=== PATIENT | male | born 1955 | race African-American/Black ===

== ENCOUNTER 2018-09-17 10:08 | Emergency (ER) | payer OTHER ==
[~2018-09-17] VITALS: Ht 175.3 cm; Wt 63.5 kg
[2018-09-17] MEDS ORDERED: NORCO 5-325 TA1 EAC1 PO (12:12)
[2018-09-17 12:32] VITALS: BP 112/68
== END 2018-09-17 12:30 | disposition home or self-care (01) ==
LOC: ER 10:08
DX: M79.662 Pain in left lower leg (principal); F17.210 Nicotine dependence, cigarettes, uncomplicated

== ENCOUNTER 2018-10-05 09:35 | Emergency (ER) | payer OTHER ==
[~2018-10-05] VITALS: Ht 175.3 cm; Wt 63.5 kg
[~2018-10-05 09:35] MED LIST: NORCO 5-325 TA1 EAC1 PO
[2018-10-05] MEDS ORDERED: MOBIC7.5 MG PO (11:46)
== END 2018-10-05 12:44 | disposition home or self-care (01) ==
LOC: ER 09:35
DX: M79.604 Pain in right leg (principal); M79.605 Pain in left leg; F17.210 Nicotine dependence, cigarettes, uncomplicated

== ENCOUNTER 2019-03-16 10:03 | Inpatient (IN) | payer OTHER ==
[~2019-03-16] VITALS: Ht 175.3 cm; Wt 43.5 kg
[2019-03-16 10:03] VITALS: BP 102/81
[~2019-03-16 10:03] MED LIST changes: +MOBIC7.5 MG PO
[2019-03-16] MEDS ORDERED: ALEVE220 M1 PO (10:15)
[2019-03-16 10:40] LABS: MCH 13.6 pg (26.0-34.0); PLATELET COUNT 846 thou/uL (150-400)
[2019-03-16 10:42] LABS: HEMATOCRIT 25.1 % (42.0-52.0); MCHC 25.6 g/dL (28.0-37.0); MCV 53.1 fL (80.0-100.0); RBC 4.73 mil/uL (4.50-6.00); RDW 24.8 % (10.5-14.5)
[2019-03-16 10:45] LABS: HEMOGLOBIN 6.4 gm/dL (14.0-18.0)
[2019-03-16 10:56] LABS: CALCIUM 9.2 mg/dL (8.5-10.1); CREATININE 1.7 mg/dL (0.7-1.3); POTASSIUM 3.6 mmol/L (3.5-5.1)
[2019-03-16 11:10] LABS: ALBUMIN 2.9 g/dL (3.4-5.0); TOTAL BILIRUBIN 0.3 mg/dL (<0.1-1.0); TOTAL PROTEIN 8.8 g/dL (6.4-8.2)
[2019-03-16 12:06] LABS: NUCLEATED RBCS 1 /100WBC
[2019-03-16 12:07] LABS: ANISOCYTOSIS 3+; TEARDROPS OCCASIONAL
[2019-03-16 12:08] LABS: HYPOCHROMASIA 3+; MICROCYTES 3+
[2019-03-16 12:11] LABS: ABSOLUTE NEUTROPHILS 10.9 thou/uL (1.4-8.2); MYELOCYTES 1 %
[2019-03-16 12:12] LABS: SCHISTOCYTES RARE
[2019-03-16 12:39] VITALS: BP 136/80; BP 142/85; BP 144/86
[2019-03-16 13:15] VITALS: BP 140/67
[2019-03-16 14:14] VITALS: BP 142/85
--- NOTE | 2019-03-16 18:44 | NUR ---
PATIENT ADMIT TO UNIT AT 1440. A/0 X4. PLEASANT. C/O ABD PAIN. DENIES N/V. WILL KEEP MONITOR.
[2019-03-16 18:54] VITALS: BP 142/90
[2019-03-16 23:49] VITALS: BP 119/68
[2019-03-17 03:10] VITALS: BP 130/86
--- NOTE | 2019-03-17 04:28 | NUR ---
ASSUMED PATIENT CARE AT 1845. VITAL SIGNS STABLE WITH PATIENT HAVING NO COMPLAINTS OF NAUSEA. PATIENT DID COMPLAIN OF ABDOMINAL PAIN FREQUENTLY WHICH WAS TREATED THROUGH MEDICATION AND NON PHARMACOLOGICAL INTERVENTION TO LIMITED SUCCESS. FULLY ALERT AND ORIENTED, PATIENT IS ABLE TO CALL APPROPRIATELY FOR NEEDS AND PARTICIPATE FULLY IN CARE. BREATHING STABLE ON ROOM AIR EVIDENCED BY ASSESSMENT AND SPOT OXYGENATION CHECKS. UP MULTIPLE TIMES WITH STANDBY ASSISTANCE INCIDENT FREE. PATIENT APPEARS STRONG AND BALANCED WHEN AMBULATING. CONTINUE PLAN OF CARE.
[2019-03-17 06:37] LABS: RBC 3.83 mil/uL (4.50-6.00)
[2019-03-17 06:39] LABS: HEMATOCRIT 22.4 % (42.0-52.0); MCH 16.1 pg (26.0-34.0); MCHC 27.6 g/dL (28.0-37.0); RDW 31.7 % (10.5-14.5); WBC 9.7 thou/uL (4.0-11.0)
[2019-03-17 06:41] LABS: MCV 58.5 fL (80.0-100.0)
[2019-03-17 06:44] LABS: HEMOGLOBIN 6.2 gm/dL (14.0-18.0)
[2019-03-17 07:18] VITALS: BP 111/59
[2019-03-17 08:09] LABS: CALCIUM 7.6 mg/dL (8.5-10.1); CREATININE 1.2 mg/dL (0.7-1.3); POTASSIUM 3.7 mmol/L (3.5-5.1)
[2019-03-17 08:28] VITALS: BP 123/77; BP 141/76; BP 146/49; BP 149/84
[2019-03-17 11:44] VITALS: BP 132/91; BP 136/70; BP 148/82
[2019-03-17 11:47] LABS: MAGNESIUM 2.3 mg/dL (1.8-2.4); PHOSPHORUS 2.2 mg/dL (2.5-4.9)
--- NOTE | 2019-03-17 12:02 | NUR ---
OSTOMY CARE CONSULT PT ALERT COOPERATIVE, SOFT SPOKEN, EDUCATION ON OSTOMY CARE/MANAGEMENT, RECEPTIVE TO EDUCATION, STOMA SITES MARKED W/ PERMANENT MARKER 'X' BILAT ABD, COVERED W/ TRANSPARENT DRSG. THIN ABD NO ABD FOLDS PRESENT, BELT LINE ~3 INCHES ABOVE SYMPYSIS PUBID, STOMA SITES MARKED ABOVE BELT LINE, INFO W/ POUCH SAMPLES LEFT AT BS, WILL FOLLOW
--- NOTE | 2019-03-17 13:23 | NUR ---
INITIAL ASSESSMENT: RAMILA reviewed chart and spoke with nursing and attending physician. Pt was admitted from home due to partial SBO/anemia. Surgery consulted. Pt to go to surgery later today. RAMILA met with pt at bedside. Introduced role of RAMILA. Pt is alert/orientated x 4. Pt reports he lives at home with his fiancee. Prior to admission, pt was independent with ADLs. Pt has a cane to assist as needed. Pt states he goes to [facility] for primary care. Pt states he does have [place] Medicaid. RAMILA explained that insurance will need to be verified. RAMILA notified UR RN. RAMILA is following to assist as needed with discharge planning.
[2019-03-17 15:39] VITALS: BP 142/75
[2019-03-17 15:42] LABS: HEMATOCRIT 33.2 % (42.0-52.0)
[2019-03-17 15:44] LABS: HEMOGLOBIN 9.5 gm/dL (14.0-18.0)
--- NOTE | 2019-03-17 20:45 | NUR ---
RECEIVED PT'S CARE AROUND 0720; PT. ON BED RESTING WITH EYES CLOSED; EQUAL CHEST RISING NOTICED; HMG 6.2; ORDERS ON PLACE; REPLACEMENT STARTED AROUND 0800; CHECH CHARTING; PT. EDUCATED ABOUT POSSIBLE BLOOD REACTION; [facility]; VS WNL AFTER 15 MIN X2 ; NO C/O THROUGH THE FIRST 15 MIN X2 ; VS WNL THROUGH THE TRANSFUSION; DR. DODGE ROUNDING EARLY ON THE MORNING; ORDER ON PLACE; NPO; AROUND NOON NG TUBE PLACEMENT; CLEAR WITH CLEAR RED SPOTS DRAINAGE; PT. C/O PAIN THROUGH THE DAY; 8-10; PRN PAIN MEDICATION GIVEN; COLOSTOMY NURSE ROUND ON PT. AROUND NOON; PT. GONE TO SURGERY CLOSE TO 1800; ASSESSMENT CHARGED; FOLLOWING POC; PASSED ON REPORT;
[2019-03-18 00:10] LABS: HEMATOCRIT 37.8 % (42.0-52.0); HEMOGLOBIN 11.2 gm/dL (14.0-18.0)
[2019-03-18 00:30] VITALS: BP 161/91
--- NOTE | 2019-03-18 03:32 | NUR ---
PT ARRIVED BACK ONTO THE UNIT AT 2430 AFTER SURGERY. RECEIVED REPORT FROM FEATURE WRITER ALMITA. PT WAS GIVEN PAIN MEDICATION WHICH MADE PT CONFUSED. ADVISED TO HOLD OFF ON IV PAIN MEDICATION. PT STATES HE WAS "SEEING PEOPLE ON THE CEILING." PT BED LOCKED SO HE CANNOT ELEVATE HOB HIGHER THAN 50 DEGREES WHICH SETS OFF THE BED ALARM. PT DAUGHTER ROOMING IN. POC WITH IVF GTT AND MONITORING NEW COLOSTOMY. PT HAS NG TUBE IN RIGHT NARE AND SUCTION HOOKED TO IT.
[2019-03-18 03:57] VITALS: BP 133/83
[2019-03-18 06:18] LABS: HEMATOCRIT 35.1 % (42.0-52.0); HEMOGLOBIN 10.2 gm/dL (14.0-18.0); MCH 19.1 pg (26.0-34.0); MCHC 29.1 g/dL (28.0-37.0); RBC 5.34 mil/uL (4.50-6.00); RDW 35.1 % (10.5-14.5); WBC 17.7 thou/uL (4.0-11.0)
[2019-03-18 06:21] LABS: MCV 65.7 fL (80.0-100.0)
[2019-03-18 06:30] LABS: ALBUMIN 1.9 g/dL (3.4-5.0); CALCIUM 7.6 mg/dL (8.5-10.1); CREATININE 1.1 mg/dL (0.7-1.3); MAGNESIUM 1.8 mg/dL (1.8-2.4); PHOSPHORUS 2.9 mg/dL (2.5-4.9); POTASSIUM 4.1 mmol/L (3.5-5.1)
[2019-03-18 07:19] VITALS: BP 139/96
--- NOTE | 2019-03-18 10:03 | NUR ---
cm noted in bar, [place] was [place] and it shows inactive. cm passed on to cm team.
--- NOTE | 2019-03-18 10:33 | NUR ---
OSTOMY CARE NOTE; POUCH INTACT, NO LEAKAGE, STOMA RED VIABLE, STOMA SUPPORT BRIDGE IN PLACE, LIQ REDDISH SEROUS DRAINAGE NOTED, NO STOOL YET, PREVENA VAC IN PLACE MID LINE INCISION W/ GOOD SEAL NOTED, FAMILY AT BS, PT ALERT, RECEPTIVE TO EDUCATION, SUPPLIES LEFT AT BS, WILL CONT TO FOLLOW CHARGE OPERATOR AWARE
[2019-03-18 11:13] LABS: URINE BILIRUBIN NEGATIVE (Negative); URINE BLOOD 2+ (Negative); URINE CLARITY CLEAR; URINE COLOR GREEN; URINE GLUCOSE-RANDOM* NEGATIVE (Negative); URINE KETONES NEGATIVE (Negative); URINE LEUKOCYTES-REFLEX TRACE (Negative); URINE NITRITE-REFLEX NEGATIVE (Negative); URINE PROTEIN (DIPSTICK) 2+ (Negative); URINE SPECIFIC GRAVITY >= 1.030 (1.005-1.035); URINE UROBILINOGEN 0.2 E.U./dl (0.2-1.0)
[2019-03-18 11:23] LABS: SQUAMOUS 0-3 Few /LPF (0-3)
[2019-03-18 11:24] LABS: AMORPHOUS URATES Few /LPF (None Seen); BACTERIA-REFLEX 1-9 Few /HPF (None Seen); HYALINE CASTS 0-3 Few /LPF (None Seen); URINE RBC 0-2 Rare /HPF (0-2); URINE WBC-REFLEX 6-15 Few /HPF (0-5); WBC CLUMPS Few (None Seen)
--- NOTE | 2019-03-18 15:21 | NUR ---
RAMILA reviewed chart and spoke with nursing. Pt is POD #1--Exploratory laparotomy, Right hemicolectomy, Creation of diverting loop ileostomy, and placement of provena wound VAC. Pt's NG tube to be removed today and start on clear liquid diet. Ostomy nurse consulted and has met with pt/family to provide education. RAMILA discussed case with Rob, who will meet with pt to assist with Medicaid application. RAMILA is following to assist as needed with discharge planning.
--- NOTE | 2019-03-18 15:33 | NUR ---
Assumed care approx. 0700 this AM. Pt ALOx4, on room air and SR on the monitor. Pt had patent NG tube and fischer cath this morning. Orders to remove both obtained. NG tube removed at 1415 and fischer cath removed at 1420. Will closely monitor urine output, urinal at bedside. Urine in fischer noted to be a clear blue green color from surgery. 3 mg of morphine Q2H PRN ordered this AM with little to no relief; Dr. aSnchez changed pain med regimen after rounding on patient. Wound vac to abdomen intact. Clear liquid diet SLOWLY started. Pt instructed to take in little bits of water and jello at a time per request from Dr. Sanchez due to distention. Pt understanding and cooperative. Will continue to monitor. Pt currently resting in bed. No complaints of n/v at this time. Pt slowly progressing toward plan of care goals.
[2019-03-18 16:27] VITALS: BP 150/87
[2019-03-18 20:26] VITALS: BP 148/95
--- NOTE | 2019-03-19 03:33 | NUR ---
pain level is becoming controlled with the addition of the toradol iv. his pain level has gone as low as a 2. he is comfortable at this time and is resting. easily awakens when he is approached. dtr at bedside. taking po clear liquids without difficulyt or nausea. careplan reviwewed.
[2019-03-19 04:11] VITALS: BP 126/81
[2019-03-19 05:50] LABS: HEMATOCRIT 28.9 % (42.0-52.0); HEMOGLOBIN 8.8 gm/dL (14.0-18.0); MCH 19.5 pg (26.0-34.0); MCHC 30.3 g/dL (28.0-37.0); MCV 64.3 fL (80.0-100.0); RBC 4.5 mil/uL (4.50-6.00); WBC 17.2 thou/uL (4.0-11.0)
[2019-03-19 06:57] LABS: ALBUMIN 1.8 g/dL (3.4-5.0); CALCIUM 7.8 mg/dL (8.5-10.1); CREATININE 1.1 mg/dL (0.7-1.3); MAGNESIUM 1.7 mg/dL (1.8-2.4); PHOSPHORUS 2.6 mg/dL (2.5-4.9); POTASSIUM 4.2 mmol/L (3.5-5.1)
[2019-03-19 07:21] VITALS: BP 148/95
--- NOTE | 2019-03-19 11:20 | NUR ---
OSTOMY CARE NOTE OSTOMY POUCH EXPLODED, 1100CC + GREENISH BILISH EFFLUENT, STOOL LEAKED INTO PREVENA VAC, NO SEAL PRESENT, REMOVED, ABD MIDLINE INCISION CLEANSED W/ SOAP AND WATER, ROSIBEL INTACT, INCISION WELL APPROXIMATED, NO REDDNESS, PRODUCT SUPPORT SPECIALIST DAVID PRESENT, PAGING DR DODGE TO SEE IF WANTS ANOTHER PREVENA REAPPLIED, TELFA DRSG W/ TRANSPARENT DRSG APPLIED OVER INCISION, NEW POUCH ELI HIGH OUTPUT APPLIED TO ILEOSTOMY, STOMA RED VIABLE BUDDED W/ STOMA SUPPORT BRIDGE IN PLACE, PERISTOMAL SKIN INTACT, PT ALERT AND COOPERATIVE, RECEPTIVE TO EDUCATION, ADAPT RING APPLIED UNDER WAFER, INSTRUCTED TO WATCH POUCH CLOSELY, EMPTY WHEN 1/2-2/3 FULL. SUPPLIES AND INFO AT BS RECOMMENDATIONS; MONITOR POUCH CLOSELY, EMPTY FREQUENTLY, CHANGE POUCH Q/3-5DAYS AND PRN, PRODUCT SUPPORT SPECIALIST AWARE
[2019-03-19 15:19] VITALS: BP 136/91
--- NOTE | 2019-03-19 15:24 | NUR ---
SW reviewed chart and spoke with nursing and attending physician. Pt is slowly progressing towards goals for discharge. Pt's diet is being advanced. Ostomy nurse is providing education on new ostomy. [employer] to meet with pt to determine if pt is eligible for Medicaid, or to get Medicaid re-instated. Plan is for pt to discharge home when medically stable. RAMILA is following to assist as needed with discharge planning.
[2019-03-19 18:09] LABS: HEMATOCRIT 31.1 % (42.0-52.0); HEMOGLOBIN 9.1 gm/dL (14.0-18.0)
--- NOTE | 2019-03-19 19:06 | NUR ---
Assumed care approx. 0700 this AM. Pt ileostomy found to be leaking this morning by applied psychology chair. At this time, the prevena wound vac dressing became soiled. power transmission engineer removed prevena dressing, cleaned incision, placed telfa and transparent dressing. Dr. Sanchez notified and okay with the current dressing situation. No new orders given for dressing. A regular diet was started at lunch time. The patient has tolerated well with no complaints of bloating/distention. Pain controlled well with PO tylenol and IV push toradol. Large output from ileostomy: 2100 ml noted. Pt showered with assistance by this RN. Bed was also changed. Family at bedside to visit. Pt progressing toward plan of care goals.
[2019-03-19 19:17] VITALS: BP 123/90
[2019-03-19 23:43] LABS: HEMATOCRIT 28.3 % (42.0-52.0); HEMOGLOBIN 8.1 gm/dL (14.0-18.0)
[2019-03-20 03:37] VITALS: BP 136/84
--- NOTE | 2019-03-20 05:59 | NUR ---
tylenol and toradol controlling pain. he has been able to rest tonight. he is getting most of his output fron the ileostomy, instead through the urinary tract. his urine continues to be olive green. the drainage from the ileostomy is also an olive green.
[2019-03-20 06:19] LABS: HEMOGLOBIN 8.4 gm/dL (14.0-18.0); MCH 18.9 pg (26.0-34.0); MCV 65.2 fL (80.0-100.0); RBC 4.45 mil/uL (4.50-6.00); RDW 35.9 % (10.5-14.5); WBC 18.1 thou/uL (4.0-11.0)
[2019-03-20 06:42] LABS: ALBUMIN 1.7 g/dL (3.4-5.0); CREATININE 1.2 mg/dL (0.7-1.3); PHOSPHORUS 2.9 mg/dL (2.5-4.9); POTASSIUM 4.3 mmol/L (3.5-5.1)
[2019-03-20 07:30] VITALS: BP 126/80
--- NOTE | 2019-03-20 10:12 | NUR ---
OSTOMY CARE POUCH INTACT, NO LEAKAGE, HIGH OUTPUT ELI APPLIANCE, CONNECTED TO DEP DRAIAGE, LARGE AMT EFFLUENT GREENISH BILISH NOTED, REVIEWED BASIC OSTOMY CARE AND USE OF HIGH OUTPUT POUCH, PT RECEPTIVE TO EDUCATION, ABD DRSG INTACT, DRY, CLEAN, WILL CONT TO FOLLOW, SUPPLIES AT BS, SECURE START DC KIT ORDERED FOR PT AND TO BE SENT TO HOME
--- NOTE | 2019-03-20 14:54 | NUR ---
SW reviewed chart and spoke with nursing. Pt is progressing towards goals for discharge. Pt's advanced to regular. Pt's HR was elevated. [employer] to meet with pt for possible Medicaid application or financial assistance program. RAMILA contacted [facility] liaison to see if they are able to provided [facility] RN visits to assist pt at home with new ostomy. RAMILA is following to assist as needed with discharge planning.
--- NOTE | 2019-03-20 15:26 | NUR ---
Assumed care approx. 0700 this AM. Heart rate noted to increase to the 120's with activity/exertion. Dr. Sanhcez notified. No new orders given. As of right now, patient is to remain on telemetry per conversation with Dr. Sanchez. Output of ileostomy still large. Maintenance fluids infusing. Pain controlled with medication regimen currently ordered. No acute changes this shift. Will continue to monitor. Pt progressing toward plan of care goals.
[2019-03-20 16:21] VITALS: BP 129/86
--- NOTE | 2019-03-20 16:45 | NUR ---
Two staff members reported that they thought a smell of cigarrette smoke was in the patient's room. The patient was asked by this RN if he had been smoking in the room. The patient did admit to smoking once & said it will not happen again. The patient was educated on the risks of smoking in a hospital with oxygen & told [facility] is a smoke [facility] [place]. Patient states his understanding and promised it will not happen again.
[2019-03-20 19:30] VITALS: BP 134/86
--- NOTE | 2019-03-21 02:20 | NUR ---
PAIN MANAGEMENT IS MAIN FOCUS OVER SHIFT. DURING HOURLY ROUNDS, PT STATES HIS STOMACH IS HURTING. BELLY IS DISTENTED. PT STATES HE DID NOT EAT ANYTHING TODAY DUE TO HIS BELLY BEING "FULL." PT STATES THE IV FLUID IS MAKING HIM FULL. CALLED ANSWERING SERVICE FOR DR. DODGE AT 0200 AND AWAITING A CALL BACK.
[2019-03-21 03:36] VITALS: BP 141/96
[2019-03-21 07:09] VITALS: BP 139/97
--- NOTE | 2019-03-21 09:12 | NUR ---
DISCHARGE PLANNING. HOME WITH 1-2 [facility] HOME HEALTH VISITS. PATIENT REFERRAL FA[facility]ED TO [facility] FOR [facility]. [facility] GONZALES INTAKE NOTIFIED. [facility] PARKER LIAISON NOTIFIED. AWAITING RESPONSE. FOLLOWING.
--- NOTE | 2019-03-21 11:08 | PATH ---
[facility] [place] [address] PATHOLOGY RPT PROCEDURE Name: DEBBI SOL Room #: 349-I ADM IN M.R.#: [id number] Admission: 03/16/19 Date of : 59 Discharge: Report #: [id number] Path Case #: [id number] Note [facility] Accession Number: [id number] TESTS RESULT FLAG UNITS REF RANGE LAB Clinician Provided Cytology Information No. of containers..01 Other (Miscellaneous) Source: 01 PERITONEAL FLUID DIAGNOSIS: 02 PERITONEAL FLUID NEGATIVE FOR MALIGNANT EPITHELIAL CELLS. REACTIVE MESOTHELIAL CELLS ARE PRESENT. THIS INTERPRETATION INCLUDES EVALUATION OF A CELL BLOCK. MODERATE ACUTE AND CHRONIC INFLAMMATION ALONG WITH MACROPHAGES. Comment: Scattered rare cells forming gland-like collections are noted. Due to the presence of a moderately differentiated adenocarcinoma within the hemicolectomy specimen, multiple properly controlled immunohistochemical are performed on the cell block. The groups of cells are strongly reactive to calretinin and desmin. Additional single cells are reactive to CD68 consistent with macrophages within the fluid. BerEP4, CDX2 and CK20 are nonreactive consistent with no evidence of metastatic carcinoma within the peritoneal fluid. Dr. Raciel Agee has seen this case and concurs with the diagnosis rendered. Pathologist ICD10: 02 C18.0 Signed out by: 02 Nataly Joyner MD, Pathologist NPI- [id number] Performed by: Avtar Rivera, Roll Over Press Operator (ASC) Gross description: 01 10 ML, VENESSA CONN /YNADY 03/18/2019 1259 Local FLAG LEGEND: L-Low Normal,H-High Normal,LL-Alert Low,HH-Alert High <-Panic Low,>-Panic High,A-Abnormal,AA-Critical Abnormal Performed at: [facility] [place] [id number] Zaheer Segovia MD, 02 LCAMO [facility] [address] [place] [address] PATHOLOGY RPT PROCEDURE Name: DEBBI SOL Room #: 349-I ADM IN M.R.#: [id number] Admission: 03/16/19 Date of : 59 Discharge: Report #: [id number] Path Case #: [id number] [address] [facility], [place] [address] Nataly Joyner MD, Specimen Comment: [id number] Performed at: [address], [place], [place] [id number] MD Zaheer Segovia MD Phone: [phone]
[2019-03-21 11:34] LABS: HEMATOCRIT 30.2 % (42.0-52.0); HEMOGLOBIN 8.8 gm/dL (14.0-18.0); MCH 18.9 pg (26.0-34.0); MCV 65.1 fL (80.0-100.0); RBC 4.63 mil/uL (4.50-6.00); RDW 36.9 % (10.5-14.5); WBC 16.4 thou/uL (4.0-11.0)
[2019-03-21 11:42] LABS: ALBUMIN 1.6 g/dL (3.4-5.0); CALCIUM 8.1 mg/dL (8.5-10.1); CREATININE 0.9 mg/dL (0.7-1.3); MAGNESIUM 1.4 mg/dL (1.8-2.4); PHOSPHORUS 3.2 mg/dL (2.5-4.9)
--- NOTE | 2019-03-21 11:44 | NUR ---
OSTOMY CARE POUCH EDGES LOOSE, NEW POUCH ELI 2 PIECE HIGH OUTPUT APPLIED, STOMA RED VIABLE BUDDED, GREENISH BILISH LIQ EFFLUENT NOTED, ABD SUTURE LINE INTACT W/ ROSIBEL WELL APPROXIMATED, NO DRAINAGE NO REDDNESS, AREA COVERED W/ TELFA AND TRANSPARENT DRSG, PT VERY RECEPTIVE TO EDUCAION, INFO AND SUPPLIES AT BS, INSTRUCTED TO PRACTICE W/ EMPTYING POUCH, PT REQUESTED POUCH NOT BE CONNECTED NOW TO DEP DRAINAGE SO HE CAN PRACTICE EMPTYING, ALSO SHOWN VELCRO CLOSING POUCH TO USE WHEN STOOL THICKENS, C/O SOME ABD DISTENSION, NO N/V, REVIEWED DIET WHEN ALLOWED TO EAT, NO FIBER, NO ROUGHAGE, ADEQ PO FLUIDS, VERBAL UNDERSTANDING 100%, SUPPLIES AT BS, WILL CONT TO FOLLOW RECOMMENDATIONS CONT HIGH OUTPUT POUCH LONG STOOL LIQ AND HIGH VOLUME, CHANGE Q3-5DAYS AND PRN, WAGE HAND INFORMED
--- NOTE | 2019-03-21 14:53 | NUR ---
SW reviewed chart and spoke with nursing and attending physician. Pt is slowly progressing towards goals for discharge. No weekend discharge planned. [facility] is able to provide [facility] RN visits. RAMILA is following to assist as needed with discharge planning.
[2019-03-21 15:41] VITALS: BP 158/96
--- NOTE | 2019-03-21 16:07 | PATH ---
[facility] [address] [address] PATHOLOGY RPT PROCEDURE Name: DEBBI SOL Room #: 349-I ADM IN M.R.#: [id number] Admission: 03/16/19 Date of : 59 Discharge: Report #: [id number] Path Case #: [id number] [facility] Accession Number: [id number] . 01 Material submitted: . colon - RIGHT COLON. Modifiers: right . 01 Clinical history: . ileocecal mass, bowel obstruction . 02 Diagnosis: Terminal ileum appendix and right colon, right hemicolectomy: - INVASIVE MODERATELY DIFFERENTIATED COLONIC ADENOCARCINOMA MEASURING 7.2 CM IN GREATEST DIMENSION AND INVADING INTO PERICOLONIC SUBSEROSAL TISSUE, SEE SYNOPTIC ASSEMBLED. - Tumor associated with marked acute inflammatory reaction and abscess formation as well as marked serositis. - Separate tubular adenoma measuring 0.5 cm; negative for high-grade dysplasia. - Appendix showing marked serositis without any evidence of malignancy. - Margins of resection free of malignancy. - Twenty-five reactive lymph nodes; negative for malignancy (0/25). (IUV:pewter caster; 03/20/2019) . Surgical Pathology Cancer Case Summary . Protocol posting date: July 2016 . COLON AND RECTUM: Resection, Including Transanal Disk Excision of Rectal Neoplasms . Procedure ___ Right hemicolectomy . Tumor Site ___ Ileocecal valve and cecum . Tumor Size Greatest dimension (centimeters): 7.2 cm . Macroscopic Tumor Perforation ___ Not identified . Histologic Type ___ Adenocarcinoma . Histologic Grade ___ G2: Moderately differentiated [facility] [address] [place] [address] PATHOLOGY RPT PROCEDURE Name: SWETADEBBI Room #: 349-I ADM IN ..#: [id number] Admission: 03/16/19 Date of : 59 Discharge: Report #: [id number] Path Case #: [id number] . Tumor Extension ___ Tumor invades through the muscularis propria into pericolorectal tissue . Margins ___ All margins are uninvolved by invasive carcinoma, high-grade dysplasia, intramucosal adenocarcinoma, and adenoma Margins examined: Distance of invasive carcinoma from closest margin: 7.5 cm Specify closest mucosal margin: proximal margin Distance of invasive carcinoma from closest margin: 2.8 cm Specify closest margin: mesenteric margin . Treatment Effect ___ No known presurgical therapy . Lymphovascular Invasion ___ Not identified . Perineural Invasion ___ Not identified . Tumor Deposits ___ Not identified . Regional Lymph Nodes . Number of Lymph Nodes Involved: 0 . Number of Lymph Nodes Examined: 25 . Pathologic Stage Classification (pTNM, AJCC 8th Edition) Note: Reporting of pT, pN, and (when applicable) pM categories is based on information available to the pathologist at the time the report is issued. . . Primary Tumor (pT) ___ pT3: Tumor invades through the muscularis propria into pericolorectal tissues . Regional Lymph Nodes (pN) ___ pN0: No regional lymph node metastasis . Distant Metastasis (pM) (required only if confirmed pathologically in this case) ___ pMx: Not known MBR 03/20/2019 1513 Local [facility] [address] [place] [address] PATHOLOGY RPT PROCEDURE Name: DEBBI SOL Room #: 349-I ADM IN .R.#: [id number] Admission: 03/16/19 Date of : 59 Discharge: Report #: [id number] Path Case #: [id number] . 02 Comment: Per [facility] cancer committee protocol, the MSI markers (4 immunohistochemical stains) are ordered on block A8. The results of this will be reported in an addendum to follow. (IUV:pewter caster; 03/20/2019) . 02 Addendum: . MICROSATELLITE INSTABILITY REPORT (MSI): . Per [facility] Cancer Committee protocol, mismatch repair (MMR) protein immunohistochemical staining was performed. . Reason for testing: To evaluate for evidence of defective mismatch repair proteins. Method: Immunohistochemical staining for the presence or absence of protein expression of one or more of the following MMR protein markers: MLH1, MSH2, MSH6 and PMS2. Tumor type:Invasive adenocarcinoma . Results: MLH1 - Preserved MSH2 - Preserved MSH6 - Preserved PMS2 - Preserved . Mismatch Repair Status:MMR Proficient (MMR-P) . Interpretation: . (MMR-P) All four MMR proteins are preserved within tumor cells. This suggests the presence of normal DNA mismatch repair function within the tumor and an observable defect in mismatch repair is not identified. The likelihood that this patient has an inherited germline mutation syndrome due to defective mismatch repair is reduced but not totally eliminated. If the patient has a strong personal or family history of HPNCC/Jones syndrome related cancers (colorectal, endometrial, gastric, ovarian, pancreatic, ureter/renal pelvis, biliary tract, brain, small bowel and Lenin-Joel syndrome), consider MSI testing by PCR methodology. Suggest clinical correlation and follow up. . These test results are designed for screening purposes only and are useful tools in identifying cancer patients that are more likely to have Jones Syndrome related diagnoses. Tests should be interpreted in the context of clinical findings, family history and laboratory data. Abnormal IHC results for MMR protein expression are not considered diagnostic for Jones Syndrome. . [address] [address] PATHOLOGY RPT PROCEDURE Name: DEBBI SOL Room #: 349-I ADM IN M.R.#: [id number] Admission: 03/16/19 Date of : 59 Discharge: Report #: [id number] Path Case #: [id number] (IUV:ramón; 03/21/2019) . Professional services performed at [facility] [address], [place] [address]. Technical services performed by [facility] at [address] [place] [address], [address], [place] [address]. MBR/03/21/2019 Addendum Electronically Signed by Nataly Joyner MD, Pathologist . 02 Electronically signed: . Nataly Joyner MD, Pathologist NPI- [id number] . 01 Gross description: . The specimen is received in formalin, labeled "Hardroberto, Debbi, right colon" and consists of a right hemicolectomy with terminal ileum measuring 10.5 cm in length and up to 4.0 cm in diameter, ascending colon (3.0 cm in length and up to 6.0 cm in diameter), pericolic fat up to 5.0 cm. There is a large palpable nodule/lymph node at the mesenteric margin measuring 3.4 cm. The cecal pouch is markedly indurated. The probable appendix is present measuring 4.0 cm in length and up to 1.7 cm in diameter. The serosa is pink-hanson with hemorrhagic adhesions. There is minimal fat attached to the specimen. Both margins have a staple line. It is opened revealing a circumferential fungating friable pink-hanson mass at the ileocecal valve/cecal pouch measuring 7.2 x 7.1 cm that is 7.5 cm from proximal, greater than 15 cm from distal, and 2.8 cm from the mesenteric margin. The specimen is placed in formalin for additional fixation. (SDY; 03/18/2019) . After overnight fixation sectioning through the mass reveals obliteration of muscular wall extending into the mesocolic tissue and also abutting the serosa. The mass does not grossly appear to involve the appendiceal orifice. The terminal ileum mucosa is pink-hanson and edematous with no mass lesions. The ascending colon mucosa is pink-hanson with reduced/flattened folds and 1 additional pink-hanson polyp measuring 0.5 x 0.5 cm. The appendix shows a markedly dilated lumen. The mesocolic tissue reveals multiple lymph node candidates measuring up to 3.5 x 3.0 cm. The lymph node show pink-hanson cut surfaces. Beater Machine Operator sections are submitted as follows: . A1: Proximal margin A2: Distal margin A3: Mass to ileocecal valve A4: Mass to proximal A5: Mass to distal A6: Mass deepest invasion A7-A8: Additional mass A9: Additional polyp A10: Appendix, margin [facility] [address] [place] [address] PATHOLOGY RPT PROCEDURE Name: DEBBI SOL Room #: 349-I ADM IN M.R.#: [id number] Admission: 03/16/19 Date of : 59 Discharge: Report #: [id number] Path Case #: [id number] A11: Appendix, bisected tip A12: One trisected lymph node A13: One trisected lymph node A14-A17: Largest lymph node, serially sectioned A18: 1 serially sectioned lymph node A19: 2 bisected lymph nodes A20: One serially sectioned lymph node A21: 7 intact lymph node candidates A22: 5 intact lymph node candidates (SDY; 03/19/2019) SYU/SYU 03/19/2019 1318 Local . 02 Pathologist provided ICD-10: C18.0, K65.8 . 02 CPT . 759761, [id number], [id number] Specimen Comment: A courtesy copy of this report has been sent to [phone] Specimen Comment: Report sent to Performed at: 01 [facility] [address], [place] [id number] MD Zaheer Segovia MD Phone: [phone] Performed at: 02 [facility] [address] [place], [place] [id number] MD Natlay Joyner MD Phone: [phone]
--- NOTE | 2019-03-21 17:07 | PATH ---
[address] [place] [address] PATHOLOGY RPT PROCEDURE Name: DEBBI SOL Room #: 349-I ADM IN M.R.#: [id number] Admission: 03/16/19 Date of : 59 Discharge: Report #: [id number] Path Case #: [id number] Note [facility] Accession Number: [id number] TESTS RESULT FLAG UNITS REF RANGE LAB Clinician Provided Cytology Information No. of containers..01 Other (Miscellaneous) Source: PERITONEAL FLUID DIAGNOSIS: 02 PERITONEAL FLUID NEGATIVE FOR MALIGNANT CELLS. REACTIVE MESOTHELIAL CELLS ARE PRESENT. CELLULAR DEGENERATION IS PRESENT. THIS INTERPRETATION INCLUDES EVALUATION OF A CELL BLOCK. Comment: Dr. Raciel Agee has seen this case and concurs with the diagnosis. Pathologist ICD10: 02 C18.0 Signed out by: 02 Nataly Joyner MD, Pathologist NPI- [id number] Performed by: 01 Beth Wyman, Set Making Machine Operator ([facility]) Gross description: 01 5 ML, PINK, CLOUDY /LCS 03/20/2019 1048 Local FLAG LEGEND: L-Low Normal,H-High Normal,LL-Alert Low,HH-Alert High <-Panic Low,>-Panic High,A-Abnormal,AA-Critical Abnormal Performed at: 01 [facility] [address] [place] [address] Zaheer Segovia MD, [address] [address] Nataly Joyner MD, Specimen Comment: A courtesy copy of this report has been sent to [phone] Specimen Comment: [id number] Specimen Comment: Report sent to DR DODGE / DR LEE Specimen Comment: A duplicate report has been generated due to demographic updates. Performed at: [address] [address] PATHOLOGY RPT PROCEDURE Name: DEBBI SOL Room #: 349-I ADM IN M.R.#: [id number] Admission: 03/16/19 Date of : 59 Discharge: Report #: [id number] Path Case #: [id number] [facility] [place] [address] [place] [address] [address], [place], [place] [id number] MD Zaheer Segovia MD Phone: [phone]
--- NOTE | 2019-03-21 18:07 | NUR ---
ASSUMED PATIENT CRAE AT 0700. A/O X4. ABD FRIM AND PAIN, ILEOSTOMY OUTPUT DARK GREEN LIQUID. FULL LIQUID DIET. SLOWLY TOWARDS POC GOALS,
[2019-03-21 19:11] VITALS: BP 128/81
[2019-03-21 23:25] VITALS: BP 124/90
--- NOTE | 2019-03-22 00:05 | NUR ---
PT RESTING IN DARK ROOM UPON ARRIVAL TO SHIFT NO C/O PAIN OR DISTENTION. PT REQUESTED SPRITE FOR HEARTBURN AND PROVIDED. PT REPORTED HEART BURN NOT RELIEVED AND REQUESTED PRN FOR NAUSEA AND PAIN, PROVIDED. PT NOTED TO HAVE ORANGE JUICE, TOMATOE JUICE, BANANAS, GATORADE AND CRACKERS AT BEDSIDE. PT DIET FULL LIQUID. PT ALSO REPORTED FEELING ABD DISTENDED FROM IVF AND REQUESTING THEY BE HELD, PT REPORTED THAT WAS DONE LAST NIGHT AND ABD WAS FLAT BY AM. DR AMES INFORMATION FROM PT SHARED RE IVF AND PEPCID ORDER OBTAINED RE HEARTBURN AND IVF ON HOLD. PTS HR INCREASED FROM 110 TO 130 TO 140. PT CONTINUED TO C/O HEARTBURN AND WAS GROANING IN BED. DR AMES AND LAB, KUB, CXR, NG TO LIS, EKG, NPO STATUS ORDERED. PT INITIALLY REFUSING NG TO LIS BUT DID COMPLY. AFTER PLACEMENT OVER 1000 DARK BROWN LIQUID REMOVED. PT REPORTED HEARTBURN GONE. ILEOSTOMY CONTINUES TO DRAIN GREEN LIQUID WITH BROWN SOFT STOOL. BS REMAIN POSITIVE, ABD DISTENDED. HR IRREG ST. PT AMBULATED STEADY GAIT TIMES ONE. GOOD EYE CONTACT, APPROPRIATE AFFECT. PT WAS TEARFUL INTIALLY RE NG TUBE PLACEMENT, HE TRIED TO CALL FAMILY TO STAY AT BEDSIDE, BUT NO ONE AVAILABLE. SINCE NG PLACEMENT PT THANKING STAFF FOR IMPROVEMENT AND BEING COMFORTABLE. HR DECREASED TO 120.
[2019-03-22 00:07] LABS: WBC 5.6 thou/uL (4.0-11.0)
[2019-03-22 00:08] LABS: HEMATOCRIT 34.3 % (42.0-52.0); HEMOGLOBIN 10.2 gm/dL (14.0-18.0); MCH 19.4 pg (26.0-34.0); MCHC 29.7 g/dL (28.0-37.0); MCV 65.4 fL (80.0-100.0); RBC 5.25 mil/uL (4.50-6.00)
[2019-03-22 00:27] LABS: ALBUMIN 1.8 g/dL (3.4-5.0); CALCIUM 8.7 mg/dL (8.5-10.1); CREATININE 1.4 mg/dL (0.7-1.3); POTASSIUM 5.2 mmol/L (3.5-5.1); TOTAL BILIRUBIN 0.2 mg/dL (<0.1-1.0); TOTAL PROTEIN 6.3 g/dL (6.4-8.2)
[2019-03-22 00:31] LABS: TROPONIN-I <0.06 ng/mL (<0.06)
--- NOTE | 2019-03-22 02:11 | NUR ---
MUNICIPAL BOND TRADER PAGED TO NOTIFY RE OVER 1000 NG OUTPUT AND ELEVATED PLATLETS, K, AND CREATNINE. HAS NOT RETURNED PAGE AT THIS TIME. PT HAS FAMILY AT BEDSIDE. NO FURTHER C/O HEARTBURN, DISTENTION OR DISCOMFORT.
[2019-03-22 05:27] VITALS: BP 113/79
[2019-03-22 05:33] LABS: HEMATOCRIT 30.7 % (42.0-52.0); HEMOGLOBIN 9.1 gm/dL (14.0-18.0); MCH 19.2 pg (26.0-34.0); MCHC 29.5 g/dL (28.0-37.0); RBC 4.72 mil/uL (4.50-6.00); RDW 36.2 % (10.5-14.5); WBC 4.7 thou/uL (4.0-11.0)
[2019-03-22 05:51] LABS: ALBUMIN 1.5 g/dL (3.4-5.0); CALCIUM 8.2 mg/dL (8.5-10.1); CREATININE 1.3 mg/dL (0.7-1.3); PHOSPHORUS 4.6 mg/dL (2.5-4.9); POTASSIUM 5.9 mmol/L (3.5-5.1)
--- NOTE | 2019-03-22 06:27 | NUR ---
PT HAD TOTAL 1700 NG LIS DARK BROWN IN COLOR. PT DENIES HEARTBURN OR DISCOMFORT IN ABD. URINE IS MARK IN COLOR.
[2019-03-22 07:25] VITALS: BP 113/70
[2019-03-22 14:40] LABS: URINE BILIRUBIN NEGATIVE (Negative); URINE BLOOD NEGATIVE (Negative); URINE CLARITY CLEAR; URINE COLOR YELLOW; URINE GLUCOSE-RANDOM* NEGATIVE (Negative); URINE KETONES NEGATIVE (Negative); URINE LEUKOCYTES-REFLEX NEGATIVE (Negative); URINE NITRITE-REFLEX NEGATIVE (Negative); URINE PROTEIN (DIPSTICK) 1+ (Negative); URINE SPECIFIC GRAVITY <= 1.005 (1.005-1.035); URINE UROBILINOGEN 0.2 E.U./dl (0.2-1.0)
[2019-03-22 14:46] LABS: BACTERIA-REFLEX None Seen /HPF (None Seen); CRYSTALS None Seen /LPF (None Seen); SQUAMOUS None Seen /LPF (0-3); URINE RBC None Seen /HPF (0-2); URINE WBC-REFLEX None Seen /HPF (0-5)
[2019-03-22 14:47] LABS: FINE GRANULAR CASTS 0-3 Few /LPF (None Seen); HYALINE CASTS 0-3 Few /LPF (None Seen)
[2019-03-22 15:54] VITALS: BP 111/72
[2019-03-22 19:26] LABS: INR 1.1; PROTIME 11.5 Seconds (9.3-11.4)
[2019-03-22 20:56] VITALS: BP 119/74
[2019-03-23 01:44] LABS: ALBUMIN 1.5 g/dL (3.4-5.0); CALCIUM 8.5 mg/dL (8.5-10.1); CREATININE 1.6 mg/dL (0.7-1.3); PHOSPHORUS 5.5 mg/dL (2.5-4.9); POTASSIUM 5.1 mmol/L (3.5-5.1)
[2019-03-23 05:13] VITALS: BP 105/69
--- NOTE | 2019-03-23 07:30 | NUR ---
PT ANXIETY LEVEL IS VERY HIGH, HE FIDGET'S WITH ALL DEVICES AND NG TUBE THAT IS TAPED TO HIS NOSE. HE REMOVED NG TUBE TAPE AND REMOVED TUBE TO 35CM. REINSERTED TUBE AND RETAPPED. PT COMPLAINS OF SORE THROAT. GOT ORDER FOR THROAT SPRAY AND NICOTINE PATCH. PT WILL TRY TO GET FOOD AND FLUIDS FROM ALL STAFF, EVEN THOUGH HE IS NPO.
[2019-03-23 07:46] VITALS: BP 111/81
[2019-03-23 07:47] LABS: HEMOGLOBIN 7.8 gm/dL (14.0-18.0)
[2019-03-23 07:49] LABS: HEMATOCRIT 27.1 % (42.0-52.0); MCH 18.4 pg (26.0-34.0); MCHC 28.6 g/dL (28.0-37.0); MCV 64.5 fL (80.0-100.0); PLATELET COUNT 545 thou/uL (150-400); RBC 4.21 mil/uL (4.50-6.00); RDW 37.1 % (10.5-14.5); WBC 9.5 thou/uL (4.0-11.0)
[2019-03-23 11:44] VITALS: BP 113/73
--- NOTE | 2019-03-23 11:55 | NUR ---
VASCULAR ACCESS TEAM CONSULTED FOR PICC PLACEMENT OK WITH NEPHROLOGY. PT'S LABS,MEDS,HISTORY,ORDER AND CONSENT VERIFIED. DISCUSSED BENEFITS AND RISKS WITH PT AND FAMILY ,VERBALIZED UNDERSTANDING. FARHAN BRACHIAL WAS WIDELY PATENT WITH USG, 4FR DL POWER PICC TRIMMED TO 41CM INSERTED TO 1CM EXTERNAL. STAT CXR ORDERED. PT TOLERATED WELL. WALLET CARD GIVEN TO PT
--- NOTE | 2019-03-23 12:40 | NUR ---
CXR CONFIRMED CAJ, PICC RELEASED FOR IMMEDIATE USE PER PROTOCOL TO JORDAN CARRANZA
[2019-03-23 13:10] LABS: ABSOLUTE NEUTROPHILS 8.3 thou/uL (1.4-8.2); METAMYELOCYTES 1 %
[2019-03-23 13:12] LABS: TARGET CELLS 1+
[2019-03-23 13:13] LABS: ANISOCYTOSIS 3+; BURR CELLS 1+; SCHISTOCYTES FEW
[2019-03-23 13:15] LABS: HYPOCHROMASIA 3+; MICROCYTES 2+
[2019-03-23 15:06] LABS: ALBUMIN 1.4 g/dL (3.4-5.0); CALCIUM 7.7 mg/dL (8.5-10.1); CREATININE 1.4 mg/dL (0.7-1.3); PHOSPHORUS 4.3 mg/dL (2.5-4.9); POTASSIUM 4.5 mmol/L (3.5-5.1)
[2019-03-23 15:10] VITALS: BP 125/69
[2019-03-23 17:17] LABS: RDW 36.7 % (10.5-14.5)
[2019-03-23 17:18] LABS: HEMATOCRIT 22.8 % (42.0-52.0); MCH 19.7 pg (26.0-34.0); MCHC 30.6 g/dL (28.0-37.0); MCV 64.6 fL (80.0-100.0); RBC 3.53 mil/uL (4.50-6.00)
--- NOTE | 2019-03-23 18:23 | NUR ---
ASSUMED PATIENT CARE AT 0700. A/O X3. FORGETFUL. WENT TO IR HAVE LUQ ABD DRAIN. VSS. ABD FRIM AND DISDENTED. C/O ABD PAIN. NG TUBE TO LLI HAS DARK GREEN LIQUID SUCTED OUT. ABD INCISION INTACT. RESTARTED HEPARIN GTT AT 1200. HBG DOWN TO 7.0 WILL HAVE ONE UNIT RBC. NOT TOWARDS POC GOALS. WILL KEEP MONITOR.
[2019-03-23 18:30] LABS: APTT 49.4 Seconds (24.5-32.8); INR 1.2; PROTIME 11.8 Seconds (9.3-11.4)
[2019-03-23 19:14] VITALS: BP 132/83
--- NOTE | 2019-03-23 21:31 | NUR ---
FAMILY CONSUMER SCIENTIST CALLED RE STARTING TPN AND DECREASING CURRENT IVF, CHANGING PEPCID TO IV. ALSO DAY LAB HGB 7, NO ORDER TO GIVE BLOOD AND CLARIFYING INFORMATION PROVIDED IN REPORT AND ASKING FOR ORDER.
--- NOTE | 2019-03-23 22:21 | NUR ---
START OF SHIFT PT AMBULATING IN ROOM, STEADY GAIT BED ALARM GOING OFF, PT LOOKING FOR CANDY. PT DISCONNECTED HIS NG FROM LIS. PT REDIRECTED BACK TO BED AND EDUCATED ON IMPORTANCE OF CALLING FOR ASSISTANCE. PT ABLE TO ANSWER ORIENTATION QUESTIONS EXCEPT FOR DATE. PT HAS SINCE CALLED OUT FOR ASSISTANCE WITH NEEDS AND REPOSITIONING. ABD FIRM, BS DECREASED ON L SIDE. ILEOSTOMY INTACT, LQUAD DRAIN INTACT, NG TO LIS. R AND L SLIV. R PICC INTACT. TPN STARTED. IVF AND ANTIBIOTICS CONTINUE. HEPARIN CONTINUES. NO C/O PAIN, DISCOMFORT, DISTENTION OR NAUSEA. PT CONTINUES TO REQUEST ICE CHIPS, BROTH ETC AND IS REDIRECTED. SWABS PROVIDED.
[2019-03-24] VITALS (12 sets, daily range): BP systolic 129–157; BP diastolic 88–104
--- NOTE | 2019-03-24 01:49 | NUR ---
PT CONTINUES TO ASK FOR BROTH WATER ICE, PROVIDED SWABS. PT RESTLESS IN BED, C/O TENDER NOSE, SORE ABD AND PRN FOR PAIN PROVIED. PT STATES WHEN HE IS IN PAIN THAT HE WANTS FOOD OR WATER TO RELIEVE THE PAIN. NOTED EMPTY BOTTLES WITH TEA BAG AT BEDSIDE.
[2019-03-24 05:31] LABS: HEMOGLOBIN 6.8 gm/dL (14.0-18.0)
[2019-03-24 05:33] LABS: HEMATOCRIT 22.2 % (42.0-52.0); MCH 19.6 pg (26.0-34.0); MCHC 30.8 g/dL (28.0-37.0); MCV 63.7 fL (80.0-100.0); RBC 3.49 mil/uL (4.50-6.00); RDW 36.9 % (10.5-14.5); WBC 6.5 thou/uL (4.0-11.0)
[2019-03-24 05:49] LABS: ALBUMIN 1.4 g/dL (3.4-5.0); CREATININE 1.1 mg/dL (0.7-1.3); MAGNESIUM 2.3 mg/dL (1.8-2.4); PHOSPHORUS 3.5 mg/dL (2.5-4.9); TOTAL BILIRUBIN 0.1 mg/dL (<0.1-1.0); TOTAL PROTEIN 5.7 g/dL (6.4-8.2)
--- NOTE | 2019-03-24 06:02 | NUR ---
AM NG DRAINAGE GREEN VERSUS BROWN.
[2019-03-24 08:44] LABS: SOURCE ABDOMINAL
--- NOTE | 2019-03-24 13:18 | NUR ---
.ASSUMED PATIENT CARE AT 0700. A/O 3. NG TUNE TO LLS HAS WHITE CREAMY STAFF CAME OUT THAT NOTED PATIENT DRANKED ENSURE.NO ANY OUT PUT FROM ILEOSTOMY. NOTED LUQ DRAIN HAS STOOL LIKE STAFF ANDRA DODGE NOTIFIED. PATIENT WILL HAVE REPEAT EXPLORATORY LAPAROTOMY LATE AFTERNOON. PATIENT IS RECEIVING ONE UNIT BLOOD NOW.VSS. WILL KEEP MONITOR.
--- NOTE | 2019-03-24 13:26 | 2DMMODE ---
[address] [address] 2 D/M-MODE ECHOCARDIOGRAM Name: DEBBI SOL Room #: 350-P ADM IN M.R.#: [id number] Admission: 03/16/19 Attend Phys: Chilango Eckert MD Discharge: Date of : 59 Report #: [id number] THIS REPORT FOR: cc: [facility] physician unknown [facility] physician unknown Buck Dale MD [facility] ~ THIS REPORT FOR: //name// APPROVED REPORT Study performed: 03/24/2019 12:24:01 EXAM: Comprehensive 2D, Doppler, and color-flow Echocardiogram Patient Location: Bedside Room #: 350 Status: routine BSA: 1.58 HR: 102 bpm BP: 139/93 mmHg Rhythm: Tachycardia Other Information Study Quality: Technically Difficult Indications Hypertension/HDD Bilateral renal infarct. Rule out thrombus. 2D Dimensions IVC: 16.00 mm Volumes Left Atrial Volume (Systole) Single Plane 4CH: 45.28 mL Single Plane 2CH: 29.12 mL LA ESV Index: 27.00 mL/m2 Aortic Valve AoV Peak Bennie.: 1.27 m/s AO Peak Gr.: 6.43 mmHg LVOT Max P.19 mmHg LVOT Max V: 1.02 m/s Mitral Valve E/A Ratio: 0.[address] [address] 2 D/M-MODE ECHOCARDIOGRAM Name: DEBBI SOL Room #: 350-P ADM IN M.R.#: [id number] Admission: 03/16/19 Attend Phys: Chilango Eckert MD Discharge: Date of : 59 Report #: [id number] MV Decel. Time: 232.18 ms MV E Max Bennie.: 0.68 m/s MV A Bennie.: 1.12 m/s MV PHT: 67.33 ms IVRT: 145.33 ms Pulmonary Valve PV Peak Bennie.: 1.14 m/s PV Peak Gr.: 5.19 mmHg Pulmonary Vein P Vein S: 0.59 m/s P Vein A: 0.34 m/s P Vein D: 0.40 m/s P Vein A Dur.: 62.3 msec P Vein S/D Ratio: 1.48 Tricuspid Valve TR Peak Bennie.: 2.70 m/s TR Peak Gr.: 29.16 mmHg PA Pressure: 34.00 mmHg Left Ventricle The left ventricle is normal size. There is global hypokinesis of the left ventricle. There is normal left ventricular wall thickness. Left ventricular systolic function is mild-moderately decreased. Discordant septal motion. LVEF is 40-45%. Mild diastolic dysfunction is present (impaired relaxation pattern). Right Ventricle The right ventricle is normal size. The right ventricular systolic function is normal. Atria The left atrium size is normal. The right atrium size is normal. Aortic Valve The aortic valve is normal in structure. No aortic regurgitation is present. There is no aortic valvular stenosis. Mitral Valve The mitral valve is normal in structure. Trace to mild mitral regurgitation. No evidence of mitral valve stenosis. Tricuspid Valve The tricuspid valve is normal in structure. There is trace to mild tricuspid regurgitation. Estimated PAP 35 mmHg. There is mild pulmonary hypertension. [facility] [address] [place] [address] 2 D/M-MODE ECHOCARDIOGRAM Name: DEBBI SOL Room #: 350-P ADM IN [facility].#: [id number] Admission: 03/16/19 Attend Phys: Chilango Eckert MD Discharge: Date of : 59 Report #: [id number] Pulmonic Valve The pulmonary valve is normal in structure. Trace pulmonic regurgitation. Great Vessels The aortic root is normal in size. IVC is normal in size and collapses >50% with inspiration. Pericardium There is no pericardial effusion. <Conclusion> Technically difficult study Left ventricular systolic function is mild-moderately decreased. Discordant septal motion. LVEF is 40-45%. Mild diastolic dysfunction The aortic valve is normal in structure. No aortic regurgitation or stenosis. The mitral valve is normal in structure. Trace to mild mitral regurgitation. There is trace to mild tricuspid regurgitation. Estimated pulmonary artery pressure of 35 mmHg. There is no pericardial effusion. <ELECTRONICALLY SIGNED> By: Buck Dale MD, [facility] 03/24/19 1325 1324 132 Buck Dale MD, FACC /INF
[2019-03-24 14:07] LABS: BODY FLUID AMYLASE 139 U/L (()); BODY FLUID CREATININE 1.4 mg/dL (Not Estab.)
--- NOTE | 2019-03-24 14:13 | NUR ---
SW reviewed chart and spoke with nursing and attending physician. Pt not progressing. Pt had NG tube placed. Pt may be started on TPN. Pt's hemoglobin dropped and is getting 1 unit of PRBC today. Pt may need an EGD if hemoglobin continues to drop. Hem/Onc following pt. Pt has applied for [place] Medicaid. SW is following to assist as needed with discharge planning.
--- NOTE | 2019-03-24 22:30 | NUR ---
PT ARRIVED FROM SURGERY AT BEGINNING OF SHIFT. NG TO LIS GREEN YELLOW DRAINAGE, TPN INCREASED RATE, IVF CONTINUE. HEPARIN ON HOLD. ILEOSTOMY TO DD, SHETH TO DD, L SIDE TWO CONRAD SEROSANG. PT ALERT TO SELF AND SITUATION, PT IMPULSIVE RESTLESS, ATTEMPTING TO WALK AND WANTING TO SLEEP ON THE END OF THE BED. PT REPORTED ABD DISCOMFORT AND TENDER AND PRN PROVIDED. VS MONITORED POST PROCEDURE. PT ASKING FOR WATER AND TO GET UP TO GO TO THE BATHROOM PT REORIENTED. PTS SERGEY VISITED, SHE WAS ASKING QUESTIONS REGARDING STOMACH CANCER AND POSSIBLE NEXT STEPS RE KIDNEY CONCERNS.
[2019-03-25 02:17] VITALS: BP 132/93
[2019-03-25 05:51] LABS: HEMATOCRIT 32.9 % (42.0-52.0); MCH 22.2 pg (26.0-34.0); RBC 4.6 mil/uL (4.50-6.00); RDW 35.2 % (10.5-14.5); WBC 13.2 thou/uL (4.0-11.0)
[2019-03-25 06:01] LABS: HEMOGLOBIN 10.2 gm/dL (14.0-18.0); MCV 71.6 fL (80.0-100.0)
[2019-03-25 06:08] LABS: % SATURATION 5 % (20-39); IRON 8 ug/dL (65-175); TIBC 156 ug/dL (250-450)
[2019-03-25 06:16] LABS: ALBUMIN 1.4 g/dL (3.4-5.0); CALCIUM 7.6 mg/dL (8.5-10.1); MAGNESIUM 2.1 mg/dL (1.8-2.4); PHOSPHORUS 3.1 mg/dL (2.5-4.9); POTASSIUM 4.1 mmol/L (3.5-5.1)
[2019-03-25 07:47] VITALS: BP 139/97
--- NOTE | 2019-03-25 09:02 | NUR ---
taken for VINICIO at 0700. Returned at 0830 not having VINICIO as per Dr. Dale judgement d/t recient surgery. Call placed to Dr Sanchez office to clarify heparin orders. return call still pending.
[2019-03-25 15:27] VITALS: BP 126/80
--- NOTE | 2019-03-25 17:04 | NUR ---
SW reviewed chart and spoke with nursing and attending physician. Pt had surgery yesterday. NG tube in place. Pt is on TPN. Cardiology consulted today. [facility] is able to provide [facility] visits when pt is discharged. RAMILA is following to assist as needed with discharge planning.
[2019-03-25 19:39] VITALS: BP 127/80
--- NOTE | 2019-03-26 00:07 | NUR ---
PT NOTED TO HAVE INCREASE IN HR 128 FOR APPROXIMATELY AN HOUR, PT REPOSITIONING IN BED WATCHING TV. IVF STOPPED THIS EVENING. PAIN MED CHANGED TO DILAUDID RECEIVED TWO DOSES THIS BRANDON. PT DID HAVE VISIT FROM SON AND CALL FROM OLDEST SISTER. BP 118/87. PT NOT C/O PAIN. CASEY SAW OPERATOR NOTIFIED. PT NOT SYMPTOMATIC.
[2019-03-26 00:09] VITALS: BP 118/87
[2019-03-26 02:24] VITALS: BP 131/92
--- NOTE | 2019-03-26 05:25 | NUR ---
PT AWAKE MOST OF THE NIGHT WATCHING TV, ASKING STAFF FOR WATER, ICE OR TO GET UP. PT REPOSITIONED PROVIDED PRN PAIN MEDS AND PT WOULD REST AND SLEEP. WHEN PT SLEEPING HR 120S. WHEN PT RESTLESS HR 138. NURSE NOTICED REESES WRAP IN TRASH AT PTS BEDSIDE THAT WAS NOT THERE PRIOR TO MN. PT DENIES EATING OR DRINKING, FAMILY AT BEDSIDE DENIES PT HAVING ANYTHING TO DRINK. THIS AM PT RESTLESS WANTING FREQUENT REPOSITIONING, VERBALIZING HE WANTS TO LEAVE AND GO TO ANOTHER HOSPITAL SO HE CAN HAVE SOMETHING TO EAT. PT HAS BEEN REMOVING HIS BINDER. PT ALSO REPOSITIONING SELF VERSUS WAITING FOR ASSISTANCE.
[2019-03-26 05:41] LABS: HEMATOCRIT 34.1 % (42.0-52.0); HEMOGLOBIN 10.3 gm/dL (14.0-18.0); MCH 22.1 pg (26.0-34.0); MCHC 30.3 g/dL (28.0-37.0); MCV 72.9 fL (80.0-100.0); RBC 4.68 mil/uL (4.50-6.00); RDW 35.1 % (10.5-14.5); WBC 18.1 thou/uL (4.0-11.0)
[2019-03-26 05:57] LABS: ALBUMIN 1.4 g/dL (3.4-5.0); CALCIUM 7.5 mg/dL (8.5-10.1); MAGNESIUM 1.7 mg/dL (1.8-2.4); POTASSIUM 3.6 mmol/L (3.5-5.1)
--- NOTE | 2019-03-26 06:16 | NUR ---
PT THREW HIS ITEMS OFF HIS BEDSIDE TABLE BECAUSE HE WAS NOT ABLE TO USE THE BED FUNCTIONS, PT ASSISTED WITH REPOSITIONING BED AND LEGS. PT REPORTED WANTING A SLEEPING PILL AND AGREED THAT HE IS RESTLESS AND ANXIOUS. DIGESTER COOK NOTIFIED OF AM BEHVIORS.
--- NOTE | 2019-03-26 06:23 | NUR ---
CONSULT FOR PSYCH ATTEMPTED TO CALL, PHONE CONTINUES TO RING WILL HAVE DAY PLANT RELIABILITY ENGINEER F/U.
--- NOTE | 2019-03-26 06:36 | NUR ---
SURGEON CONSTRUCTION CONTRACTOR CONTACTED TO NOTIFY OF TACHY AND PT BEHAVIORS. CANCELED PSYCH CONSULT ORDERED EKG.
[2019-03-26 08:00] VITALS: BP 128/95
[2019-03-26 15:36] VITALS: BP 121/90
[2019-03-26 19:16] VITALS: BP 121/87
--- NOTE | 2019-03-26 19:54 | NUR ---
PATIENT CONT HAVE ON AND OFF EPISODES OF TACHYCARDIA TODAY MOSTLY WHEN HE IS IN PAIN. HEART RETURNS TO SINUS RYTHM WHEN HE IS NOT IN PAIN. PATIENT KEEP ON INSISTING TO EAT DESPITE DR ORDERS AND NUMEROUS EXPLANATIONS. HE HAS BEEN EDUCATED ON DIET TO NO AVAIL. WILL CONT WITH PLAN OF CARE.
--- NOTE | 2019-03-27 04:02 | NUR ---
Patient making very slow progress towards outcome goals. Oxygenation optimal on room air. Patient being very difficult, wanting to drink, cautioned he is NPO and allowed only a cup of ice every 6hrs, wants the sugeon called to remove his NGT while he is c/o nausea and abdominal pain. Tolerated NGT clamped for 6 hours, continued to c/o nausea 4 hours after reconnecting to suction requiring Hydromorphone and Zofran for relief. BP stable, tachycardia usually 110's up to 130-160 when out of bed, in pain or upset about not getting a drink. Ileostomy draining liquid dark gressn, CONRAD x 2 left side of abdomen draining serous. Low urine output. TPN infusing. High fall risks, fall precautions in place.
[2019-03-27 04:13] VITALS: BP 148/86
[2019-03-27 06:04] LABS: CALCIUM 7.4 mg/dL (8.5-10.1); CREATININE 1.1 mg/dL (0.7-1.3); MAGNESIUM 2.2 mg/dL (1.8-2.4); PHOSPHORUS 2.6 mg/dL (2.5-4.9)
[2019-03-27 07:26] VITALS: BP 116/87
[2019-03-27 07:48] LABS: ABSOLUTE NEUTROPHILS 11.2 thou/uL (1.4-8.2); BASOPHILS 0.2 % (0.0-2.0); HEMATOCRIT 32.2 % (42.0-52.0); HEMOGLOBIN 9.7 gm/dL (14.0-18.0); LYMPHOCYTES 10.5 % (24.0-44.0); MCH 21.9 pg (26.0-34.0); MCHC 30.3 g/dL (28.0-37.0); MCV 72.3 fL (80.0-100.0); MONOCYTES 5.9 % (1.0-8.0); PLATELET COUNT 470 thou/uL (150-400); POLYS 83.4 % (36.0-66.0); RBC 4.45 mil/uL (4.50-6.00); WBC 13.4 thou/uL (4.0-11.0)
--- NOTE | 2019-03-27 07:53 | NUR ---
NUTRITION RECOMMENDATION: Recommend slight increase in TPN rate to at least 65 ml/hr to better meet estimated energy needs. Current TPN rate of 55 ml/hr, meets only ~80% energy needs. At 65 ml/hr, will provide 1560 kcals (94% energy needs for goal of wt gain), 78 g protein.
[2019-03-27 08:45] LABS: HYPOCHROMASIA 1+; PLATELET ESTIMATE INCREASED; TARGET CELLS 2+
[2019-03-27 08:46] LABS: ANISOCYTOSIS 2+; MICROCYTES 2+; SCHISTOCYTES FEW
--- NOTE | 2019-03-27 10:34 | NUR ---
OSTOMY CARE POUCH INTACT, NO LEAKAGE, BILISH GREEN EFFLUENT PRESENT, SUPPLIES AT BS, WILL CONT TO FOLLOW, PLAN TO CHANGE APPLIANCE TOMORROW
--- NOTE | 2019-03-27 13:36 | NUR ---
SW reviewed chart and spoke with nursing and attending physician. Pt's NG tube clamped today. Pt remains on TPN and has CONRAD drains in place. [facility] is following for HH visits at time of discharge. [employer] has submitted Medicaid application on pt's behalf. RAMILA is following to assist as needed with discharge planning.
[2019-03-27 16:03] VITALS: BP 105/65
[2019-03-27 19:19] VITALS: BP 120/92
[2019-03-28 03:59] VITALS: BP 103/80
--- NOTE | 2019-03-28 05:53 | NUR ---
Pt. rested intermittently during the night. Pain med given with some relief. Tolerating room air well with no respiratory distress. Tachycardic in the 100's to 110's at rest then 120's to 130's when awake and restless. Frequent reorientation given. Afebrile. TPN and IV fluids infusing. NG had 300 ml of dark green dge at HS then zero this am. CONRAD x2 had 25 ml's each , one serous then the other serosanguinous. Ileostomy had 900 ml of greenish dge this shift. Mid abdominal incision well approximated with krista intact. Pt. very impulsive , got out of bed and ambulated in hallway naked with BOILER/CHILLER TECHNICIAN assisting him. He insisted he needs to get out of here and will not stop walking until other staff members came in to help. Used phone in his room and called the unit to tell staff he's checking out. Frequent reorientation given to pt. Will continue to monitor.
[2019-03-28 06:40] LABS: CALCIUM 7.6 mg/dL (8.5-10.1); CREATININE 1.3 mg/dL (0.7-1.3); MAGNESIUM 2.2 mg/dL (1.8-2.4); POTASSIUM 3.8 mmol/L (3.5-5.1)
[2019-03-28 07:13] VITALS: BP 119/90
--- NOTE | 2019-03-28 10:06 | NUR ---
OSTOMY CARE POUCH INTACT, ON SINCE SURGERY, CHANGED USING 2 PIECE SYSTEM, ELI HIGH OUTPUT, ADAPT RING APPLIED UNDER WAFER, LOOP STOMA RED VIABLE BUDDED W/ LARGE AMT BILISH GREEN EFFLUENT, PERISTOMAL SKIN INTACT, DROWSY BUT COOPERATIVE, MIDLINE ABD INCISION INTACT W/ MESH COVERING, SUPPLIES AT BS,WILL CONT TO FOLLOW RECOMMENDATIONS; CONT HIGH OUTPUT POUCH LONG STOOL LIQ W/ ADAPT RING UNDER WAFER, CHANGE Q 3-5 DAYS, SUB ACUTE CARE NURSE INFORMED
--- NOTE | 2019-03-28 13:08 | NUR ---
SW reviewed chart and spoke with nursing and attending physician. Pt is slowly progressing towards goals for discharge. Pt remains on TPN. Pt has new ostomy and CONRAD drains in place. No weekend discharge planned. [facility] following for HH visits at time of discharge. SW is following to assist as needed with discharge planning.
--- NOTE | 2019-03-28 18:40 | NUR ---
PATIENT HAS RESTED IN ROOM THROUGH THE DAY. NG TUBE TAKEN OUT TODAY AND HE TOLERATED WELL. HE IS NOW ON CLEAR LIQUID DIET. HE KEEPS INSISTING HE CAN EAT ANYTHING. REEDUCATED ON CLEAR LIQUID DIET. HE IS ALERT TO SELF AND PLACE. RESPIRATIONS ARE NON LABORED. PLEASANT AT THIS TIME.
[2019-03-28 19:22] VITALS: BP 120/91
--- NOTE | 2019-03-28 23:23 | NUR ---
PT RESTLESS IN BED, CRAWLING TO THE TOP OF THE BED, , PULLING ON JPS, ILEOSTOMY AND PICC LINE, NOT FOLLOWING VERBAL REDIRECTION. ASKING FOR FOOD FROM THE [place], PT ON CL LIQS. TPN AND IVF CONTINUE. FIANCE AT BEDSIDE. PT ORIENTED TO SELF AND SITUATION. PRN FOR PAIN X 1. ILEOSTOMY OUTPUT DARK GREEN LIQUID. JPS SEROUS DRAINAGE. LUNGS WHEEZE IN LLLOBE.
[2019-03-29 03:20] VITALS: BP 119/90
[2019-03-29 06:00] LABS: HEMATOCRIT 28.4 % (42.0-52.0); HEMOGLOBIN 8.6 gm/dL (14.0-18.0); MCH 21.8 pg (26.0-34.0); MCHC 30.1 g/dL (28.0-37.0); MCV 72.3 fL (80.0-100.0); RBC 3.93 mil/uL (4.50-6.00); RDW 36.2 % (10.5-14.5); WBC 13.2 thou/uL (4.0-11.0)
[2019-03-29 06:21] LABS: CALCIUM 7.5 mg/dL (8.5-10.1); CREATININE 1.1 mg/dL (0.7-1.3); MAGNESIUM 1.7 mg/dL (1.8-2.4); PHOSPHORUS 2.6 mg/dL (2.5-4.9); POTASSIUM 3.9 mmol/L (3.5-5.1)
[2019-03-29 07:08] VITALS: BP 109/86
[2019-03-29 15:32] VITALS: BP 111/85
--- NOTE | 2019-03-29 18:38 | NUR ---
RECEIVED PT'S CARE AROUND 0700; PT. RESTING WITH EYES CLOSED; EQUAL CHEST RISING NOTICED; DURING AM ASSESSMENT C/O PAIN OVER ABDOMEN; 06/28; REFUSED PRN PAIN MEDICATION; EDUCATED ABOUT PAIN MANAGEMENTL; ST. UNDERSTANDING; AM MEDICATION GIVEN; PER ORDER IV FLUIDS D/C; DR. SALES ROUNDING ON THE MORNING; DIET ADVANCED TO FULL LIQUIDS; PT. NOTIFIED; CONRAD DRESSINGS CHANGED; ILEOSTOMY BAG LEAKING; CHANGED; ILEOSTOMY OUTPUT 1450; REFUSED GABAPENTIN DURING THE AFTERNOON; POOR APPETITE THROUGH THE DAY; ST ON THE MONITOR; EARLY ON THE AFTERNOON PRN PO PAIN MEDICATION GIVEN; ASSESSMENT CHARGED; FOLLOWING POC; WILL PASS ON REPORT;
[2019-03-29 21:29] VITALS: BP 129/95
--- NOTE | 2019-03-30 03:10 | NUR ---
ASSUMED PT CARE AROUND 1900. ORIENTED TO PERSON AND PLACE. PT HAS PERIODS OF CONFUSION DURING THE NIGHT. REORIENTATION PROVIDED. C/O ABDOMINAL PAIN. PT WAS GIVEN PAIN MEDICATION PER EMAR ORDERS. VOIDS PER URINAL. ILEOSTOMY WITH LARGE AMOUNT OF DARK GREEN LIQUID OUTPUT INTO DEPENDENT DRAINAGE BAG. HE SLEPT OFF AND ON DURING THE NIGHT. PT AWAKENS AND BECOMES TACHYPENIC WITH INCREASED PAIN. TPN INFUSING VIA PICC LINE. NO C/O NAUSEA. FALL PRECUATIONS IN PLACE. PROGRESSING SLOWLY TOWARD POC GOALS. WILL CONTINUE TO MONITOR FURTHER.
[2019-03-30 03:40] VITALS: BP 127/97
[2019-03-30 07:32] VITALS: BP 125/91
[2019-03-30 15:15] VITALS: BP 114/90
--- NOTE | 2019-03-30 19:26 | NUR ---
pt is A&OX3, PT is continuing TPN @ 70ml/hr and IV ABX, PT's ileostomy and L side abd ck dranage tube are working well, pt's pain can contorl by medications, RN has notifed DR and pt's family about pt does not eating breakfast and lunch , pt eats 40% at dinner time.pt's vs are stable , pt is going to NPO after MN for VINICIO test tomorrow.
[2019-03-30 20:12] VITALS: BP 127/77
--- NOTE | 2019-03-30 21:05 | HC ---
[facility] [address] CONSULTATION Name: KELLYDEBBI FRITZ Room #: 350-P ADM IN M.R.#: [id number] Admission: 03/16/19 Attend Phys: Chilango Eckert MD Discharge: Date of : 59 Report #: [id number] THIS REPORT FOR: cc: [facility] - Clinic physician unknown [facility] - Clinic physician unknown Debbi Champagne MD ~ THIS REPORT FOR: //name// CC: Autumn Guzman MD [facility] unknown Chilango Eckert MD [facility] REQUESTING PHYSICIAN: Dr. Huber Loyola. ADMITTING PHYSICIAN: Dr. Chilango Eckert. REASON FOR CONSULTATION: Ileocecal mass with truncal adenopathy and ascites. HISTORY OF PRESENT ILLNESS: The patient is a very pleasant 64-year-old gentleman from the [place] area, who has about a 1 or 2-week history of altered bowel habits and weight loss. He was admitted on 03/16. Unfortunately, on a scan he was found to have ileocecal mass that was thought to be partially obstructing and a high-grade partial small-bowel obstruction. Initial CT also showed a large circumferential mass involving the terminal ileum and the cecum. The patient underwent surgery, I believe, on 03/17 with the procedure described as exploratory laparotomy with right hemicolectomy, creation of diverting loop ileostomy and placement of a Prevena wound VAC. Findings were no peritoneal metastasis appreciated. No omental metastasis appreciated. No hepatic metastasis appreciated. Large bulky lymphadenopathy involving the ileocecal trunk. Retrohepatic structures including gonadal vessels tightly adherent to the cecum. Mucinous-appearing ascites. Large cecal mass; solid, not mucinous. Ascites was sent for cytology, which is not back yet. Other pathology is not back yet. The patient is currently postop several days. He has an NG in place, dry throat. Previous to this, he had not really had any specific fevers or chills; did have the weight loss, not aware of any lymphadenopathy. I do not think he had any awareness of any blood in his urine or stool. No ankle swelling. Also during this hospitalization, CAT scan revealed changes consistent with renal infarcts. The patient had some hypercoag labs drawn, I think yesterday that are pending or today, including factor V Leiden, protein C and protein S, and I [address] [address] CONSULTATION Name: DEBBI SOL Room #: 350-P ADM IN .R.#: [id number] Admission: 03/16/19 Attend Phys: Chilango Eckert MD Discharge: Date of : 59 Report #: [id number] believe cardiolipin antibodies. Note that in the future, we will need to check prothrombin gene mutation, lupus anticoagulants and beta-2 glycoprotein antibodies. CURRENT HISTORY: Includes the ileocecal mass, also renal infarcts. Also, most likely iron deficiency anemia with microcytosis, though iron test is not back. He has received 3 units of blood so far. SOCIAL HISTORY: Quit smoking the day he was admitted. At this time, denies any drug or alcohol abuse. 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 He lives at about [address] [place] [address], does not have insurance. FAMILY HISTORY: Mother, father without cancer. He had 4 sisters, 3 brothers without cancer. I think he has had 3 daughters and 2 sons; one of his daughters has asthma if I recall. ALLERGIES: None reported. MEDICATIONS: At this time in the hospital currently include famotidine 20 IV daily, D5 normal saline, TPN with lipids, metronidazole IV, ceftriaxone IV, heparin on a protocol. Note that his baseline aPTT was elevated at 42.8. Also, nicotine patch 14 grams daily patch. Lots of other PRNs including magnesium sulfate, oxycodone, morphine. He is also on iron, gabapentin 300 mg t.i.d., Tylenol p.r.n. and Zofran p.r.n. LABORATORY REVIEW: Notable for current BUN of 18, creatinine of 1.1. Transaminases normal. Albumin 1.4, like I said baseline aPTT on 03/23/2019 at 01:11 was 42.8. Hemoglobin on admit 6.4, currently 6.8; he has received 3 units of blood. MCV on admit 53, today 63. RDW at 36.9. Platelets on admit 846, today 568. Differential did include metamyelocytes and myelocytes at various times. Also, he had some chris cells and schistocytes. As mentioned above, pending lab including factor V, antithrombin III, protein C and protein S, anticardiolipin IgM and IgG. CEA was 8.4 on 03/17 preoperatively. Note that cytology and fluid and pathology and specimen pending. RADIOLOGIC STUDIES: Include the CT of abdomen and pelvis on 03/16, describing a large circumferential mass involving the terminal ileum with also mild 4 quadrant abdominal ascites. The mass on CT measured 6.5 x 6.[address] chest done earlier showed no evidence of metastatic disease, small bilateral pleural effusions. Another CT abdomen done on 03/22 shows extensive multifocal wedge-shaped areas of hypoperfusion of the kidneys that have developed since the prior exam. Renal ultrasound ordered and pending. PHYSICAL EXAMINATION: VITAL SIGNS: Height is 5 feet 9 inches, 175.3 cm. Weight is 107 pounds or 48.5 kg. Recent blood pressure is 143/88, O2 sat 100%, respirations 20, pulse 100, [facility] [address] [place] [address] CONSULTATION Name: DEBBI SOL Room #: 350-P ADM IN M.R.#: [id number] Admission: 03/16/19 Attend Phys: Chilango Eckert MD Discharge: Date of : 59 Report #: [id number] temperature 98.6. GENERAL: The patient is alert and oriented and pleasant. LUNGS: Clear anteriorly. HEENT: He does have an NG tube in his nares. LYMPHATICS: No enlarged lymph nodes in the supraclavicular, cervical, axillary or inguinal region. ABDOMEN: Postop, not clearly examined. EXTREMITIES: He is moving without clubbing, cyanosis or edema. NEUROLOGIC: Speech pattern is normal. ASSESSMENT AND PLAN: 1. Cecal mass with ileal trunk adenopathy and ascites. Await path report. The patient is aware of concerns about cancer. We will need completion colonoscopy. 2. Interval renal infarct, currently on heparin anticoagulation. No signs of bleeding. We may need additional hypercoag workup that might include prothrombin gene mutation, DRVVT, beta 2 glycoprotein and PTT 1:1 mix if the elevation persists. At some point, could transition to Lovenox and oral anticoagulant, though we will probably need to check insurance to see which oral anticoagulant may be appropriate for this gentleman. 3. Elevated partial thromboplastin time. As best I can tell, I think the medication was begun after the PTT was drawn. 4. Renal insufficiency appears to be improving. 5. Ascites. Await cytology. 6. Probable iron deficiency. He is with no prior history of microcytosis over anemia trouble per the patient. We will check iron and may consider IV iron. 7. Protein-calorie malnutrition. Continuous TPN. 8. Other issues. We will need completion colonoscopy at some point. 9. Social issues. Insurability may be an issue with regards to anticoagulant. <ELECTRONICALLY SIGNED> By: Debbi Champagne MD 03/30/19 2105 0751 [id number] Debbi Champagne MD /nt
[2019-03-31 02:55] VITALS: BP 165/76
--- NOTE | 2019-03-31 03:57 | NUR ---
dtr stays at bedside at night. abdominal pain awakens him from his sleep. I encourgaed him to call for pain medication before it is at a high level. he is concerned about how the pain level will be managed at home. he took a small amount of ensure tonight with his evening pills. He has been npo since midnight. he is aware of his VINICIO this morning. careplan reviewed.
[2019-03-31 06:21] LABS: BASOPHILS 3.3 % (0.0-2.0); EOSINOPHILS 0.2 % (0.0-3.0); HEMATOCRIT 28.9 % (42.0-52.0); HEMOGLOBIN 8.9 gm/dL (14.0-18.0); LYMPHOCYTES 7.8 % (24.0-44.0); MCH 22.1 pg (26.0-34.0); MCHC 30.6 g/dL (28.0-37.0); MCV 72.2 fL (80.0-100.0); POLYS 84.7 % (36.0-66.0); RBC 4.01 mil/uL (4.50-6.00); RDW 36.4 % (10.5-14.5); WBC 15.4 thou/uL (4.0-11.0)
[2019-03-31 06:30] LABS: PLATELET COUNT 802 thou/uL (150-400)
[2019-03-31 06:47] LABS: ALBUMIN 1.4 g/dL (3.4-5.0); CALCIUM 7.6 mg/dL (8.5-10.1); CREATININE 1.1 mg/dL (0.7-1.3); MAGNESIUM 1.7 mg/dL (1.8-2.4); POTASSIUM 4.6 mmol/L (3.5-5.1); TOTAL BILIRUBIN 0.2 mg/dL (<0.1-1.0); TOTAL PROTEIN 6.5 g/dL (6.4-8.2)
[2019-03-31 07:23] VITALS: BP 124/94
[2019-03-31 08:55] LABS: ANISOCYTOSIS 1+; HYPOCHROMASIA 2+; LARGE PLATELETS MANY; MICROCYTES 2+; PLATELET ESTIMATE MARKEDLY INCREASED; TARGET CELLS 3+
--- NOTE | 2019-03-31 09:46 | TEE ---
[facility] [place] [address] TRANSESOPHAGEAL ECHOCARDIOGRAM Name: DEBBI SOL Room #: 350-P ADM IN M.R.#: [id number] Admission: 03/16/19 Attend Phys: Chilango Eckert MD Discharge: Date of : 59 Report #: [id number] THIS REPORT FOR: cc: [facility] - [facility] physician unknown [facility] physician unknown Buck Dale MD [facility] ~ APPROVED REPORT Study performed: 03/31/2019 08:19:20 EXAM: Comprehensive 2D, Doppler, and color-flow Echocardiogram Patient Location: In-Patient Room #: 350 Status: routine BSA: 1.53 HR: 122 bpm BP: 125/94 mmHg Rhythm: Tachycardia Other Information Study Quality: Excellent Indications R^O embolic source Echo Enhancing Agent Indication: Rule out Shunt Agent(s) / Amount(s) Used: Agitated Saline 7 cc Procedure After obtaining informed consent, patient underwent transesophageal echo in the [employer]. Type of Sedation : Conscious Sedation Sedation was administered by Socorro Nicole RN. Sedation was achieved intravenously with: Versed (1.5 mg) Fentanyl (75 mcg) Transesophageal probe was inserted and advanced into esophagus without difficulty by Buck Dale MD. Echo enhancement indication: R/O Septal defect. Echo enhancement agent administered: Agitated Saline The VINICIO was performed without complications. Throughout the procedure, the blood pressure, pulse oximetry, cardiac rhythm, and rate were monitored. [facility] [address] [place] [address] TRANSESOPHAGEAL ECHOCARDIOGRAM Name: DEBBI SOL Room #: 350-P ADM IN M.R.#: [id number] Admission: 03/16/19 Attend Phys: Chilango Eckert MD Discharge: Date of : 59 Report #: [id number] The patient tolerated the procedure without adverse effects. Recovery from conscious sedation was uneventful and vital signs were stable. Left Ventricle The left ventricle is normal size. There is global hypokinesis of the left ventricle. There is normal left ventricular wall thickness. Left ventricular ejection fraction is severely decreased. LVEF 15-20%. Right Ventricle Right ventricle is at the upper limits of normal. Right ventricle is hypokinetic. Atria Left atrium is dilated. No thrombus is visualized in the left atrium or appendage. No shunting by contrast bubble injection Right atrium is dilated. Aortic Valve The aortic valve is normal in structure. No aortic regurgitation is present. There is no aortic valvular stenosis. Mitral Valve The mitral valve is normal in structure. Moderate to severe mitral regurgitation No evidence of mitral valve stenosis. Tricuspid Valve The tricuspid valve is normal in structure. Mild tricuspid regurgitation. Pulmonic Valve The pulmonary valve is normal in structure. There is no pulmonic valvular regurgitation. Great Vessels The aortic root is normal in size. IVC is normal in size and collapses >50% with inspiration. Pericardium There is no pericardial effusion. Critical Notification Critical Value: Yes Physician Notified [facility] [place] [address] [place] [address] TRANSESOPHAGEAL ECHOCARDIOGRAM Name: DEBBI SOL Room #: 350-P ADM IN M.R.#: [id number] Admission: 03/16/19 Attend Phys: Chilango Eckert MD Discharge: Date of : 59 Report #: [id number] <Conclusion> Left ventricular ejection fraction is severely decreased. There is global hypokinesis of the left ventricle. LVEF 15-20%. Both atria are dilated. No thrombus is visualized in the left atrium or appendage. No shunting by contrast bubble injection The aortic valve is normal in structure. No aortic regurgitation or stenosis. The mitral valve is normal in structure. Moderate to severe mitral regurgitation There is no pericardial effusion. No cardiac source of embolus identified. <ELECTRONICALLY SIGNED> By: Buck Dale MD, FACC 03/31/19944 4 4 Buck Dale MD, FACC /INF
[2019-03-31 11:36] LABS: INR 1.2
[2019-03-31 11:47] VITALS: BP 124/92
[2019-03-31 15:07] VITALS: BP 112/86
--- NOTE | 2019-03-31 16:17 | NUR ---
SW reviewed chart and spoke with nursing and attending physician. Pt has CONRAD drains in place. TPN to be stopped today. Pt had VINICIO earlier today. Pt is slowly progressing towards goals for discharge. Pt has applied for Medicaid. Hallie DESOUZA is following to provide HH visits at time of discharge. SW is following to assist as needed with discharge planning.
[2019-03-31 19:26] VITALS: BP 112/90
--- NOTE | 2019-03-31 20:57 | NUR ---
PATIENT ALERT AND ORIENTED AND PERIODS OF SLEEP THOUGHOUT THE DAY. HEIDE ON COT THIS AM AND LEFT FOR WORK AT [employer] ABOUT 0945. SEVERAL FAMILY MEMBERS EITHER AT BEDSIDE OF CALLED TO ASK PATIENTS STATUS. DR. RIOS SPOKE WITH PATIENT SISTER CATALINA BRUNO REGARDING PATIENT MEDICAL STATUS. CONTINUE WITH POC.
[2019-04-01 03:17] VITALS: BP 103/73
--- NOTE | 2019-04-01 03:18 | NUR ---
CONTINUES ON TPN, WEIGHT DOWN TO 96.3 POUNDS THIS MORNING. HE REQUESTED THE STRONG STUFF THIS MORNING FOR HIS PAIN CONTROL. NO CONCERNS VOICED. NO FAMILY IN TO VISIT CAN. HE IS CALM AND RELAXED WHEN PAIN UNDER CONTROL.
[2019-04-01 07:13] LABS: CALCIUM 8.1 mg/dL (8.5-10.1); CREATININE 1.2 mg/dL (0.7-1.3); POTASSIUM 4.2 mmol/L (3.5-5.1)
[2019-04-01 07:29] VITALS: BP 110/77
--- NOTE | 2019-04-01 11:07 | NUR ---
OSTOMY CARE POUCH EDGES LOOSE, NEW POUCH ELI 2 PIECE SYSTEM HIGH OUTPUT APPLIED AND CONNECTED TO DEP DRAINAGE, STOMA RED VIABLE BUDDED, PERISTOMAL SKIN INTACT, ADAPT RING APPLIED UNDER WAFER, LARGE AMT LIQ GREENISH BILISH EFFLUENT PRESENT, ALERT AND COOPERATIVE, WANTING TO GO HOME, REASSURANCE GIVEN, RECEPTIVE TO EDUCATION, SUPPLIES AT BS, WILL CONT TO FOLLOW RECOMMENDATIONS 2 PIECE ELI HIGH OUTPUT POUCH LONG STOOL SO LIQ, SUPPLIES AT BS, STRATEGIC MARKETING SPECIALIST AWARE
--- NOTE | 2019-04-01 14:30 | NUR ---
RAMILA reviewed chart and spoke with nursing and attending physician. Received consult to assist with medications and supplies at time of discharge. Pt is progressing towards goals for discharge. Pt's diet is being advanced. RAMILA met with pt at bedside to provide update. RAMILA explained that Hallie is able to provide [facility] RN visits. RAMILA offered to call pt's family to update. Pt declines and states he will tell them when they come to visit this evening. Psych consult ordered today. community planner to update liaison. RAMILA is following to assist as needed with discharge planning.
[2019-04-01 16:06] VITALS: BP 94/64
--- NOTE | 2019-04-01 17:46 | NUR ---
PATIENT A/O X2. IRRATABLE AND IMPULSIVE. GETTING OUT OF BED WANTS GO HOME. POOR APPATITE. PAIN MEDS GIVEN. 1200ML OUTPUT FROM ILEOSTOMY. SLOWLY TOWARDS POC GOALS.
[2019-04-01 19:11] VITALS: BP 91/63
--- NOTE | 2019-04-02 01:55 | NUR ---
PATIENT ARRIVED PER BED FROM 350 3W. IS ALERT X 3. SKIN WARM AND DRY. RESP EVEN AND UNLABORED. SHETH IN TACT FROM ILEOSTOMY WITH DARK GREENISH LIQ STOOL RETURN INCONT OF BLADDER ON ARRIVAL. DRESSING CHANGED AT CONRAD SITES DRAINES. PAIN MEDICATION GIVEN FOR ABDOMEN PAIN. PATIENT VERY SKINNY AND FRAIL. REMAINS CALM AT PRESENT. TAKES THIN LIQUID WELL. IV SITE HAS A RIGHT UPPER ARM PICC. REPOSITIONS SELF IN BED. ABDOMEN HAS + BS. NO EDEMA NOTED TO LOWER EXTREMITIES. RESTING. HAS SOME CONFUSION NOTED AT TIMES. CONRAD DRAINS HAVE VERY LITTLE DRAINAGE NOTED. WILL MONITOR FOR CHANGES. VS STABLE.
[2019-04-02 03:17] VITALS: BP 98/70
[2019-04-02 06:25] LABS: HEMOGLOBIN 9.9 gm/dL (14.0-18.0)
[2019-04-02 06:26] LABS: HEMATOCRIT 32.3 % (42.0-52.0); MCH 22.3 pg (26.0-34.0); MCHC 30.7 g/dL (28.0-37.0); MCV 72.8 fL (80.0-100.0); RBC 4.43 mil/uL (4.50-6.00); RDW 36.1 % (10.5-14.5); WBC 14.8 thou/uL (4.0-11.0)
[2019-04-02 06:58] LABS: CALCIUM 8.3 mg/dL (8.5-10.1); CREATININE 1.1 mg/dL (0.7-1.3); POTASSIUM 4.8 mmol/L (3.5-5.1)
--- NOTE | 2019-04-02 07:13 | NUR ---
Call critical report to dr jass kelley 2 times awaiting call back.
[2019-04-02 07:41] VITALS: BP 94/66
--- NOTE | 2019-04-02 09:57 | NUR ---
OSTOMY CARE still large amt liq greenish bilish effluent, pouch intact, no leakage, shown how to use high output pouch, able to empty thru spiget, informed pt once stool gets thicker will need to switch to pouch w/ velcro closing, verbal understanding, supplies at bs, will need assist w/ changing appliance at home. case management getting home health dc orders
--- NOTE | 2019-04-02 12:41 | EKG ---
[facility] [place] [address] ELECTROCARDIOGRAM REPORT Name: DEBBI SOL Room #: 442-P ADM IN M.R.#: [id number] Admission: 03/16/19 Attend Phys: Chilango Eckert MD Discharge: Date of : 59 Report #: [id number] THIS REPORT FOR: cc: [facility] - Clinic physician unknown [facility] - [facility] physician unknown Buck Dale MD [facility] ~ THIS REPORT FOR: //name// [facility] Test Date: 2019-03-21 Test Time: 23:22:50 Pat Name: DEBBI SOL Department: Room: 350 P Gender: M Hydrotherapist: jennifer jean : 1955 Requested By: Chao Blankenship Order Number: [id number] MD: Buck Dale Measurements Intervals [place] Rate: 131 P: 72 DE: 109 QRS: 49 QRSD: 69 T: 103 QT: 284 QTc: 420 Interpretive Statements Sinus tachycardia Nonspecific ST and T wave abnormality Baseline wander in lead(s) V6 No previous ECG available for comparison Electronically Signed On 03-22-2019 9:46:24 CONTRACT MANAGER by Buck Dale [email or web address] <ELECTRONICALLY SIGNED> By: Buck Dale MD, FACC 03/22/19 0946 2322 21 Buck Dale MD, [facility] /EPI
--- NOTE | 2019-04-02 12:43 | EKG ---
[facility] [place] [address] ELECTROCARDIOGRAM REPORT Name: DEBBI SOL Room #: 442-P ADM IN M.R.#: [id number] Admission: 03/16/19 Attend Phys: Chilango Eckert MD Discharge: Date of : 59 Report #: [id number] THIS REPORT FOR: cc: [facility] - Clinic physician unknown [facility] - [facility] physician unknown Buck Dale MD [facility] ~ THIS REPORT FOR: //name// [facility] Test Date: 2019-04-01 Test Time: 08:38:07 Pat Name: DEBBI SOL Department: Room: 350 P Gender: M Gluer: Jorge CASTILLO : 1955 Requested By: Buck Dale Order Number: [id number] MD: Buck Dale Measurements Intervals [place] Rate: 110 P: 82 OK: 114 QRS: 52 QRSD: 67 T: 241 QT: 375 QTc: 508 Interpretive Statements Sinus tachycardia Biatrial enlargement Abnormal T, diffuse leads Prolonged QT interval Compared to ECG 03/26/2019 06:58:03 premature ventricular complexes are no longer present Electronically Signed On 04-01-2019 9:21:56 DUST MILL OPERATOR by Buck Dale [email or web address] <ELECTRONICALLY SIGNED> By: Buck Dale MD, [facility] 04/01/1921 7 7 Buck Dale MD, [facility] /EPI
[2019-04-02 17:11] VITALS: BP 91/65
[2019-04-02 19:11] VITALS: BP 91/70
--- NOTE | 2019-04-02 19:50 | NUR ---
PT A&OX3, CONFUSED AT TIMES. FARHAN DOUBLE LUMEN PICC INTACT. ILEOSTOMY NOTED TO R SIDE. MIDLINE INCISION WITH ROSIBEL.C/D/I. CONRAD DRAINS TO L SIDE OF ABD WITH MIN SEROUSANG DRAINAGE. CALL LIGHT W/I REACH. BED ALARM ON.
--- NOTE | 2019-04-03 01:43 | NUR ---
ASSESSMENT COMPLETED.PT COMPLAINED OF PAIN ON HIS ABD,MANAGED WITH MED.DRSG ON HIS ABD C/D/I.ILEOSTOMY WITH GREENISH OUTPUT.2 CONRAD DRAINS ON HIS L SIDE WITH MIN SEROUSANGUINEOUS OUTPUT LESS THAN 10CC.PT RESTING ON HIS BED AT THIS TIME.FALL PRECAUTIONS IN PLACE,CALL LIGHT WITHIN REACH.
[2019-04-03 04:22] VITALS: BP 96/71
[2019-04-03 07:33] LABS: CALCIUM 8.8 mg/dL (8.5-10.1); CREATININE 1.5 mg/dL (0.7-1.3)
[2019-04-03 08:22] VITALS: BP 96/75
--- NOTE | 2019-04-03 11:21 | EKG ---
[facility] [place] [address] ELECTROCARDIOGRAM REPORT Name: DEBBI SOL Room #: 442-P ADM IN M.R.#: [id number] Admission: 03/16/19 Attend Phys: Chilango Eckert MD Discharge: Date of : 59 Report #: [id number] THIS REPORT FOR: cc: [facility] - Clinic physician unknown [facility] - [facility] physician unknown Gold Sanchez MD ~ THIS REPORT FOR: //name// [facility] Test Date: 2019-03-26 Test Time: 06:58:03 Pat Name: DEBBI SOL Department: Room: 350 P Gender: M Braille Coder: Edith TRUONG : 1955 Requested By: Shiv Sanchez Order Number: [id number] MD: Gold Sanchez Measurements Intervals [place] Rate: 135 P: 93 TN: 256 QRS: 31 QRSD: 91 T: 212 QT: 331 QTc: 497 Interpretive Statements Sinus tachycardia Multiform ventricular premature complexes Probable left atrial enlargement Probable anterior infarct, age indeterminate Lateral leads are also involved Compared to ECG 03/21/2019 23:22:50 Electronically Signed On 03-26-2019 8:42:57 UNEMPLOYMENT EXAMINER by Gold Sanchez [email or web address] <ELECTRONICALLY SIGNED> By: Gold Sanchez MD 03/26/19 0842 0658 0658 Gold Sanchez MD /EPI
--- NOTE | 2019-04-03 15:57 | NUR ---
PT CARE ASSUMED AT 0700. A&Ox2-3. PT IS STILL HAVING LARGE OUTPUT THROUGH HIS ILEOSTOMY WITH BP BEING 99/76 WHICH WAS TREATED WITH FLUIDS. IMMODIUM WAS ORDERED TO THICKEN THE STOOLS. PT IS ON A ELECTROLYTE PROTOCOL. PT IS TO LEARN HOW TO TAKE CARE OF HIS ILEOSTOMY BAG. LOW AIRLOSS PUMP HAS BEEN ADDED TO THE BED DUE TO PT STATING THAT HIS HEELS ARE HURTING. ILEOSTOMY NEEDS TO BE ASSESSED EVERY 4 HOURS TO ENSURE THAT IT DOESNT BURST DUE TO HIGH OUTPUT. PT IS ON Q6 ACCUCHECKS PER PROTOCOL. PICC LINE FLUSHES WELL WITH BLOOD DRAW BACK. NO REDNESS OR EDEMA. FALL PROTOCOL IN PLACE WITH CALL LIGHT IN PLACE. WILL CONTINUE TO MONITOR. UPDATE GIVEN TO DAUGHTER OVER THE PHONE.
[2019-04-03 17:23] VITALS: BP 96/75
[2019-04-03 19:02] VITALS: BP 101/70
--- NOTE | 2019-04-04 03:10 | NUR ---
PT WAS LETHARGIC BUT EASILY AROUSABLE AT START OF SHIFT.PT WITH POOR APPETITE,ATE LESS THAN 40% OF HIS DINNER.SPOUSE AT BEDSIDE VISITING.PT'S OSTOMY WITH ADEQUATE GREEN SOFT FORMED STOOL.MIN DRAINAGE NOTED ON THE TWO CONRAD DRAINS.PT C/O ABD PAIN,MANAGED WITH MED.MIDLINE INCISION C/D/I.PT RESTING ON HIS BED AT THIS TIME.CALL PRECAUTIONS IN PLACE,CALL LIGHT WITHIN REACH.
[2019-04-04 04:19] VITALS: BP 112/86
[2019-04-04 05:39] LABS: CALCIUM 8.3 mg/dL (8.5-10.1); CREATININE 1.2 mg/dL (0.7-1.3); POTASSIUM 4.7 mmol/L (3.5-5.1)
--- NOTE | 2019-04-04 08:13 | HC ---
[facility] [place] [address] CONSULTATION Name: DEBBI SOL Room #: 442-P ADM IN M.R.#: [id number] Admission: 03/16/19 Attend Phys: Chilango Eckert MD Discharge: Date of : 59 Report #: [id number] THIS REPORT FOR: cc: [facility] - Clinic physician unknown [facility] - Clinic physician unknown Autumn John MD ~ THIS REPORT FOR: //name// CC: Sin Guzman [facility] unknown Chilango Eckert REASON FOR CONSULTATION: Elevated creatinine. REASON FOR PRESENTATION: Abdominal fullness and pain. HISTORY OF PRESENT ILLNESS: A 64-year-old who presented with the above-mentioned complaint and reported that he had also altered bowel habits with weight loss. He was admitted on the 03/16/2019. The patient was found to have significant ileocecal mass. The patient's symptoms have been progressing for the last couple of weeks. He did report to significant weakness and loss of appetite with no hematochezia or melena. The patient's last colonoscopy was 7 years ago. His hemoglobin on presentation was 6.8 with an MCV of 59.5. He was found to have high-grade partial small-bowel obstruction. Initial CT of the abdomen revealed what seems to be a large circumferential mass involving the terminal ileum and the cecum. There were no issues with his kidneys on the CT. The patient did have a successful procedure with the resection of the above-mentioned tumor. Post-resection, patient had a repeat CT, which revealed extensive bilateral kidney changes consistent with wedge-shaped areas of hypoperfusion with extensive renal infarct. The patient's creatinine on presentation was 1.7 and has improved to 0.9; however, started to go up again to 1.6 with associated hyperkalemia. The patient did have +1 protein, but no red blood cells. His LDH was mildly elevated. I was consulted to manage his ongoing renal issues. PAST MEDICAL HISTORY: Really none of chronic medical issues. MEDICATIONS: Meloxicam and hydrocodone. SOCIAL HISTORY: Denies drug or alcohol abuse. ALLERGIES: None. REVIEW OF SYSTEMS: GENERAL: Significant for weakness, lethargic, weight loss. CARDIOVASCULAR: No chest pain or shortness of breath. PULMONARY: No cough or hemoptysis. [address] [address] CONSULTATION Name: DEBBI SOL Room #: 442-P ADM IN M.R.#: [id number] Admission: 03/16/19 Attend Phys: Chilango Eckert MD Discharge: Date of : 59 Report #: [id number] GASTROINTESTINAL: As per the history of present illness. GENITOURINARY: No frequency, no urgency. MUSCULOSKELETAL: Occasional myalgias. PHYSICAL EXAMINATION: GENERAL: Thin and cachectic male patient. VITAL SIGNS: Temperature 37.2, blood pressure 111/81. HEAD AND NECK: Emaciated. CHEST: Decreased air entry. CARDIOVASCULAR: Regular with no rub. ABDOMEN: Right-sided colostomy bag present. LOWER EXTREMITIES: No edema. LABORATORY DATA: Reviewed. Hemoglobin is 9.1 with a low MCV at 65 and high platelet. Potassium is 5.1. Sodium is 137, BUN is 23, creatinine is 1.6. IMPRESSION AND PLAN: 1. Acute kidney injury. 2. Renal infarct. 3. Hyperkalemia. Discussed with Dr. Sanchez. It looks like that the ureter was encased within the mass; however, this was dissected successfully. Plan is for the patient to go and have paracentesis of his abdominal fluid tomorrow. Hence, heparin was discontinued. From the renal perspective, it does look like that the patient's creatinine is going up along with hyperkalemia and hyperphosphatemia. I reviewed his CT images and I will proceed with a renal scan. Definitely, the patient is at risk of having hypercoagulable status given his cancerous condition and will need long-term anticoagulation down the road. We will also need to rule out other sources including thromboembolic phenomena. <ELECTRONICALLY SIGNED> By: Autumn John MD 04/04/19 0813 0750 [id number] Autumn John MD /nt
[2019-04-04 08:24] VITALS: BP 120/79
--- NOTE | 2019-04-04 10:04 | NUR ---
OSTOMY CARE pouch intact, some mushy bilish green stool present, changed pouch to velcro closing from high output as stool thicker, daughter at bs and very receptive to learning ostomy care, pt drowsy but alert and cooperative, encourage pt to participate in ostomy care and empty appliance when 1/3 - 1/2 full and to check frequently, stoma loop ileostomy red/viable budded, peristomal skin intact, midline abd suture line intact w/ krista w/ mesh covering, supplies at bs, will cont to follow RECOMMENDATIONS cont rt ostomy care, adapt ring under wafer, change q 3-5 days, if stool becomes more liq again may need to switch back to high output w/ spiget, supplies at bs staffing program manager informed
[2019-04-04] MEDS ORDERED: ELIQUIS5 MG PO (11:35)
[2019-04-04] MEDS ORDERED: AUGMENTIN 875-1 EACH PO (11:35)
[2019-04-04] MEDS ORDERED: METRONIDAZOLE500 M4 PO (11:35)
[2019-04-04] MEDS ORDERED: CARVEDILOL3.125 MG PO (11:36)
[2019-04-04] MEDS ORDERED: LISINOPRIL2.5 MG PO (11:36)
[2019-04-04] MEDS ORDERED: LOPERAMIDE 2 MG2 M1 PO (11:37)
[2019-04-04] MEDS ORDERED: FIBERCON CHEWA625 MG PO (11:37)
[2019-04-04] MEDS ORDERED: OXYCODONE HCL10 MG PO (11:37)
[2019-04-04 12:43] VITALS: BP 120/79
[2019-04-04 15:56] VITALS: BP 120/79
--- NOTE | 2019-04-04 16:02 | NUR ---
PT IS TO DISCHARGE HOME THIS DAY. PT IS TO HAVE A FEW MARRY VISITS WITH [facility]. ORDERES HAVE BEEN FAXED. CM VOUCHERED PT'S MEDS IN THE AMOUNT OF $104.26. OSTOMY NURSE ARRANGED PT'S HOME OSTOMEY SUPPLIES. PT HAS TRNSPORT HOME. NO OTHER CM INTERVENTION INDICATED. CASE CLOSED.
[2019-04-04 16:09] VITALS: BP 117/77
--- NOTE | 2019-04-04 16:11 | NUR ---
[facility]DERS/SUMMARY FOR MARRY VISITS AND RECEIVED CONFIRMATION AND THEY WILL NOTIFY PT TIME OF VISITS.
[2019-04-04 18:29] VITALS: BP 117/77
== END 2019-04-04 19:30 | disposition home health service (06) | DRG 329 ==
LOC: ER 10:03 → EROBS 12:38 → 3W 12:38 → 4S 04-02 01:24
PROVIDERS: Emergency Medicine; Hospitalist; Internal Medicine; Internal Medicine Gastroenterology; Internal Medicine Hematology & Oncology; Nurse Practitioner Family; Radiology Vascular & Interventional Radiology; Student in an Organized Health Care Education/Training Program; Surgery; ADMIT Surgery
PROC: 30233N1 Transfusion of Nonautologous Red Blood Cells into Peripheral Vein, Percutaneous Approach (ICD-10-PCS; principal; 2019-03-16)
PROC: 0DTF0ZZ Resection of Right Large Intestine, Open Approach (ICD-10-PCS; 2019-03-17)
PROC: 0D1B0Z4 Bypass Ileum to Cutaneous, Open Approach (ICD-10-PCS; 2019-03-17)
PROC: 0DQB0ZZ Repair Ileum, Open Approach (ICD-10-PCS; 2019-03-24)
PROC: B24BZZ4 Ultrasonography of Heart with Aorta, Transesophageal (ICD-10-PCS; 2019-03-31)
DX: C18.0 Malignant neoplasm of cecum (principal); E43 Unspecified severe protein-calorie malnutrition; K65.8 Other peritonitis; I50.23 Acute on chronic systolic (congestive) heart failure; N17.9 Acute kidney failure, unspecified; N28.0 Ischemia and infarction of kidney; R18.8 Other ascites; Z68.1 Body mass index [BMI] 19.9 or less, adult; K56.600 Partial intestinal obstruction, unspecified as to cause; D62 Acute posthemorrhagic anemia; K56.7 Ileus, unspecified; K91.89 Other postprocedural complications and disorders of digestive system; D68.59 Other primary thrombophilia; E87.0 Hyperosmolality and hypernatremia; E87.5 Hyperkalemia; E83.39 Other disorders of phosphorus metabolism; F17.210 Nicotine dependence, cigarettes, uncomplicated; K21.9 Gastro-esophageal reflux disease without esophagitis; E83.42 Hypomagnesemia; D47.3 Essential (hemorrhagic) thrombocythemia; I11.0 Hypertensive heart disease with heart failure; F32.9 Major depressive disorder, single episode, unspecified; F43.21 Adjustment disorder with depressed mood; Y83.6 Removal of other organ (partial) (total) as the cause of abnormal reaction of the patient, or of later complication, without mention of misadventure at the time of the procedure; Y92.230 Patient room in hospital as the place of occurrence of the external cause; E87.8 Other disorders of electrolyte and fluid balance, not elsewhere classified; Z79.899 Other long term (current) drug therapy; Z71.6 Tobacco abuse counseling; Z23 Encounter for immunization
CPT/HCPCS: 10080; 10195; 10879; 27000; 50010; 50093; 50101; 50386; 50455; 50953; 51412; 51708; 51712; 56524; 56525; 56528; 56530; 57092; 57103; 62110; 62900; 70005

== ENCOUNTER 2019-04-06 02:39 | Inpatient (IN) | payer OTHER ==
[~2019-04-06] VITALS: Ht 175.3 cm; Wt 38.6 kg
[~2019-04-06 02:39] MED LIST changes: +ALEVE220 M1 PO; +AUGMENTIN 875-1 EACH PO; +CARVEDILOL3.125 MG PO; +ELIQUIS5 MG PO; +FIBERCON CHEWA625 MG PO; +LISINOPRIL2.5 MG PO; +LOPERAMIDE 2 MG2 M1 PO; +METRONIDAZOLE500 M4 PO; +OXYCODONE HCL10 MG PO
[2019-04-06 02:40] VITALS: BP 100/73
[2019-04-06 04:00] LABS: WBC 17.7 thou/uL (4.0-11.0)
[2019-04-06 04:03] LABS: BASOPHILS 0.5 % (0.0-2.0); CALCIUM 9.2 mg/dL (8.5-10.1); CREATININE 2.1 mg/dL (0.7-1.3); EOSINOPHILS 0.4 % (0.0-3.0); HEMOGLOBIN 12.3 gm/dL (14.0-18.0); MCH 22.7 pg (26.0-34.0); MCHC 30.1 g/dL (28.0-37.0); MCV 75.4 fL (80.0-100.0); MONOCYTES 5.1 % (1.0-8.0); POTASSIUM 5.7 mmol/L (3.5-5.1); RBC 5.44 mil/uL (4.50-6.00); RDW 33.8 % (10.5-14.5)
[2019-04-06 04:18] LABS: ALBUMIN 2.4 g/dL (3.4-5.0); DIRECT BILIRUBIN 0.1 mg/dL (<0.1-0.2); TOTAL BILIRUBIN 0.4 mg/dL (<0.1-1.0); TOTAL PROTEIN 8.6 g/dL (6.4-8.2)
[2019-04-06 04:19] LABS: PLATELET COUNT 1091 thou/uL (150-400)
[2019-04-06 06:06] LABS: PLATELET ESTIMATE MARKEDLY INCREASED
[2019-04-06 06:07] LABS: ANISOCYTOSIS 2+; HYPOCHROMASIA 1+; LARGE PLATELETS FEW; SCHISTOCYTES FEW; TARGET CELLS 1+
[2019-04-06 07:47] VITALS: BP 104/69
[2019-04-06 08:03] VITALS: BP 102/78
--- NOTE | 2019-04-06 08:54 | EKG ---
[facility] [place] [address] ELECTROCARDIOGRAM REPORT Name: DEBBI SOL Dolores Room #: 361- ADM IN M.R.#: [id number] Admission: 04/06/19 Attend Phys: Joseph Polanco MD Discharge: Date of : 59 Report #: [id number] THIS REPORT FOR: cc: [facility] - Clinic physician unknown [facility] - Clinic physician unknown Gold Sanchez MD ~ THIS REPORT FOR: //name// [facility] ED Test Date: 2019-04-06 Test Time: 05:12:21 Pat Name: DEBBI SOL Department: Room: [facility] Gender: M Programmer Developer: [email or web address] : 1955 Requested By: Naya Galicia Order Number: [id number] MD: Gold Sanchez Measurements Intervals [place] Rate: 97 P: 86 IN: 113 QRS: 73 QRSD: 77 T: 264 QT: 406 QTc: 516 Interpretive Statements Sinus rhythm Borderline short IN interval Biatrial enlargement Abnormal T, probable ischemia, widespread Compared to ECG 04/01/2019 08:38:07 Possible ischemia now present Sinus tachycardia no longer present T-wave abnormality still present Electronically Signed On 04-06-2019 8:54:02 BUFFET WAITER/WAITRESS by Gold Sanchez [email or web address] <ELECTRONICALLY SIGNED> By: Gold Sanchez MD 04/06/19 0854 1 1 Gold Sanchez MD /EPI
[2019-04-06] MEDS ORDERED: MAPAP500 MG PO (09:31)
[2019-04-06 16:07] VITALS: BP 111/79
[2019-04-06 21:51] VITALS: BP 137/82
[2019-04-07 03:23] VITALS: BP 120/63
--- NOTE | 2019-04-07 05:23 | NUR ---
PATIENT IS PROGRESSING SLOWLY IN HIS CARE PLAN. VITAL SIGNS STABLE WITH PATIENT HAVING NO COMPLAINTS OF NAUSEA. PATIENT DID COMPLAIN OF ABDOMINAL PAIN MULTIPLE TIMES AND WAS TREATED APPROPRIATELY. PATIENT HAS BEEN MOSTLY ALERT AND ORIENTED THROUGHOUT SHIFT AND HAS BEEN ABLE TO CALL FOR NEEDS. CONTINUE PLAN OF CARE.
[2019-04-07 07:51] VITALS: BP 112/80
--- NOTE | 2019-04-07 08:12 | HC ---
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 HISTORY OF PRESENT ILLNESS: The patient is a 64-year-old gentleman who was recently in the hospital since about 03/16/2019. He had had altered bowel habits and weight loss. He was found to have an ileocecal mass that had been a T3 N0 mismatch repair protein ____ cancer that will most likely not need chemotherapy. He also at that time was found to have renal infarct of unknown etiology, has been on anticoagulation, so this might be hypercoagulable in nature. Though, hope hypercoag panel will probably be done at a later date. The patient is discharged on Sunday. His eating and hydration ____ had been marginal. He has been fairly desirous to go home. He reports at home he does not have any fevers, chills, felt like his appetite had been poor, but not really vomiting if I understand it right. No dysuria. No blood in his urine or stool. He had not done well and I think maybe trouble from his pain pills because of economics and came back to the ER for evaluation. Here it is notable that his lipase is elevated at 1940. His BUN is 46, creatinine 2.1. Lactic acid on admission had been 2.7 and it is now 1.4, hemoglobin 12.2, platelets have been 1091. Note that during this recent admission, he appeared to have reactive thrombocytosis. 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 Unfortunately, he had postop anastomotic leak and was being treated for that. He also has a history of the renal infarcts with drawing of some labs including a Factor V activity is 104, antithrombin 371, protein-C 63, protein-S 35. Anticardiolipin IgM and IgG were less than 9 each. Note that there was not factor V Leiden. Also, note that on admission, his APTT back at about 03/26/2019 had been slightly elevated at 45, so there is a question about possible lupus anticoagulant. He also has a history of [facility] [address] [place] [address] CONSULTATION Name: DEBBI SOL Room #: 361-P ADM IN M.R.#: [id number] Admission: 04/06/19 Attend Phys: Joseph Polanco MD Discharge: Date of : 59 Report #: [id number] probable mention thrombocytopenia. Note that on admit back in February, his platelets have been 846. With additional therapy, they had dropped down to the 400 range on 03/25/2019 then more recently they had gone back up. FAMILY HISTORY: Mother and father without cancer. Four sisters, three brothers without cancer. Three daughters, two sons, one of his daughters has asthma. SOCIAL HISTORY: Quit smoking the day he was admitted in early 2019. 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 I am not sure, maybe pending. Also, has a history of iron deficiency anemia with microcytosis, though he did receive 5 bags of Venofer back in late February or early 03/2019. PHYSICAL EXAMINATION: VITAL SIGNS: Back on 03/16/2019, height was 5 feet 9, 175.3 cm. Weight more recently on the was 96 pounds, which is down from about 03/02/2019 back in early February and also in kilos that is 43.5 kilograms. Blood pressure is 106/73, respirations 19, O2 sat 100%, pulse 100, afebrile at 96.4. MOOD: He is alert and pleasant, though somewhat quiet. NEUROLOGIC: Speech and thought pattern appear to be normal. Significant other is present in the room in the ER. Mouth is slightly dry. LYMPHATICS: No enlarged lymph nodes in the supraclavicular, cervical or axillary region. ABDOMEN: Has an ostomy in place. It is thought to be temporary. EXTREMITIES: Without clubbing or cyanosis. He is quite emaciated. ASSESSMENT AND PLAN: 1. 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 The patient is still recovering. 2. History of renal infarcts, unclear etiology with some hypercoag done, but others will need to be repeated at some time in the future including Factor V Leiden, prothrombin gene mutation, beta 2 glycoproteins, DRVVT and hexagonal phase phospholipid. This would best be done when the patient is considering being off of his anticoagulant. For now, would suggest continuing same. 3. Thrombocytosis, most likely reactive in nature related to infection. We will check a JAK2 mutation as this could have been MPL related. 4. Abdominal pain may be related to lipase elevation. We will defer to others whether this is pancreatitis. 5. Dehydration, IV fluids. 6. Renal insufficiency, worse than usual, will probably improve with fluids. [facility] [address] [place] [address] CONSULTATION Name: DEBBI SOL Room #: 361-P ADM IN M.R.#: [id number] Admission: 04/06/19 Attend Phys: Joseph Polanco MD Discharge: Date of : 59 Report #: [id number] 7. Deconditioning, still a problem. 8. Protein-calorie malnutrition. Defer to others. <ELECTRONICALLY SIGNED> By: Debbi Champagne MD 04/07/19 0812 0738 1007 Debbi Champagne MD /nt
[2019-04-07 10:03] LABS: HEMATOCRIT 32.2 % (42.0-52.0); MCH 22.5 pg (26.0-34.0); MCV 77.7 fL (80.0-100.0); RBC 4.15 mil/uL (4.50-6.00); RDW 33.2 % (10.5-14.5); WBC 19.7 thou/uL (4.0-11.0)
[2019-04-07 10:09] LABS: HEMOGLOBIN 9.3 gm/dL (14.0-18.0)
[2019-04-07 10:20] LABS: ALBUMIN 1.8 g/dL (3.4-5.0); CALCIUM 8.6 mg/dL (8.5-10.1); CREATININE 2.1 mg/dL (0.7-1.3); POTASSIUM 4.9 mmol/L (3.5-5.1)
[2019-04-07 15:41] VITALS: BP 113/81
--- NOTE | 2019-04-07 16:39 | NUR ---
If ongoing bowel rest indicated and if TPN appropriate per surgery/GI, recommend starting standard TPN WITHOUT lipids at goal rate of 90 ml/hr. advanced slowly over 3 days. *Given presence of inflammation w/ pancreatitis, recommend avoiding lipids in first week of TPN as intralipids are soy based and more inflammatory prone. *If lipids are included in TPN, recommend lower goal rate of only 75 ml/hr.
--- NOTE | 2019-04-07 16:44 | NUR ---
INITIAL ASSESSMENT: Received consult due to services not coming to see pt over the weekend. Pt was discharged home on Sunday, 04/04. Pt was admitted from home yesterday due to pancreatitis. Pt is s/p colectomy ileostomy. Pt may need TPN. Pt has [place] Medicaid application pending. Per chart, [facility]. [facility] is providing [facility] visits. SW met with pt and family at bedside. Introduced role of SW. Pt is alert/orientated x 4. Pt lives at home with family. Pt's plan is to return home when medically stable. SW is following to assist as needed with discharge planning.
[2019-04-07 19:42] VITALS: BP 110/74
--- NOTE | 2019-04-07 19:47 | NUR ---
PATIENT NOW SLEEPING. HE DID COMPLAIN OF PAIN AT BEGINING OF SHIFT AND PRN PAIN ADMINISTERED. IT WAS EFFECTIVE. HE IS NOW ON CLEAR LIQUID DIET. WILL CONT WITH PLAN OF CARE.
[2019-04-08 02:19] LABS: URINE BILIRUBIN NEGATIVE (Negative); URINE BLOOD TRACE (Negative); URINE CLARITY SL CLOUDY; URINE COLOR YELLOW; URINE GLUCOSE-RANDOM* NEGATIVE (Negative); URINE KETONES TRACE (Negative); URINE LEUKOCYTES-REFLEX NEGATIVE (Negative); URINE NITRITE-REFLEX NEGATIVE (Negative); URINE PROTEIN (DIPSTICK) TRACE (Negative); URINE SPECIFIC GRAVITY 1.025 (1.005-1.035); URINE UROBILINOGEN 0.2 E.U./dl (0.2-1.0)
--- NOTE | 2019-04-08 02:25 | NUR ---
EARLY IN SHIFT NURSE RECEIVED CALL FROM PATIENTS DAUGHTER DA. SHE WAS NOT LISTED ON PATIENTS AUTHORIZED CONTACTS, DID NOT HAVE PATIENTS SECURITY CODE, AND WAS INTERESTED ON BEING BRIEFED ON PATIENTS STATUS AND DIAGNOSIS. NURSE INFORMED PATIENT OF HIPPA AND THAT HE COULD HAVE PATIENT CALL HER AND GIVE HER THE CODE IF HE PLEASED. SHORTLY AFTERWARD NURSE RECEIVED CALL FROM DAUGHTER AND SISTERS ALEXANDRIA AND CANDY WHO WERE ON CONFERENCE CALL. NURSE INFORMED THEM THAT THEY WOULD HAVE TO HAVE PATIENTS CODE OR PERMISSION FROM PATIENT BEFORE NURSE COULD GIVE PATIENTS INFORMATION. NURSE PUT THEM HOLD AND SPOKE TO PATIENT WHO IS FULLY ALERT AND ORIENTED. PATIENT STATED THAT "ALL THAT CAN WAIT FOR TOMORROW" WHEN TOLD PATIENTS DAUGHTER WAS ON WAY TO SLEEP IN PATIENTS ROOM WITH HIM HE STATED THAT HE "DID NOT WANT ANYONE TO VISIT" HIM OTHER THAN HIS FRIEND YUMIKO. NURSE INFORMED PATIENTS SISTER ALEXANDRIA THAT PATIENT DID NOT WANT COMPANY THIS EVENING AND THAT HE NEEDED TO REST TO WHICH SHE VOICED UNDERSTANDING AND SAID SHE WOULD CONTACT HER NIECE TO "CALL HER OFF". SIGN HUNG ON PATIENTS DOOR ASKING FOR VISITORS TO CHECK IN AT NURSES STATION.
[2019-04-08 04:29] VITALS: BP 108/72
[2019-04-08 05:37] LABS: HEMATOCRIT 25.5 % (42.0-52.0); HEMOGLOBIN 7.7 gm/dL (14.0-18.0); MCH 22.9 pg (26.0-34.0); MCV 76.2 fL (80.0-100.0); RBC 3.35 mil/uL (4.50-6.00); RDW 33.2 % (10.5-14.5); WBC 16.9 thou/uL (4.0-11.0)
[2019-04-08 06:30] LABS: ALBUMIN 1.7 g/dL (3.4-5.0); CALCIUM 8.4 mg/dL (8.5-10.1); CREATININE 1.5 mg/dL (0.7-1.3); MAGNESIUM 1.7 mg/dL (1.8-2.4); PHOSPHORUS 3.4 mg/dL (2.5-4.9)
[2019-04-08 06:34] LABS: POTASSIUM 3.8 mmol/L (3.5-5.1)
[2019-04-08 08:22] VITALS: BP 111/68
--- NOTE | 2019-04-08 09:09 | NUR ---
OSTOMY CARE pouch edges loose, stool bilish green loose, peristomal skin intact, daughter at bs, will to learn ostomy care, new pouch minoo 2 piece system applied, instructed to watch pouch and not let it get too full, also reviewed diet, low fiber, adeq po intake, smaller meals and more freq, receptive to education, encouraged participation in ostomy care, info and supplies at bs, will cont to follow recommendations; change pouch q 3-5 days and prn, have pt participate in ostomy care, staff technologist aware
[2019-04-08 10:24] LABS: HEMATOCRIT 25.9 % (42.0-52.0); HEMOGLOBIN 7.7 gm/dL (14.0-18.0); MCH 22.6 pg (26.0-34.0); MCHC 29.6 g/dL (28.0-37.0); MCV 76.4 fL (80.0-100.0); OBSERVED RETIC COUNT 2.16 % (0.6-2.6); RBC 3.39 mil/uL (4.50-6.00); RDW 32.4 % (10.5-14.5); WBC 15.7 thou/uL (4.0-11.0)
[2019-04-08 10:29] LABS: ALBUMIN 1.7 g/dL (3.4-5.0); DIRECT BILIRUBIN < 0.1 mg/dL (<0.1-0.2); SGOT 24 U/L (15-37); SGPT 12 U/L (30-65); TOTAL BILIRUBIN 0.2 mg/dL (<0.1-1.0); TOTAL PROTEIN 6.6 g/dL (6.4-8.2)
--- NOTE | 2019-04-08 14:43 | NUR ---
SW reviewed chart and spoke with nursing and attending physician. Pt is slowly progressing towards goals for discharge. Pt's diet is slowly being advanced. Pt's [place] Medicaid appears to be active. RAMILA updated [facility] liaison, who will meet with pt at bedside. Plan is for pt to discharge home with HH when medically stable. RAMILA is following to assist as needed with discharge planning.
[2019-04-08 16:33] LABS: HEMATOCRIT 25.1 % (42.0-52.0); HEMOGLOBIN 7.6 gm/dL (14.0-18.0); MCH 23.2 pg (26.0-34.0); MCHC 30.4 g/dL (28.0-37.0); MCV 76.5 fL (80.0-100.0); RBC 3.28 mil/uL (4.50-6.00); RDW 32.2 % (10.5-14.5)
[2019-04-08 16:50] VITALS: BP 117/70
--- NOTE | 2019-04-08 18:05 | NUR ---
ASSUMED PATIENT PATIENT CARE AT 0700. A/O X3. NOTED PATIENT SMOKING INSIDE ROOM. PAIN MEDS GIVEN. POOR APPETITE. ONLT TAKE A FEW BIT. 500ML DARK STOOL FROM LIEOSTOMY. NOT TOWARDS POC.
[2019-04-08 20:25] VITALS: BP 123/70
[2019-04-09 04:20] VITALS: BP 117/73
[2019-04-09 06:56] LABS: RBC 2.76 mil/uL (4.50-6.00)
[2019-04-09 06:57] LABS: HEMATOCRIT 21.5 % (42.0-52.0); MCH 23.2 pg (26.0-34.0); MCHC 29.8 g/dL (28.0-37.0); MCV 77.8 fL (80.0-100.0); RDW 31.5 % (10.5-14.5); WBC 14.4 thou/uL (4.0-11.0)
[2019-04-09 08:09] LABS: HEMOGLOBIN 6.4 gm/dL (14.0-18.0)
[2019-04-09 08:12] VITALS: BP 91/59
[2019-04-09 08:57] LABS: HEMATOCRIT 22.5 % (42.0-52.0); HEMOGLOBIN 6.6 gm/dL (14.0-18.0)
--- NOTE | 2019-04-09 09:12 | NUR ---
0715 received report from Sven Patient resting quietly at this time 0912 assessed this patient, patient in a very good mood cheerful sitting in bed watching TV. He is talking more today although his speech is still hard to understand I am able to make out more words then yesterday.
--- NOTE | 2019-04-09 09:50 | NUR ---
0720 received report from Sven patient resting in bed 0950 patient requested pain medication for abdominal pain. Hydrocodone given at this time. I did explain to the patient that d/t his bp we needed to be careful with his pain medications. Consent for blood transfusion was signed at this time vebal education was given in regards to transusion patient has had one in the past.
[2019-04-09 11:59] VITALS: BP 97/63
[2019-04-09 13:47] VITALS: BP 118/69; BP 96/41
--- NOTE | 2019-04-09 13:57 | NUR ---
Patients unit of blood started at this time Starting rate of 60mls/hrs. Lungs are clear diminshed to bases bilat. Patient is being monitored for the first 15mins.
[2019-04-09 15:52] VITALS: BP 109/71
--- NOTE | 2019-04-09 16:52 | NUR ---
RAMILA notified that pt has requested to have a hospital bed at time of discharge. SW to see if [place]-Medicaid will provide authorization for a hospital bed. Plan is for pt to discharge home with [facility] when medically stable. RAMILA is following to assist as needed with discharge planning.
[2019-04-09 17:02] LABS: HEMATOCRIT 26.1 % (42.0-52.0)
--- NOTE | 2019-04-09 18:01 | NUR ---
1600 patient finished up the 1 unit of prbc. Lungs remain clear but diminished at this time patient is afebrile.
[2019-04-09 20:05] VITALS: BP 129/55
[2019-04-10 04:30] VITALS: BP 109/51
[2019-04-10 07:46] VITALS: BP 92/61
--- NOTE | 2019-04-10 08:17 | NUR ---
REC adding nutrition support with feeding tube placement to help optimize nutrition status as pt severely malnourished. Despite being on regular diet, pt is only eating 5-20% of most meals and since Jaime admit, pt has lost 21# in < 1 mo for a SEVERE weight loss of 19.8%. Down to 85# per daily weight. While on clear liquids, pt was receiving Ensure Clear. RD upgraded oral supplements to most energy dense variety with Ensure Enlive TID which will add 1050 kcals, 60 g protein if pt will drink.
--- NOTE | 2019-04-10 08:42 | NUR ---
PT MAKING SLOW PROGRESS TOWARDS GOALS. X2 DOSES OF LORTAB GIVEN OVERNIGHT FOR ABDOMINAL PAIN. NO REPORTED NAUSEA. ILEOSTOMY OUTPUT 450ML, DARK GREEN. SEE CHARTING.
[2019-04-10 10:19] LABS: HEMATOCRIT 30.4 % (42.0-52.0); HEMOGLOBIN 9.3 gm/dL (14.0-18.0); MCH 23.9 pg (26.0-34.0); MCHC 30.7 g/dL (28.0-37.0); MCV 77.7 fL (80.0-100.0); RBC 3.91 mil/uL (4.50-6.00); RDW 29.5 % (10.5-14.5)
[2019-04-10 10:34] LABS: CALCIUM 8.2 mg/dL (8.5-10.1); POTASSIUM 4.3 mmol/L (3.5-5.1)
[2019-04-10 15:38] VITALS: BP 118/42
[2019-04-10 15:55] VITALS: BP 118/42
--- NOTE | 2019-04-10 16:34 | NUR ---
discharge orders completed. patient discharging to home with [facility]. discharge/home health orders faxed to [facility]. call placed to ernie to notify. ernie to facilitate patients hh needs.
--- NOTE | 2019-04-10 16:44 | NUR ---
DISCHARGE NOTE: RAMILA reviewed chart and spoke with nursing and attending physician. Pt is medically stable for discharge home today. Orders written for home health services. RAMILA met with pt at bedside to discuss discharge plan. Pt is aware that his Medicaid is now active and he should be able to fill his medications. Pt asked about getting a hospital bed. RAMILA explained that a hospital bed will need to be authorized by Medicaid, and that it may take several days to get the bed approved. Pt verbalized understanding. Pt will have transportation home later today. Contact info for HH placed in pt's discharge summary. RAMILA contacted Medicaid prior auth line for DME. Medicaid will need additional documentation in order to authorize hospital bed. RAMILA discussed with attending physician. Documentation to be obtained and faxed to [phone] when available. RAMILA updated pt's nurse. Pt to discharge home later today. SW to follow up with Medicaid tomorrow regarding hospital bed. [facility] can provide bed once authorization is obtained. RAMILA is following to assist as needed.
--- NOTE | 2019-04-10 18:36 | NUR ---
assumed patient care at 0700. alert. poor appetite. hgb 9.3 in am. pain meds given. dc education give to cintia villalobos. dc to home with HH.
== END 2019-04-10 20:52 | disposition home or self-care (01) | DRG 438 ==
LOC: ER 02:39 → EROBS 06:19 → 3W 06:19
PROVIDERS: Emergency Medicine; Hospitalist; Internal Medicine; Internal Medicine Hematology & Oncology; Surgery; ADMIT Hospitalist
PROC: 30233N1 Transfusion of Nonautologous Red Blood Cells into Peripheral Vein, Percutaneous Approach (ICD-10-PCS; principal; 2019-04-09)
DX: K85.90 Acute pancreatitis without necrosis or infection, unspecified (principal); E43 Unspecified severe protein-calorie malnutrition; K65.1 Peritoneal abscess; N17.9 Acute kidney failure, unspecified; N28.0 Ischemia and infarction of kidney; C18.9 Malignant neoplasm of colon, unspecified; I10 Essential (primary) hypertension; E86.0 Dehydration; D47.3 Essential (hemorrhagic) thrombocythemia; D50.9 Iron deficiency anemia, unspecified; E87.5 Hyperkalemia; D72.829 Elevated white blood cell count, unspecified; E88.09 Other disorders of plasma-protein metabolism, not elsewhere classified; Z68.1 Body mass index [BMI] 19.9 or less, adult; Z93.3 Colostomy status; Z90.49 Acquired absence of other specified parts of digestive tract
CPT/HCPCS: 10879

== ENCOUNTER 2019-04-12 14:40 | Inpatient (IN) | payer OTHER ==
[~2019-04-12] VITALS: Ht 175.3 cm; Wt 56.7 kg
[~2019-04-12 14:40] MED LIST changes: +MAPAP500 MG PO
[2019-04-12 14:49] VITALS: BP 75/53
[2019-04-12 16:38] LABS: HEMOGLOBIN 8.7 gm/dL (14.0-18.0)
[2019-04-12 16:40] LABS: HEMATOCRIT 28.6 % (42.0-52.0); MCH 23.9 pg (26.0-34.0); MCHC 30.5 g/dL (28.0-37.0); MCV 78.6 fL (80.0-100.0); RBC 3.64 mil/uL (4.50-6.00); RDW 29.3 % (10.5-14.5); WBC 13.4 thou/uL (4.0-11.0)
[2019-04-12 16:46] LABS: PLATELET COUNT 657 thou/uL (150-400)
[2019-04-12 16:54] LABS: CALCIUM 8.4 mg/dL (8.5-10.1); POTASSIUM 4.1 mmol/L (3.5-5.1)
[2019-04-12 16:57] LABS: ABSOLUTE NEUTROPHILS 11.3 thou/uL (1.4-8.2); ANISOCYTOSIS 3+; HYPOCHROMASIA 1+; MICROCYTES 1+; PLATELET ESTIMATE INCREASED
[2019-04-12 16:58] LABS: MACROCYTES 1+; POIKILOCYTOSIS 2+; POLYCHROMASIA SLIGHT; TARGET CELLS 1+; TEARDROPS OCCASIONAL; TOTAL BILIRUBIN 0.2 mg/dL (<0.1-1.0); TOTAL PROTEIN 7.4 g/dL (6.4-8.2)
[2019-04-12 16:59] LABS: BURR CELLS OCCASIONAL; LARGE PLATELETS FEW
[2019-04-12 20:23] VITALS: BP 104/59
[2019-04-12 20:33] LABS: FOLIC ACID 17.5 ng/mL (8.6-58.9); TSH 2.705 uIU/mL (0.358-3.740)
[2019-04-12 20:55] VITALS: BP 90/60
[2019-04-13] VITALS (89 sets, daily range): BP systolic 51–154; BP diastolic 32–112
--- NOTE | 2019-04-13 02:44 | NUR ---
PT TO UNIT AROUND 2029. ORIENTED TO UNIT, NURSE AND USE OF CALL LIGHT. FALL [employer] CONTRACT SIGNED, PRECUATIONS IN PLACE. PT REPORTS HE FEELS A LOT BETTER THAN WHEN HE GOT HERE. COLOSTOMY INTACT WITH LARGE AMOUNTS OF LIQUID STOOL CONTAINING BLOOD, SAMPLE SENT TO LAB. BP LOW ALL SHIFT, BOLUS GIVEN. RUNNING TACHY WELL. ANTIBIOTIBS INFUSED PER ORDER. SCDS APPLIED. CURRENTLY WEARING 2L O2, DIFFICULT TO GET A READ ON DUE TO COLD FINGERS. FIANCE AT BEDSIDE, BOTH SLEEPING CURRENTLY. WILL CONTINUE TO MONITOR.
--- NOTE | 2019-04-13 04:00 | NUR ---
Pt with massive blood loss from colostomy, so far he had approximately 1000 cc of flank red blood, Hb 4.3 per ABG result(previously 8.7). BP low ,it was reading in 50's during code. NS bolus are in progress at this time. Massive blood transfusion protocol activated. Will give PRBC,FFP and Cryo once they are available.
--- NOTE | 2019-04-13 04:00 | NUR ---
Pt is very cold possible due to hypovolumic shock. Unable to obtain temp at this time. Will give fluid and place amber jeroder on pt.
[2019-04-13 04:19] LABS: BE(vivo) -27.1 mmol/L (-2 to +3); HCO3 5.8 mmol/L (22.0-26.0); PCO2 45.9 mmHg (35.0-45.0); PO2 473.7 mmHg (80.0-100.0); sO2 99.5 % (92.0-98.0)
--- NOTE | 2019-04-13 04:21 | NUR ---
PT CODED AT 0333 IN ROOM 353. TRANSFERRED TO ICU. RECEIVED TO ROOM 246 AT 0400. PT INTUBATED WITH 7.5 ETT 23 CM AT LIP, PLACED ON Tv 450, FiO2 100%, AC 22, PEEP 5. NG PLACED ON ARRIVAL, SMALL AMOUNT DARK BROWN COFFE GROUND RETURN. PT NOT RESPONDING. MONITOR SR.
[2019-04-13 04:27] LABS: WBC 7.6 thou/uL (4.0-11.0)
[2019-04-13 04:29] LABS: MCHC 28.7 g/dL (28.0-37.0); RBC 1.78 mil/uL (4.50-6.00); RDW 28.6 % (10.5-14.5)
[2019-04-13 04:31] LABS: HEMOGLOBIN 4.3 gm/dL (14.0-18.0)
[2019-04-13 04:32] LABS: MCV 83.8 fL (80.0-100.0)
--- NOTE | 2019-04-13 04:32 | NUR ---
CALL PLACED TO DR. CALDERON'S ANSWERING SERVICE. PT RECEIVING 2 UPC'S PER MASSIVE TRANSFUSION PROTOCOL. RLQ COLOSTOMY BAG FULL OF DARK RED BLOOD.
[2019-04-13 04:37] LABS: CALCIUM 6.5 mg/dL (8.5-10.1); CREATININE 1.9 mg/dL (0.7-1.3)
[2019-04-13 04:38] LABS: POTASSIUM 5.1 mmol/L (3.5-5.1)
--- NOTE | 2019-04-13 04:44 | NUR ---
SUMIT RAYP SPEAKING WITH DR. CALDERON, SURGERY SERVICE PER PHONE REGARDING PT.
--- NOTE | 2019-04-13 05:05 | NUR ---
DR. AGUIRRE HERE AT BEDSIDE TO PLACE CENTRAL LINE. PT HAS RECEIVED 2 UPC SINCE ARRIVAL TO ICU AND IS NOW RECEIVING FFP PER MASS TRANSFUSION PROTOCOL. STAT CONSULT CALLED TO GI SERVICE ORDERED BY DR. CALDERON.
[2019-04-13 05:25] LABS: APTT 73.6 Seconds (24.5-32.8); INR 1.6; PROTIME 15.9 Seconds (9.3-11.4)
[2019-04-13 06:10] LABS: HEMATOCRIT 31.9 % (42.0-52.0); MCH 27.3 pg (26.0-34.0); MCHC 30.8 g/dL (28.0-37.0); RBC 3.59 mil/uL (4.50-6.00); RDW 19.6 % (10.5-14.5); WBC 10.8 thou/uL (4.0-11.0)
[2019-04-13 06:20] LABS: HEMOGLOBIN 9.8 gm/dL (14.0-18.0); MCV 88.8 fL (80.0-100.0)
--- NOTE | 2019-04-13 06:31 | NUR ---
condominium property manager called for decreased loc, change in respiratory status, and gi bleed. see condominium property manager flowsheet.
--- NOTE | 2019-04-13 07:00 | NUR ---
Late entry: Pt remains in a critical conditions. He is continue to be on high dose of levophed due to low BP. Bleeding at ostomy site seems slowing down,multiple large blood clots noted in bag. He is waiting for bleeding scan to be done. Still not making any urine,will notify . Family has been updates regarding of pt's conditions t/o the shift. Report hand off to am shift RN.
[2019-04-13 10:44] LABS: MCH 25.8 pg (26.0-34.0); MCHC 30.9 g/dL (28.0-37.0); RBC 4.79 mil/uL (4.50-6.00); RDW 18.7 % (10.5-14.5); WBC 19.6 thou/uL (4.0-11.0)
[2019-04-13 10:53] LABS: HEMOGLOBIN 12.4 gm/dL (14.0-18.0); MCV 83.5 fL (80.0-100.0)
[2019-04-13 10:57] LABS: CALCIUM 6.9 mg/dL (8.5-10.1); CREATININE 2.1 mg/dL (0.7-1.3)
[2019-04-13 12:58] LABS: BE(vivo) -11.9 mmol/L (-2 to +3); HCO3 14.7 mmol/L (22.0-26.0); PCO2 35.6 mmHg (35.0-45.0); PO2 90.9 mmHg (80.0-100.0); pH 7.233 (7.360-7.450); sO2 95.6 % (92.0-98.0)
[2019-04-13 15:17] LABS: BE(vivo) -6.2 mmol/L (-2 to +3); HCO3 19.1 mmol/L (22.0-26.0); PCO2 37.3 mmHg (35.0-45.0); PO2 72.9 mmHg (80.0-100.0); sO2 93.8 % (92.0-98.0)
[2019-04-13 15:18] LABS: pH 7.328 (7.360-7.450)
[2019-04-13 15:47] LABS: HEMATOCRIT 34.9 % (42.0-52.0); HEMOGLOBIN 11.3 gm/dL (14.0-18.0); MCH 26.8 pg (26.0-34.0); MCHC 32.4 g/dL (28.0-37.0); MCV 82.6 fL (80.0-100.0); RBC 4.22 mil/uL (4.50-6.00); RDW 19.2 % (10.5-14.5); WBC 17.4 thou/uL (4.0-11.0)
[2019-04-13 16:08] LABS: URINE BILIRUBIN NEGATIVE (Negative); URINE BLOOD 3+ (Negative); URINE CLARITY SL CLOUDY; URINE COLOR YELLOW; URINE GLUCOSE-RANDOM* NEGATIVE (Negative); URINE KETONES NEGATIVE (Negative); URINE NITRITE-REFLEX NEGATIVE (Negative); URINE PROTEIN (DIPSTICK) 1+ (Negative); URINE UROBILINOGEN 0.2 E.U./dl (0.2-1.0)
[2019-04-13 16:09] LABS: URINE LEUKOCYTES-REFLEX 2+ (Negative)
[2019-04-13 16:18] LABS: SQUAMOUS 4-10 Moderate /LPF (0-3); URINE WBC-REFLEX >25 Many /HPF (0-5)
[2019-04-13 16:19] LABS: BACTERIA-REFLEX 1-9 Few /HPF (None Seen); CRYSTALS None Seen /LPF (None Seen); HYALINE CASTS 0-3 Few /LPF (None Seen); URINE RBC >20 Many /HPF (0-2)
--- NOTE | 2019-04-13 19:17 | NUR ---
low urine output reported to Dr Shelton -orders to start 1/2 NS at 75ml/hr
[2019-04-13 23:13] LABS: HEMATOCRIT 32.7 % (42.0-52.0); HEMOGLOBIN 10.7 gm/dL (14.0-18.0); MCH 26.7 pg (26.0-34.0); MCHC 32.7 g/dL (28.0-37.0); MCV 81.7 fL (80.0-100.0); RDW 18.5 % (10.5-14.5); WBC 23.1 thou/uL (4.0-11.0)
[2019-04-14] VITALS (85 sets, daily range): BP systolic 88–135; BP diastolic 50–76
[2019-04-14 05:34] LABS: HEMOGLOBIN 11.2 gm/dL (14.0-18.0); MCH 26.3 pg (26.0-34.0); MCHC 32.1 g/dL (28.0-37.0); PLATELET COUNT 283 thou/uL (150-400); RBC 4.26 mil/uL (4.50-6.00); RDW 19.1 % (10.5-14.5); WBC 29.8 thou/uL (4.0-11.0)
[2019-04-14 05:47] LABS: INR 1.6; PROTIME 16.1 Seconds (9.3-11.4)
[2019-04-14 05:57] LABS: ALBUMIN 1.4 g/dL (3.4-5.0); CREATININE 2.7 mg/dL (0.7-1.3); POTASSIUM 3.3 mmol/L (3.5-5.1); TOTAL BILIRUBIN 0.4 mg/dL (<0.1-1.0); TOTAL PROTEIN 4.9 g/dL (6.4-8.2)
--- NOTE | 2019-04-14 06:44 | NUR ---
No event overnight. Pt remains in critical conditions. Continue to be on levophed gtt, able to wean it down to 10 mcg/min this am. Continue to be on protonix gtt. NGT and Colostomy are draining dark green material, no signs of any active bleeding. CBC obtained q 8 hrs as protocol. Urine output has been slightly improved, CR elevated. Updates during round. Family has been updates. Continue working toward goals.
[2019-04-14 09:18] LABS: HEMATOCRIT 33.7 % (42.0-52.0); HEMOGLOBIN 10.8 gm/dL (14.0-18.0); MCV 81.3 fL (80.0-100.0); RBC 4.14 mil/uL (4.50-6.00); RDW 19.1 % (10.5-14.5); WBC 30.2 thou/uL (4.0-11.0)
--- NOTE | 2019-04-14 09:58 | HC ---
[facility] [place] [address] CONSULTATION Name: DEBBI SOL Room #: 246-P [facility] IN .R.#: [id number] Admission: 04/12/19 Attend Phys: Noel Reynoso MD Discharge: Date of : 59 Report #: [id number] THIS REPORT FOR: cc: [facility] - Clinic physician unknown [facility] - Clinic physician unknown Timmy Roa MD ~ CC: Noel Reynoso [facility] unknown Chao Blankenship DATE OF SERVICE: 04/12/2019 REASON FOR CONSULTATION: GI bleed. HISTORY OF PRESENT ILLNESS: The patient is a 64-year-old gentleman who was apparently brought to the hospital yesterday with weakness. He was discharged on ____ after having undergone a right hemicolectomy with colostomy for colon cancer. I was called this morning at 5:00 a.m. The patient was pouring out massive amounts of bright red blood per his ostomy. A nasogastric tube was placed. There was brown material present initially and this continues to be the case now. The patient is sedated and intubated. History is obtained from the chart. He was recently hospitalized for a partial small-bowel obstruction. There is report of anemia and an intestinal mass. On the chart, there was report of a high ostomy output being an issue. PAST MEDICAL HISTORY: Colon cancer, status post hemicolectomy and ostomy as mentioned above. Previous hypovolemic shock, acute renal insufficiency, anemia, leg pain, pancreatitis, sepsis and thrombocytosis. FAMILY HISTORY: Unobtainable. SOCIAL HISTORY: Unobtainable. REVIEW OF SYSTEMS: Unobtainable. PHYSICAL EXAMINATION: GENERAL: The patient is sedated and intubated as mentioned above. He has received 4 units of packed red blood cells and other blood products. VITAL SIGNS: Blood pressure 97/80, pulse 100, respirations 22, O2 sat is 100%. HEENT: The pupils appear equal and round. Extraocular movements cannot be assessed. No scleral icterus or injection. An orotracheal tube is in place. A nasogastric tube is in place. NECK: Supple, without adenopathy. CHEST: Clear to auscultation anteriorly. CARDIOVASCULAR: Heart exhibits regular rate and rhythm without murmur. No S3. ABDOMEN: An ostomy is in place. There is red blood in this. The abdomen is [address] [address] CONSULTATION Name: DEBBI SOL Room #: 246-P [facility] IN ..#: [id number] Admission: 04/12/19 Attend Phys: Noel Reynoso MD Discharge: Date of : 59 Report #: [id number]. Bowel sounds are present. No focal tenderness or distention. A few bowel sounds are noted. EXTREMITIES: Without significant edema. RECTAL: Not performed at this time. LABORATORY DATA: This morning, the protime is 15.9, BUN 32, creatinine 1.9, sodium 5.1, white count 7600, hemoglobin 4.3 before the packed red blood cells, platelets 330. ASSESSMENT AND PLAN: Massive acute gastrointestinal bleed. The fact that there is essentially no red blood per the nasogastric tube would make an upper GI bleed highly unlikely. I think the most likely etiology would be a bleed at the surgical anastomosis. The patient has now been stabilized. I have discussed the case with Dr. Dewayne Webber of Interventional Radiology. We will proceed with the GI bleeding scan for further evaluation. If this is positive, mesenteric arteriography would be an appropriate next step. The possibility of a CT angiogram was discussed. However, the patient's creatinine is 1.9. Also, he has some retained contrast in the gut from a prior study, which might decrease the quality of that exam. This patient is critically ill and apparently has a history of colon cancer. His prognosis is extremely guarded. If the clinical course were to change that might suggest a higher likelihood of an upper GI bleed, upper endoscopy would be an option. However, based on the current presentation, I think the diagnostic yield of this would be very low. The patient's blood pressure is dropping currently. I appreciate the opportunity to participate in the care of this patient. <ELECTRONICALLY SIGNED> By: Huber Loyola MD 04/14/19 0958 [id number] Timmy Roa MD /nt
[2019-04-14 10:10] LABS: ABSOLUTE NEUTROPHILS 28.6 thou/uL (1.4-8.2); METAMYELOCYTES 2 %
[2019-04-14 10:12] LABS: ANISOCYTOSIS 2+
--- NOTE | 2019-04-14 11:17 | NUR ---
Nutrition: Severe malnutrition, intubated. REC start tube feeds if feasible. Vital AF to slowly reach goal of 55 mL/hr. If enteral not desired, REC TPN, standard to reach 65 mL/hr. Pt high refeeding syndrome risk. Advance rate cautiously.
[2019-04-14 11:26] LABS: BE(vivo) -4.7 mmol/L (-2 to +3); HCO3 19.4 mmol/L (22.0-26.0); PCO2 32.8 mmHg (35.0-45.0); pH 7.389 (7.360-7.450)
[2019-04-14 11:27] LABS: sO2 97.6 % (92.0-98.0)
--- NOTE | 2019-04-14 12:57 | NUR ---
chart review. pt was on 3w had code over weekend, hgb dropped to 4. denis. pt on vent. recent dc of cancer this year, had colon resection. pt has lots of family and friend visits, his children, and sig other ryan. " this year has been allot, did not except to hear cancer."/ sig other. active listen and support. education on dcp, transition of care, rehab, post acute and home health. ryan asked what he will need for dc, education that will take 1 day at a time, pt is currently on vent. will cont following as needed for dc needs.
--- NOTE | 2019-04-14 13:39 | NUR ---
ORDERS RECEIVED. CHART REVIEWED AND SPOKE TO Pt'S NURSE, LEILANI. P.T. ORDERS WERE RECEIVED AROUND 1800 HRS ON 04/12/19. Pt CODED ON 04/13/19. SO, WILL PLACE Pt ON HOLD UNTIL NEW ORDERS RECEIVED.
--- NOTE | 2019-04-14 13:41 | NUR ---
Pt TRANSFERRED TO ICU. O.T. ORDERS WRITTEN BEFORE TRANSFER; THEREFORE, O.T. IS ON HOLD DUE TO CHANGE IN STATUS. NEW ORDERS NEEDED IF/WHEN APPROPRIATE.
[2019-04-14 15:25] LABS: HEMATOCRIT 32.7 % (42.0-52.0); HEMOGLOBIN 10.7 gm/dL (14.0-18.0); MCH 26.9 pg (26.0-34.0); MCHC 32.8 g/dL (28.0-37.0); RBC 3.98 mil/uL (4.50-6.00); RDW 18.8 % (10.5-14.5); WBC 30.9 thou/uL (4.0-11.0)
--- NOTE | 2019-04-14 18:28 | NUR ---
PATIENT RESTING QUIETLY ON VENT, O2 SAT GREATER THAN 95 TODAY. URINE OUTPUT LOW, NS BOLUS GIVEN X3 WITH NO RESULTS, DR PAUL AWARE AND ORDERS NOTED. AROUSES EASILY. LEVOPHED INCREASED TO KEEP MEAN ARTERIAL PRESSURE GREATER THAN 65 MMHG. HEMAGLOBIN IS STABLE. WBC INCREASED SLIGHTLY. DR SLOAN AWARE. FAMILY MEMBERS UPDATED.
[2019-04-14 23:41] LABS: HEMATOCRIT 32.9 % (42.0-52.0); HEMOGLOBIN 10.4 gm/dL (14.0-18.0); MCH 26.2 pg (26.0-34.0); MCHC 31.8 g/dL (28.0-37.0); MCV 82.5 fL (80.0-100.0); RBC 3.98 mil/uL (4.50-6.00); RDW 19.7 % (10.5-14.5); WBC 32.1 thou/uL (4.0-11.0)
[2019-04-15] VITALS (89 sets, daily range): BP systolic 87–121; BP diastolic 47–67
[2019-04-15 05:24] LABS: HEMOGLOBIN 9.9 gm/dL (14.0-18.0); MCH 26.3 pg (26.0-34.0); MCHC 31.9 g/dL (28.0-37.0); MCV 82.3 fL (80.0-100.0); RBC 3.77 mil/uL (4.50-6.00); RDW 21.2 % (10.5-14.5)
[2019-04-15 05:41] LABS: ALBUMIN 1.1 g/dL (3.4-5.0); CALCIUM 6.2 mg/dL (8.5-10.1); CREATININE 3.3 mg/dL (0.7-1.3); PHOSPHORUS 4.4 mg/dL (2.5-4.9)
--- NOTE | 2019-04-15 05:47 | NUR ---
ASSUMED PT CARE AT 1900. PT INTUBATED (FIO2 NOW 45%) AND LIGHTLY SEDATED ON VERSED AND FENTANYL GTT. PT FOLLOWS COMMANDS AND NODS TO YES/NO QUESTIONS. PT HR REMAINS IN THE 120s THROUGHOUT THE NOC EXCEPT WHEN FAMILY WAS IN THE ROOM; HR SHOT UP TO THE 130s. DOUBLE STRENGHT LEVO TITRATED DOWN TO 8 MCG AND HIS BP SEEMS TO BE TOLERATING WEANING. PT HAD OVER 600ML URINE OUTPUT THIS SHIFT. PT DENIES PAIN, APPEARS STABLE AND PROGRESSING WELL TOWARDS POC. WILL CONTINUE TO CLOSELY MONITOR.
--- NOTE | 2019-04-15 17:01 | NUR ---
ASSUMED CARE @ 0700 04/15/19, PT ASSESSMENTS AND VSS COMPLETE PER ICU PROTOCOL. PT HR SUSTAINING IN THE HIGH 130'S, DR BOCANEGRA INFORMED, NEW ORDERS RECIEVED.
[2019-04-16] VITALS (42 sets, daily range): BP systolic 87–124; BP diastolic 46–69
[2019-04-16 05:20] LABS: HEMATOCRIT 33.9 % (42.0-52.0); HEMOGLOBIN 10.5 gm/dL (14.0-18.0); MCH 26.1 pg (26.0-34.0); MCHC 30.9 g/dL (28.0-37.0); MCV 84.5 fL (80.0-100.0); PLATELET COUNT 244 thou/uL (150-400); RBC 4.01 mil/uL (4.50-6.00); RDW 19.3 % (10.5-14.5); WBC 32.7 thou/uL (4.0-11.0)
[2019-04-16 05:28] LABS: CALCIUM 6.5 mg/dL (8.5-10.1); CREATININE 3.7 mg/dL (0.7-1.3); PHOSPHORUS 5.4 mg/dL (2.5-4.9); POTASSIUM 3.9 mmol/L (3.5-5.1)
--- NOTE | 2019-04-16 07:55 | NUR ---
PATIENT ON LIGHT SEDATION THROUGHOUT THE NIGHT, ABLE TO FOLLOW COMMANDS AND NOD TO YES/NO QUESTIONS. SINUS TACHYCARDIA ON LOAN SERVICING OFFICER, DR. BOCANEGRA NOTIFIED THROUGOUT THE NIGHT, FENTANYL DRIP RESTARTED IN ADDITION TO VERSED. ON VENTILATOR 45% FIO2. OSTOMY INCREASED OUTPUT. SHETH PATENT AND DRAINING GREATER THAN 30ML/HR. BLOOD SUGAR MONITORED. FAMILY UPDATED ON THE PLAN OF CARE AND ALSO DISCUSSED RULES OF ICU WITH MULTIPLE MEMBER. SOME FAMILY MEMBERS DO NOT ADHERE TO 2 PERSON RULE AND ALLOWING PERSONS UNDER 12 INTO THE ICU. FAMILY HOSTILE TOWARDS STAFF, CALLING STAFF "WATCH DOG". NOTIFIED FAMILY THAT IT IS NOT APPROPRIATE BEHAVIOR AND RE-EDUCATED FAMILY ON THE IMPORTANCE OF FOLLOWING ICU RULES. NO OTHER EVENTS NOTED THROUGHOUT THE NIGHT. PATIENT RESTED COMFORTABLY, WILL CONTINUE TO MONITOR.
--- NOTE | 2019-04-16 08:25 | NUR ---
DR. DAVIS TALKED WITH PATIENTS FAMILY WHO WAS IN ROOM. NURSE UPDATED PATIENT FAMILY BRIEFLY ON HIS NIGHT AND THE CHANGING OF HIS OSTOMY. DR. DAVIS TALKED WITH PATIENT FAMILY IN REGARDS TO THE CRITICAL STATUS OF THE PATIENT AND THE POOR PROGNOSIS. THEN NURSE EXPRESSED WE ARE GOING TO GIVE A BATH SO SHE EXPRESSED SHE WILL BE BACK IN SHORTLY WHEN WE ARE DONE.
[2019-04-16 08:57] LABS: ABSOLUTE NEUTROPHILS 31.7 thou/uL (1.4-8.2); METAMYELOCYTES 1 %
[2019-04-16 08:58] LABS: ANISOCYTOSIS 1+; PLATELET ESTIMATE NORMAL
--- NOTE | 2019-04-16 15:55 | NUR ---
PT OFF VERSED AND FENTYNL OF 0830 THIS AM. PT WILL OPEN EYES TO VERBAL STIMULATION BUT DOES NOT DO ANY PURPOSFUL MOVEMENT.VENT SETTINGS CHARTED. ADEQUATE SHETH OUTPUT. REMAINS SINUS-TACH ON MONITOR. TUBE FEED NOW AT GOAL (40). PT NOT PROGRESSING TO PLAN OF CARE. PT AND FAMILY HAVE CONSISTANTLY BEEN EDUCATED AND UPDATED. WILL CONTINUE TO MONITOR.
[2019-04-17] VITALS (33 sets, daily range): BP systolic 101–138; BP diastolic 63–82
[2019-04-17 05:53] LABS: HEMATOCRIT 32.1 % (42.0-52.0); HEMOGLOBIN 10.1 gm/dL (14.0-18.0); MCH 26.1 pg (26.0-34.0); MCHC 31.4 g/dL (28.0-37.0); MCV 83.1 fL (80.0-100.0); RBC 3.86 mil/uL (4.50-6.00); RDW 19.1 % (10.5-14.5); WBC 25.1 thou/uL (4.0-11.0)
[2019-04-17 06:22] LABS: CALCIUM 6.9 mg/dL (8.5-10.1); CREATININE 4.1 mg/dL (0.7-1.3); PHOSPHORUS 3.9 mg/dL (2.5-4.9); POTASSIUM 3.7 mmol/L (3.5-5.1)
--- NOTE | 2019-04-17 08:28 | NUR ---
PT NO LONGER ON SEDATION. DOES NOT FOLLOW COMMANDS. WITHDRAWS TO PAIN. ATTEMPTS TO OPEN EYES TO SPEECH. SINUS TACH ON THE MONITOR. ADEQUATE URINE OUT PUT VIA SHETH. PATIENT MAINTAINING ADECUATE BLOOD PRESSURES WITH LEVO. PT NOT DECOMPENSATING HOWEVER NOT PROGRESSING TOWARD GOALS
--- NOTE | 2019-04-17 11:40 | NUR ---
ON THE VENT, NO SEDATION. ATTEMEPTS TO OPEN EYES WHEN NAME IS CALLED. VITALS STABLE AND TITRATING LEVO TOLERATED. MEDICATED FOR PAIN WITH PRN MEDS, PATIENT TACHYCARDIC. TOLERATING TUBEFEEDING, COLOSTOMY AND SHETH NOTED. WILL CONTINUE WITH POC.
--- NOTE | 2019-04-17 12:00 | NUR ---
cm noted while on unite pt sig other lady friend was crying in room. cm stopped to see if could help with support. " i was late today and missed dr, he is swelling up and heart rate is way high, i needed to speak with dr"/lady friend. active listing and support during visit, obed confirmed son brandy # [phone]. cm notified MD, he unable to come down at this time and will call son brandy. information passed on to bedside nurse and spiritual care was notified as well. will cont following as needed for dc needs.
[2019-04-18] VITALS (25 sets, daily range): BP systolic 94–142; BP diastolic 67–88
[2019-04-18 04:18] LABS: HEMATOCRIT 30.1 % (42.0-52.0); HEMOGLOBIN 9.7 gm/dL (14.0-18.0); MCH 26.4 pg (26.0-34.0); MCHC 32.1 g/dL (28.0-37.0); MCV 82.3 fL (80.0-100.0); RBC 3.66 mil/uL (4.50-6.00); RDW 19.4 % (10.5-14.5); WBC 17.1 thou/uL (4.0-11.0)
[2019-04-18 04:26] LABS: ALBUMIN 0.9 g/dL (3.4-5.0); CALCIUM 7.1 mg/dL (8.5-10.1); CREATININE 4.4 mg/dL (0.7-1.3); PHOSPHORUS 3.4 mg/dL (2.5-4.9); POTASSIUM 3.3 mmol/L (3.5-5.1)
--- NOTE | 2019-04-18 10:21 | NUR ---
Assumed care at 0700. PT appeared to be sleeping but raised his eyebrows when nurse said his name. PT was able to open his right eye and follow commands. Daughters at bedside spoke with Dr. Polanco in regards to PT's status and plan of care. The passcode was given to all 3 daughters before they left PT's room. Nurse spoke with Dr. Polanco in regards to PT's sinus tachycardia. He stated he would address it. High fall risk precautions are in place. Call light is within reach. Nurse will continue to monitor.
--- NOTE | 2019-04-18 12:30 | NUR ---
PT's accuchek at 1155 was 55. Nurse rechecked PT's blood glucose and it was [address] Polanco was paged at 1204 to notify him of PT's low blood glucose as there are no hypoglycemia orders in place. Dr. Polanco stated he would add orders. Nurse will continue to monitor.
[2019-04-19] VITALS (24 sets, daily range): BP systolic 104–146; BP diastolic 64–95
[2019-04-19 06:12] LABS: ALBUMIN 0.9 g/dL (3.4-5.0); CALCIUM 7.8 mg/dL (8.5-10.1); CREATININE 4.7 mg/dL (0.7-1.3); PHOSPHORUS 3.2 mg/dL (2.5-4.9); POTASSIUM 3.1 mmol/L (3.5-5.1)
--- NOTE | 2019-04-19 06:34 | NUR ---
Pt able to nod yes/no, follows simple commands but is very weak. Tolerating tube feeding and water boluses well. Ileostomy functioning well, 400 cc brown-yellow thick liquid stool. Pt given Morphine 4 mg IVP x1 for c/o abdominal pain with adequate relief obtained. Dr. John here this a.m. Aware of labs.
--- NOTE | 2019-04-19 15:50 | NUR ---
PT OFF ALL SEDATION. NODS YES/NO TO QUESTIONS. VENT SETTINGS UNCHANGED. TUBE FEED AT GOAL. ADEQUATE URINE OUTPUT. ILIOSTOMY OUTPUT WITHOUT SIGNS OF BLEEDING. PATIENT AND FAMILY UPDATED AND EDUCATED ON PLAN OF CARE. PT NOT PROGRESSING TOWARDS PLAN OF CARE, EVIDANCE BY LACK OF VENT WEANING. WILL CONTINUE TO MONITOR.
[2019-04-20] VITALS (67 sets, daily range): BP systolic 85–141; BP diastolic 50–106
[2019-04-20 06:03] LABS: HEMATOCRIT 32.1 % (42.0-52.0); HEMOGLOBIN 10.2 gm/dL (14.0-18.0); MCH 26.2 pg (26.0-34.0); MCHC 31.7 g/dL (28.0-37.0); MCV 82.8 fL (80.0-100.0); RBC 3.88 mil/uL (4.50-6.00); RDW 18.6 % (10.5-14.5); WBC 19.3 thou/uL (4.0-11.0)
[2019-04-20 06:12] LABS: CALCIUM 8.2 mg/dL (8.5-10.1); CREATININE 5.2 mg/dL (0.7-1.3); PHOSPHORUS 2.8 mg/dL (2.5-4.9); POTASSIUM 3.6 mmol/L (3.5-5.1)
--- NOTE | 2019-04-20 07:35 | NUR ---
No changes in status overnight.
--- NOTE | 2019-04-20 14:36 | NUR ---
UPDATED PLAN OF CARE IS TO PLACE PEG TUBE TOMORROW, TRACH ON SUNDAY. FAMILY UPDATED AND EDUCATED. CARDEZEM GTT INITIATED FOR HR. NO S/S OF BLEEDING. TUBE FEED RUNNING AT GOAL. ADEQUATE URINE OUTPUT. VENT SETTINGS UNCHANGED. PT NOT PROGRESSING TOWARDS PLAN OF CARE EVIDANCE BY INABILITY TO WEAN OFF OF VENT. CPAP TRAIL LASTED FROM [phone]. WILL CONTINUE TO MONITOR.
--- NOTE | 2019-04-20 18:03 | NUR ---
RISK BENEFITS, AND ALTERNATIVE TREATMENT DISCUSSED WITH PATIENT' DPOA RELATED TO RIJ TRIPLE LUMEN CATHETER PLACEMENT. TEACHING GIVEN RELATED TO POSSIBLE COMPLICATIONS SUCH BLEEDING, INFECTION, CLOT, OR VESSEL PERFORATION. INSTRUCTION GIVEN RELATED TO CLABSI PREVENTION WITH LITERATURE PROVIDED. DPOA VOICES UNDERSTANDING TO THE ABOVE AND GIVES CONSENT. IJ TRIPLE LUMEN CATHETER PLACED R NECK VEIN. ONE STICK AND NO COMPLICATIONS. PATIENT TOLERATED WELL. IJ CATHETER IS 25CM LONG AND THERE IS 7 1/2CM EXTERNAL. BIOPATCH AND STATLOCK IN PLACE. INSERTION SITE COVERED WITH STERILE DRESSING TEGADERM. CHEST XRAY COMPLETED WITH RIJ TRIPLE LUMEN CATHETER IN THE DISTAL SVC. ORDER WORKER STELLA SANTANA NOTIFIED OKAY TO USE.
[2019-04-21] VITALS (82 sets, daily range): BP systolic 91–124; BP diastolic 57–78
--- NOTE | 2019-04-21 02:29 | NUR ---
PT ABLE TO MOUTH WORDS AND ATTEMPTS TO COMMUNICATEBY MOUTHING WORDS, HOWEVER THERE IS DIFFICUTY UNDERSTANDING HIM. PT VENT CHANGED TO PRESSURE CONTROL AT 2055. DR BOCANEGRA NOTIFIED. CARDIZEM GTT TITRATED UP BRIEFLY PER ORDER TO KEEP HR < 100; HOWEVER, HR WAS UNCHANGED WITH DECREASE IN BP INTO THE 90s SYSTOLIC. SEE DOCUMENTATION FOR TITRATION. FAMILY EDUCATED ON PLAN OF CARE AT BEDSIDE. WILL CONTINUE TO MONITOR.
[2019-04-21 04:12] LABS: BE(vivo) -8.6 mmol/L (-2 to +3); HCO3 16.8 mmol/L (22.0-26.0); PCO2 34.2 mmHg (35.0-45.0); PO2 114.6 mmHg (80.0-100.0); sO2 97.9 % (92.0-98.0)
[2019-04-21 04:14] LABS: pH 7.308 (7.360-7.450)
[2019-04-21 05:17] LABS: CREATININE 5.4 mg/dL (0.7-1.3); PHOSPHORUS 3.1 mg/dL (2.5-4.9); POTASSIUM 3.6 mmol/L (3.5-5.1)
--- NOTE | 2019-04-21 08:50 | NUR ---
pt remain on vent, iv drip and tube feeds. no family at bedside during report. possible trach and peg. will cont following as needed for dc needs.
[2019-04-21 10:32] LABS: BE(vivo) -7.3 mmol/L (-2 to +3); PCO2 35.3 mmHg (35.0-45.0); PO2 97.8 mmHg (80.0-100.0)
[2019-04-21 10:34] LABS: pH 7.325 (7.360-7.450)
--- NOTE | 2019-04-21 19:43 | NUR ---
ASSUMED CARE OF PT AT 0645. FAILED CPAP. PLAN FOR TRACH TOMORROW. NO CONSENT SIGNED, NO ORDERS PLACED. PT TYPE AND CROSS FOR BLOOD FOR SURGERY.
[2019-04-22] VITALS (46 sets, daily range): BP systolic 98–132; BP diastolic 60–80
--- NOTE | 2019-04-22 03:12 | NUR ---
ASSUMED PT CARE AT 1900. VSS EXCEPT HR WHICH WAS IN THE 110s. FAMILY IN ROOM, CARDIZEM GTT UP TO 10 MG/HR. PT IS INTUBATED BUT NOT SEDATED, WAS ALERT AND CALM, FOLLOWS COMMANDS ABLE TO NOD AND MOUTH WORDS TO QUESTIONS ASKED. TUBE FEED OFF SINCE MIDNIGHT FOR SCHEDULED SURGERY TODAY. URINE OUTPUT AVERAGES BETWEEN 25-45MLS/HR. VERSED GIVEN NEEDED FOR PAIN AND RELAXATION. PT APPEARS STABLE. BATH TODAY. PT IS NOT PROGRESSING WELL TOWARDS POC GOALS.
[2019-04-22 07:22] LABS: CALCIUM 8.6 mg/dL (8.5-10.1); CREATININE 5.7 mg/dL (0.7-1.3); POTASSIUM 3.4 mmol/L (3.5-5.1)
[2019-04-22 07:26] LABS: ALBUMIN 0.9 g/dL (3.4-5.0); PHOSPHORUS 3.3 mg/dL (2.5-4.9)
--- NOTE | 2019-04-22 08:55 | NUR ---
per rounds pt possible going for trach and peg today. no family at bedside. pt remains on vet. will cont following as needed for dc needs.
[2019-04-22 10:48] LABS: BE(vivo) -7.1 mmol/L (-2 to +3); HCO3 17.7 mmol/L (22.0-26.0); PCO2 32.8 mmHg (35.0-45.0); pH 7.349 (7.360-7.450); sO2 97.2 % (92.0-98.0)
--- NOTE | 2019-04-22 10:58 | NUR ---
Assumed care at 0700. PT wakes easily and follows commands however severe weakness is noted in all extremities. Dr. Shelton at bedside changed vent settings to CPAP trial at 0745. RT notified. It was given in report that PT would have a trach inserted today at 1400. No orders have been placed and Dr. Chirinos's note says to plan for Sunday for procedure. Dr. Chirinos was paged for order clarification in regards to trach procedure. Nurse awaiting contact. Will continue to monitor.
--- NOTE | 2019-04-22 11:31 | NUR ---
Nurse spoke with PT's son, Kolton Duran, and was able to obtain phone consent for tracheostomy procedure with another RN to verify. Kolton Duran stated he would let his siblings and the PT's significant other know. Nurse also told the son that Dr. Chirinos would be at bedside prior to procedure to speak with family if they wished. Kolton Duran said he would be here around 1330. Nurse verbalized understanding. Nurse will continue to monitor.
[2019-04-22 12:04] LABS: HEMATOCRIT 27.5 % (42.0-52.0); HEMOGLOBIN 8.7 gm/dL (14.0-18.0); MCHC 31.8 g/dL (28.0-37.0); MCV 81.9 fL (80.0-100.0); RBC 3.36 mil/uL (4.50-6.00); RDW 18.4 % (10.5-14.5); WBC 16.3 thou/uL (4.0-11.0)
[2019-04-22 12:14] LABS: APTT 37.2 Seconds (24.5-32.8); INR 1.2; PROTIME 12.1 Seconds (9.3-11.4)
--- NOTE | 2019-04-22 13:57 | NUR ---
At 1322 OR team on unit to take PT down for tracheostomy. PT's aunt, nephew, and son were present at bedside. Dr. Chirinos also present spoke with family in regards to procedure. Nurse gave bedside report to TURKEY ROLL MAKER who verbalized understanding. At 1346 they transported PT from ICU to OR. Nurse escorted family down to the family surgical waiting room.
--- NOTE | 2019-04-22 15:06 | NUR ---
1455-RECEIVED FROM O.R. W O.R. TEAM IN ATTENDANCE.--VW
--- NOTE | 2019-04-22 16:13 | NUR ---
FAXED REFERRAL TO [facility] SPOKE WITH BETHEL IN ADM SHE RECEIVED REFERRAL AND WILL REVIEW. FAXED REFERRAL TO [facility] SPOKE WITH CHAD IN ADM HE RECEIVED REFERRAL AND WILL REVIEW. DP TO FOLLOW.
--- NOTE | 2019-04-22 16:16 | NUR ---
PT arrived from OR at approximately 1455. PT had a tracheostomy where a DCT trach #8 was placed with no reported issues. PT appears drowsy. VSS. See assessment for further details. Family in waiting room. Nurse will continue to monitor.
[2019-04-23] VITALS (11 sets, daily range): BP systolic 106–141; BP diastolic 65–86
[2019-04-23 04:57] LABS: HCO3 16.7 mmol/L (22.0-26.0); PCO2 31.4 mmHg (35.0-45.0); PO2 101.6 mmHg (80.0-100.0); pH 7.343 (7.360-7.450); sO2 97.4 % (92.0-98.0)
[2019-04-23 05:20] LABS: HEMOGLOBIN 8.7 gm/dL (14.0-18.0); MCH 26.6 pg (26.0-34.0); MCHC 32.4 g/dL (28.0-37.0); MCV 82.3 fL (80.0-100.0); PLATELET COUNT 310 thou/uL (150-400); RBC 3.28 mil/uL (4.50-6.00); RDW 18.6 % (10.5-14.5); WBC 14.1 thou/uL (4.0-11.0)
[2019-04-23 05:50] LABS: POTASSIUM 3.6 mmol/L (3.5-5.1)
[2019-04-23 06:19] LABS: ALBUMIN 1.1 g/dL (3.4-5.0); CALCIUM 7.9 mg/dL (8.5-10.1); CREATININE 5.8 mg/dL (0.7-1.3); TOTAL BILIRUBIN 0.3 mg/dL (<0.1-1.0); TOTAL PROTEIN 4.9 g/dL (6.4-8.2)
--- NOTE | 2019-04-23 07:51 | NUR ---
Received report from offgoing RN and assumed patient care. Patient had a trach placed today and noted to be on the ventilator with pressure support settings. Patient also has cardizem infusing. Patient follows commands and tries to communicate. Patient is very tender to touch and move about during turns. VS remained stable and no acute events occurred during this shift.
[2019-04-23 09:04] LABS: ABSOLUTE NEUTROPHILS 13.3 thou/uL (1.4-8.2); ANISOCYTOSIS 1+; METAMYELOCYTES 1 %; PLATELET ESTIMATE NORMAL
--- NOTE | 2019-04-23 13:47 | NUR ---
Pt remains in ICU. Trach was placed yesterday and peg is being done at bedside today. [facility] here to [facility] and notes they can accept the pt clinically and have a bed available this week. Their liason has also reached out to the pt's sister and son for any questions family may have. [facility] [employer] to fax updated progress notes today. Will follow to coordinate transfer pending medical clearance.
--- NOTE | 2019-04-23 15:35 | NUR ---
FAXED CLINICAL UPDATE TO [facility] SPOKE WITH BETHEL IN ADM SHE RECEIVED UPDATE. DP TO FOLLOW.
--- NOTE | 2019-04-23 16:17 | O ---
[facility] [address] OPERATIVE REPORT Name: DEBBI SOL Room #: 246-P ADM IN M.R.#: [id number] Admission: 04/12/19 Attend Phys: Noel Reynoso MD Discharge: Date of : 59 Report #: [id number] THIS REPORT FOR: cc: [facility] - Clinic physician unknown [facility] - Clinic physician unknown Navid Chirinos MD ~ CC: Noel Reynoso MD [facility] unknown Chao Blankenship DATE OF SERVICE: 04/22/2019 PREOPERATIVE DIAGNOSES: 1. Respiratory failure. 2. Ventilatory dependence. POSTOPERATIVE DIAGNOSES: 1. Respiratory failure. 2. Ventilatory dependence. OPERATION PERFORMED: Tracheotomy. SURGEON: Dr. Navid Chirions. ANESTHESIA: General endotracheal. INDICATIONS: The patient is a 64-year-old gentleman who was admitted on 04/12 and has had a series of problems during this hospitalization. He is intubated and ventilated. I have been asked to see him for tracheotomy placement. DESCRIPTION OF PROCEDURE: The patient was brought from the Intensive Care Unit to the operating room using the existing endotracheal tube. General anesthesia was achieved, the neck was extended. The planned incision was marked out in a relaxed skin tension line above the manubrium overlying the trachea and injected with 1% Xylocaine with 1:100,000 epinephrine. The patient was prepped with Betadine, draped in a sterile fashion. The procedure began with an incision through skin and subcutaneous tissue and platysma. Subplatysmal flaps were elevated superiorly and inferiorly. Dissection was made down to the strap muscles. There were several anterior jugular veins identified, clamped between Ligaclips and divided. The strap muscles were divided in the midline and dissection was made down to the cricoid. The thyroid gland isthmus was elevated off the trachea and divided with Harmonic scalpel. Entrance was made into the trachea between the [facility] and [facility] [address] [address] OPERATIVE REPORT Name: DEBBI SOL Room #: 246-P [facility] IN [facility]#: [id number] Admission: 04/12/19 Attend Phys: Noel Reynoso MD Discharge: Date of : 59 Report #: [id number] third tracheal ring. A standard Torey flap was created inferiorly based. This was then sutured to the inferior skin flap with a 2-0 silk mattress suture. Once this was in place, and held back in concert with anesthesia, the indwelling endotracheal tube was removed, the trachea was suctioned and an 8 Shiley cuffed nonfenestrated Shiley tracheotomy tube was placed without problem. The balloon was inflated and this was connected to the anesthesia circuit confirming end-tidal CO2. The skin was then closed loosely with 4-0 Monocryl and then 2-0 silk sutures were used to suture the flaps to the skin. A Velcro tracheotomy tie was then applied. The patient was then returned to anesthesia, awake without difficulty, returned to recovery in good condition. Sponge and needle counts were correct. There was no blood loss. He was returned back to the Intensive Care Unit. <ELECTRONICALLY SIGNED> By: Navid Chirinos MD 04/23/19 1617 1449 1524 Navid Chirinos MD /nt
--- NOTE | 2019-04-23 16:18 | HC ---
[facility] [place] [address] CONSULTATION Name: DEBBI SOL Room #: 246-P ADM IN M.R.#: [id number] Admission: 04/12/19 Attend Phys: Noel Reynoso MD Discharge: Date of : 59 Report #: [id number] THIS REPORT FOR: cc: [facility] - Clinic physician unknown [facility] - Clinic physician unknown Navid Chirinos MD ~ CC: Noel Reynoso MD Care Team [facility] unknown Chao Blankenship DATE OF SERVICE: 04/22/2019 PREOPERATIVE CONSULTATION NOTE SURGEON: Navid Chirinos M.D. REASON FOR CONSULTATION: Need for tracheotomy. HISTORY OF PRESENT ILLNESS: The patient is a 64-year-old male admitted via the Emergency Department on 04/12/2019 after presenting with nausea, vomiting and diarrhea of 2 weeks' duration. The patient ultimately developed sepsis secondary to colon perforation, in addition acute renal injury with an elevating creatinine, currently 5.7. He was found to have colon cancer, underwent an exploratory laparotomy with right hemicolectomy and diverting loop ileostomy on March 17 and underwent a leak and placement of an abdominal drain and revision ileostomy on March 24. He has been intubated and ventilated and I have been asked to evaluate for tracheotomy placement. He has respiratory failure. I have discussed his case with Dr. Polanco. PAST MEDICAL HISTORY: Reviewed in the chart. The patient's current MAR was reviewed. Electronic MAR was reviewed. REVIEW OF SYSTEMS: Impossible to obtain secondary to intubation. PHYSICAL EXAMINATION: GENERAL: Shows a thin, cachectic appearing 64-year-old male. His aunt and brother are in his ICU room at my visit today. VITAL SIGNS: Show temperature of 98.4, blood pressure 112/68, pulse of 97. HEENT: The patient is orally intubated. The trachea is midline. LUNGS: Show ventilated breath sounds. LABORATORY DATA: The patient's PT this morning was 12.1 with a PTT of 37.2. CBC showed a white count of 16,300 with a hemoglobin of 8.7, the patient's platelets of 283. [facility] [address] [place] [address] CONSULTATION Name: DEBBI SOL Room #: 246-P [facility].#: [id number] Admission: 04/12/19 Attend Phys: Noel Reynoso MD Discharge: Date of : 59 Report #: [id number] ASSESSMENT: Respiratory failure, ventilatory dependent. I have discussed the procedure of tracheotomy with the patient's family, the indications, alternatives, benefits, and potential risks. They understand and desire this to be done. I have discussed the case with Dr. Polanco as well. I appreciate the consultation and ability to share in his care. <ELECTRONICALLY SIGNED> By: Navid Chirinos MD 04/23/19 1618 1342 0046 Navid Chirinos MD /nt
--- NOTE | 2019-04-23 19:47 | NUR ---
PATIENT TRACH SHILEY REMAINS SECURED IN PLACE WITH SUTURES. SANGUINOUS DRAINAGE NOTED THROUGHOUT SHIFT FROM TRACH SITE. REVIEWED W/ DR. LANIER, OPTIFOAM TO PLACED UNDER TRACH COLLAR TO MAINTAIN SKIN INTEGRITY. PATIENT ABLE TO EXPECTORATE SOME SPUTUM THROUGH MOUTH WITH USE OF YANKER. INLINE SUCTIONING REQUIRED FOR SECRETIONS, THICK CLEAR SPUTUM NOTED, PINK TINGED WAS NOTED ON ONE SUCTION THIS SHIFT. PATIENT HAD PEG TUBED PLACED THIS SHIFT. BUMPER COVERED WITH DRAINAGE FOAM & ABD PER DR. GARLAND. MEDICATION AND SMALL FLUSH ALLOWED PER DR. GARLAND, UNABLE TO RESUME TUBE FEEDING UNTIL GI HAS CLEARED PATIENT. ILEOSTOMY APPLIANCE REMAINS INTACT WITH BROWN/GREEN LIQUID DRAINAGE. SHETH REMAINS PATENT AND SECURED W/ CLEAR YELLOW URINE NOTED. PATIENT TURNED OFTEN, REFUSED ONCE DUE TO VISITING WITH FAMILY. PATIENT AOX3, DOES ATTEMPT TO ASSIST WITH CARES BUT TIRES VERY QUICKLY. COMMUNICATION BOARDS PRINTED AND GIVEN TO PATIENT FOR INCREASED COMMUNICATION ABILITY. PATIENT REPORTS PAIN MANAGED WITH MEDS. REMAINS ON CARDIZEM GTT. FALL PRECAUTIONS IN PLACE.
[2019-04-24] VITALS (22 sets, daily range): BP systolic 110–134; BP diastolic 67–84
[2019-04-24 05:08] LABS: CALCIUM 8.1 mg/dL (8.5-10.1); PHOSPHORUS 4.9 mg/dL (2.5-4.9); POTASSIUM 3.5 mmol/L (3.5-5.1)
--- NOTE | 2019-04-24 08:52 | NUR ---
OSTOMY CARE pouch edges loose, new pouch minoo applied, 2 piece system cut to fit, adapt ring applied under wafer, stoma pink viable budded w/ liq brown effluent noted, peristoma skin intact, pt cooperative, supplies at bs, noted mid line krista still in place, surgery done per DR DODGE, set staff fitter to contact for possible removal, will cont to follow recommendations cont changing appliance q3-5days and prn, 2 piece cut to fit appliance w/ adapt ring set staff fitter aware
--- NOTE | 2019-04-24 10:08 | NUR ---
PATIENT AWAKE AND ALERT, VITALS STABLE. ON THE VENT PER TRACH AND CPAP THIS MORNING. NEW PEG TUBE CLAMPED AND AWAITING ORDERS FROM GI TO RESUME TUBEFEEDING. WILL CONTINUE WITH POC.
--- NOTE | 2019-04-24 11:05 | NUR ---
discussed during los, possible ready for dc tomorrow. updates to be sent to [facility]ie [facility]. cm tried calling son brandy samuel no answer. will cont following as needed for dc needs.
--- NOTE | 2019-04-24 12:16 | NUR ---
CALLED DR. DODGE REGARDING ROSIBEL. CALLED BACK AND ORDERS RECEIVED TO REMOVE ROSIBEL AND PLACE STERI STRIPS. ORDERS EXECUTED.
--- NOTE | 2019-04-24 13:59 | NUR ---
FAXED CLINICAL UPDATE TO [facility] SPOKE WITH BETHEL SHE RECEIVED UPDATE.
--- NOTE | 2019-04-24 14:27 | NUR ---
DECLO NOTIFIED OF GCS 3-
--- NOTE | 2019-04-24 17:04 | NUR ---
OK BY GI TO RESUME TUBEFEEDING THIS AFTERNOON, RESUMED AT LOWER RATE THAN GOAL AND WILL ADVANCE TOLERATED. PATIENT MEDICATED FOR PAIN WITH PRN MEDS.
[2019-04-25] VITALS (24 sets, daily range): BP systolic 130–159; BP diastolic 80–101
[2019-04-25 06:17] LABS: CALCIUM 7.6 mg/dL (8.5-10.1); CREATININE 6.1 mg/dL (0.7-1.3); POTASSIUM 3.6 mmol/L (3.5-5.1)
--- NOTE | 2019-04-25 06:40 | NUR ---
Pt had several episodes of anxiety, and was found with the vent tubing disconnected, unsure how deliberate it was, or if it got caught in his fingers. He received prn pain meds and one dose of versed, with SOME relief obtained. He is tolerating the nepro well, no residuals, ileostomy drained 775 ml's, fischer is patent, with over 550 ml's of urine voided. The bed is in the low/lockedposition, the call light is within reach, the bed alarm is on and the pt is nearing discharge to [place], possible today.
--- NOTE | 2019-04-25 12:54 | NUR ---
pt stable for dc, discussed during los. bedside nurse notified. cm spoke with pt sig other at bedside and cm notified son brandy samuel via phone call " thank you for letting me know, someone in family knows someone who works that and they said really nice place. i will be up there to see him at [place]"/brandy samuel. bedside nurse to call report # [phone]. will cont following as needed for dc needs. pt will be transported by [facility] for vent transport.
--- NOTE | 2019-04-25 15:30 | EKG ---
[facility] [place] [address] ELECTROCARDIOGRAM REPORT Name: DEBBI SOL Dolores Room #: 246-P ADM IN M.R.#: [id number] Admission: 04/12/19 Attend Phys: Noel Reynoso MD Discharge: Date of : 59 Report #: [id number] THIS REPORT FOR: cc: [facility] - Clinic physician unknown [facility] - Clinic physician unknown Buck Dale MD [facility] THIS REPORT FOR: //name// [facility] ED Test Date: 2019-04-12 Test Time: 15:21:03 Pat Name: DEBBI SOL Department: Room: [facility] Gender: M Vinyl Installer: jaspreet : 1955 Requested By: Jasmin Zuniga Order Number: [id number] MD: Buck Dale Measurements Intervals [place] Rate: 113 P: 86 ID: 114 QRS: 77 QRSD: 64 T: 256 QT: 340 QTc: 467 Interpretive Statements Sinus tachycardia Biatrial enlargement Abnormal T, consider ischemia, diffuse leads Baseline wander in lead(s) V2 Compared to ECG 04/06/2019 05:12:21 no significant change was found Electronically Signed On 04-14-2019 8:32:32 THREAD WINDER by Buck Dale [email or web address] <ELECTRONICALLY SIGNED> By: Buck Dale MD, [facility] 04/14/19 0832 1521 1521 Buck Dale MD, FAC /EPI
--- NOTE | 2019-04-25 15:31 | EKG ---
[facility] [place] [address] ELECTROCARDIOGRAM REPORT Name: KELLYLAMDEBBI Bernal Room #: 246-P ADM IN M.R.#: [id number] Admission: 04/12/19 Attend Phys: Noel Reynoso MD Discharge: Date of : 59 Report #: [id number] THIS REPORT FOR: cc: [facility] - Clinic physician unknown [facility] - Clinic physician unknown Gold Sanchez MD ~ THIS REPORT FOR: //name// [facility] Test Date: 2019-04-15 Test Time: 20:08:26 Pat Name: DEBBI SOL Department: Room: 246 Gender: M Print Developer: Chris LAMAR : 1955 Requested By: Patrick Livingston Order Number: [id number] MD: Gold Sanchez Measurements Intervals [place] Rate: 143 P: 66 MI: 78 QRS: 50 QRSD: 99 T: 234 QT: 347 QTc: 535 Interpretive Statements Sinus tachycardia Ventricular bigeminy Low voltage, extremity leads Nonspecific T abnormalities, diffuse leads Compared to ECG 04/12/2019 15:21:03 Electronically Signed On 04-16-2019 8:30:20 STAGE HAND by Gold Sanchez [email or web address] <ELECTRONICALLY SIGNED> By: Gold Sanchez MD 04/16/19 0830 07 07 Gold Sanchez MD /EPI
--- NOTE | 2019-04-25 16:18 | NUR ---
PT TO DISCHARGE IN THE AM 3/7 TO [facility] TRANSPORT ALREADY ARRANGED WITH [facility] FOR 1000. PT'S SON NOTIFIED (DEBBI) OF DC AND TIME OF TRANSPORT. UNIT NOTIFIED AND CHART COPY PER US. AMBULANCE TRANSPORT TO BE BILLED TO CASE MANAGEMENT PER CANDE ZAFAR MGR OF CASE MANAGEMENT MEDICAID WILL NOT GIVE AUTH FOR TRANSPORT FROM HOSPITAL TO HOSPITAL. PLEASE FAX DC ORDERS/SUMMARY TO AND CALL REPORT TO [phone].
--- NOTE | 2019-04-25 16:55 | NUR ---
PENDING TRANSFER TO [facility]. 35% TRACH COLLAR FOR MOST OF THIS SHIFT. MENDOZA/WHITE THICK SECRETIONS WITH GOOD COUGH EFFORT. TRANSFER [facility] SCHEDULED FOR 10AM ON 04/26/19. WILL BE PLACED BACK ON VENTILATOR OVERNIGHT TO REST.
[2019-04-26] VITALS (11 sets, daily range): BP systolic 136–159; BP diastolic 89–101
--- NOTE | 2019-04-26 04:13 | NUR ---
NO OVERNIGHT EVENTS. PT. AWAKE FOR MOST OF NIGHT. PT. CONTINUES TO BE ANXIOUS WHEN FAMILY MEMBERS ARE NOT AROUND. NEEDS REASSURANCE THAT TRACH AND VENT ARE WORKING PROPERLY. PT. STILL COUGHING UP LARGE AMOUNTS OF SECRETIONS WHEN ON TRACH SHIELD. PT. AND FAMILY ARE AWARE THAT TRANSFER TO [place] IS TO TAKE PLACE AROUND 10 AM THIS MORNING. WILL CONTINUE TO MONITOR.
[2019-04-26 05:17] LABS: CALCIUM 7.6 mg/dL (8.5-10.1); CREATININE 5.7 mg/dL (0.7-1.3); PHOSPHORUS 4.9 mg/dL (2.5-4.9); POTASSIUM 3.4 mmol/L (3.5-5.1)
--- NOTE | 2019-04-26 12:48 | NUR ---
Assumed cares at 0700. Patient awake and alert following commands. patient c/o pain, pain medication given with relief. Patient discharged to [facility] via, nonemergent EMS on 35% trach shield. Report called to [facility]. No further concerns at this time. patient progressed to goals.
== END 2019-04-26 12:35 | DRG 4 ==
LOC: ER 14:40 → EROBS 18:48 → 3W 20:44 → ICU 04-13 04:00
PROVIDERS: Anesthesiology; Hospitalist; Internal Medicine; Internal Medicine Gastroenterology; Internal Medicine Pulmonary Disease; Nurse Practitioner; Nurse Practitioner Acute Care; Otolaryngology Plastic Surgery within the Head & Neck; Pediatrics; Physician Assistant; ADMIT Hospitalist
DX: A41.9 Sepsis, unspecified organism (principal); J96.01 Acute respiratory failure with hypoxia; I46.9 Cardiac arrest, cause unspecified; E43 Unspecified severe protein-calorie malnutrition; G92 Toxic encephalopathy; J96.02 Acute respiratory failure with hypercapnia; J69.0 Pneumonitis due to inhalation of food and vomit; N17.0 Acute kidney failure with tubular necrosis; K29.71 Gastritis, unspecified, with bleeding; K22.11 Ulcer of esophagus with bleeding; E87.2 Acidosis; D62 Acute posthemorrhagic anemia; K92.0 Hematemesis; E87.0 Hyperosmolality and hypernatremia; Z99.11 Dependence on respirator [ventilator] status; Z68.1 Body mass index [BMI] 19.9 or less, adult; I10 Essential (primary) hypertension; D72.829 Elevated white blood cell count, unspecified; D64.9 Anemia, unspecified; I95.9 Hypotension, unspecified; E86.0 Dehydration; R13.10 Dysphagia, unspecified; Z93.2 Ileostomy status; Z23 Encounter for immunization
CPT/HCPCS: 10078; 10879; 50101; 50386; 50398; 50517; 52190; 56526; 56760; 57006; 62110; 62900; 85076

== ENCOUNTER 2019-07-07 20:49 | Inpatient (IN) | payer OTHER ==
[~2019-07-07] VITALS: Ht 152.4 cm; Wt 39.9 kg
[2019-07-07 20:52] VITALS: BP 135/97
[2019-07-07 22:27] LABS: ABSOLUTE NEUTROPHILS 6.5 thou/uL (1.4-8.2); BASOPHILS 0.6 % (0.0-2.0); EOSINOPHILS 1.2 % (0.0-3.0); HEMATOCRIT 41.3 % (42.0-52.0); HEMOGLOBIN 13.1 gm/dL (14.0-18.0); LYMPHOCYTES 24.5 % (24.0-44.0); MCH 25.7 pg (26.0-34.0); MCHC 31.6 g/dL (28.0-37.0); MCV 81.3 fL (80.0-100.0); MONOCYTES 7.7 % (1.0-8.0); PLATELET COUNT 270 thou/uL (150-400); RBC 5.09 mil/uL (4.50-6.00); RDW 18.6 % (10.5-14.5); WBC 9.8 thou/uL (4.0-11.0)
[2019-07-07 22:36] LABS: CALCIUM 9.9 mg/dL (8.5-10.1); CREATININE 1.5 mg/dL (0.7-1.3); POTASSIUM 4.4 mmol/L (3.5-5.1)
[2019-07-07 22:41] LABS: ALBUMIN 2.9 g/dL (3.4-5.0); TOTAL BILIRUBIN 0.3 mg/dL (<0.1-1.0); TOTAL PROTEIN 8.6 g/dL (6.4-8.2)
[2019-07-07 23:43] VITALS: BP 109/76
--- NOTE | 2019-07-07 23:45 | NUR ---
HAND OFF TOOL FAXED TO [facility]
[2019-07-08] VITALS (7 sets, daily range): BP systolic 101–149; BP diastolic 71–77
--- NOTE | 2019-07-08 01:25 | NUR ---
0020 PT TO FLOOR WITH ER TRANSPORT AFTER REPORT FROM ER, ZOSYN HUNG ON PT NOT INFUSING, AND VANCOMYCIN SENT WITH PT FROM ER. PT AWAKE ALERT AND ORIENTED X [address] WITH RADIAL PULSES PALPABLE, RESP UNLABORED, PT SLIGHTLY TACHYCARDIC AT 112 MAP >65, 250 CC'S BILE COLORED LIQUID FROM OSTOMY, PEG TUBE TO ABDOMEN, ALTHOUGH PT STATES IT IS NOT USED. PT SKIN IS RED TO ABDOMEN AROUND OSTOMY TO PERINEAL AREA ON R SIDE, BARRIER CREAM IN PLACE. WILL MONITOR WITH HOURLY ROUNDING
--- NOTE | 2019-07-08 09:06 | NUR ---
OSTOMY CARE; peristomal excoriation present w/ small areas denuded skin, also reddness below pouch as pouch had been leaking, pt states home health was assisting but he ran out of supplies, pt could not recall what home health agency was seeing him, cooperative, some discomfort due to excoriation. loop ileosostomy, red viable slightly budded, greenish brown liq effluent noted, area treated w/ marathon prep, large ugo ring and convex minoo high output pouch, supplies left at bs, will cont to follow recommendations ugo ring and marathon prep to peristomal area until healed, change 2-4 days and prn, low air loss pump ordered due to thin frail body potential skin breakdown senior staff consultant informed
--- NOTE | 2019-07-08 09:22 | NUR ---
Recommend start nocturnal tube feed of jevity 1.5 at 60ml/hr from 7p-5a (10 hrs). Need physician order.
[2019-07-08 09:24] LABS: HEMATOCRIT 40.4 % (42.0-52.0); HEMOGLOBIN 12.8 gm/dL (14.0-18.0); MCH 25.6 pg (26.0-34.0); MCHC 31.7 g/dL (28.0-37.0); MCV 80.9 fL (80.0-100.0); RBC 4.99 mil/uL (4.50-6.00); WBC 10.5 thou/uL (4.0-11.0)
--- NOTE | 2019-07-08 09:24 | NUR ---
Recommend start nocturnal tube feed of jevity 1.5 at 65ml/hr 7p-5a (10hr). Need physician order.
--- NOTE | 2019-07-08 09:40 | NUR ---
tried calling pt in room, no answer. called pt son brandy samuel unable to leave message rt voice message is full. cm spoke with beside nurse who reported pt is able to talk on phone. dietitian in visiting pt right now. wound care/ostomy [facility] nurse francis passed on information that was some information passed on by pt that hh never took supplies for his ostomy or never visited. will send home ostomy supplies with pt when he is dc from [facility]"/francis. will cont following as needed for dc needs
[2019-07-08 09:41] LABS: CALCIUM 9.8 mg/dL (8.5-10.1); CREATININE 1.9 mg/dL (0.7-1.3); MAGNESIUM 1.8 mg/dL (1.8-2.4); POTASSIUM 4.4 mmol/L (3.5-5.1)
[2019-07-09 05:38] LABS: HEMATOCRIT 36.7 % (42.0-52.0); HEMOGLOBIN 11.7 gm/dL (14.0-18.0); MCH 25.6 pg (26.0-34.0); MCHC 31.8 g/dL (28.0-37.0); MCV 80.6 fL (80.0-100.0); RBC 4.56 mil/uL (4.50-6.00); RDW 18.5 % (10.5-14.5); WBC 7.4 thou/uL (4.0-11.0)
[2019-07-09 06:03] LABS: CALCIUM 9.1 mg/dL (8.5-10.1); CREATININE 1.7 mg/dL (0.7-1.3)
[2019-07-09 07:00] VITALS: BP 88/64
--- NOTE | 2019-07-09 07:49 | NUR ---
ASSUMED PT CARTE AT 1900.PT DENIED PAIN AT START OF SHIFT.ILEOSTOMY TO HIS R SIDE,GREENISH REDDISH OUTPUT NOTED.ILEOSTOMY HOOKED TO SHETH DRAINAGE BUT IT DIDN'T WORK,PT'S BED DRENTCHED,COMPLETE BED CHANGE DONE.PT START ON JEVITY @65CC/HR AT 1930.PT STATED THAT HE WAS FULL AT 0340,PT RESTED FOR HIS TF TO BE TURNED OFF,PT REQUEST GRANTED. AREA AROUND THE ILEOSTOMY EXCORIATED.IVF AND IV ABX ADMINISTERED ORDERED.REPORT TO AM NURSE.
--- NOTE | 2019-07-09 11:00 | NUR ---
OSTOMY CARE pouch intact held for 24 hours, changed to assess peristomal skin and treat area again, less osmin, no bleeding noted, improving, marathon prep applied and 2 piece pouch high output, large amt liq greenish/brown effluent w/ flecks of food present, due to volume connected to dep drainage to fischer bed bag, assessed area w/ JORDAN RN, suggested to pt to not drink large amt liq w/ meals in order to absorb food better, also education on foods to thicken stool, cooperative and receptive to education, adapt ring w/ precut convex pouch applied, groin area improving, less osmin, stoma powder applied, supplies at bs recommendations change pouch q2-3 days till healed, then 3-5days, cont marathon prep until healed, cont high output pouch until stool thicker healed
--- NOTE | 2019-07-09 15:44 | NUR ---
Pt sleeping this afternoon. Credit Analyst spoke with the unit RN and attempted to reach pt's son Kolton Duran or sign other Marissa to verify which pcp office the pt had an appt with on 06/26. It is anticipated that the pt may need HH/ home enteral formula and supplies at [place] and he will need a PCP in place to get these services arranged. No answer from either. Message left for Marissa. Nursing will try to get name of physician from the pt once he is awake. Sister Mikaela was reachable but she does not know what dr he was suppose to see and believes he may have missed the appt due to transportation issues. The pt would have transport access to appts per [employer]. Pt now on noc tube feedings. Referral called to [facility]. They have gotten a referral on him in the past but then he did not need it at home. They indicate that the pt would have coverage per his medicaid plan for bolus feedings but would need documentation regarding his poor tolerance for them to cover a noc pump. Mt landscape architect and planner to fax enteral referral with updated RD notes and aurora count. Nursing notes pt is very weak and frail. Will ask for therapy and 5N evals.
[2019-07-09 16:10] VITALS: BP 98/73
--- NOTE | 2019-07-09 17:15 | NUR ---
FAXED REFERRAL TO [facility] FOR ENTERAL FEEDING RECEIVED CONFIRMATION LAILA (RAMILA) SPOKE WITH ARMANDO IN INTAKE AND SHE RECEIVED REFERRAL AND WILL FAX A MEDICAL NECESSITY FORM TO BE SIGNED BY PHYSICIAN. DP TO FOLLOW.
[2019-07-09 19:30] VITALS: BP 100/67
--- NOTE | 2019-07-09 19:38 | NUR ---
VSS-AFEBRILE. ALERT AND ORIENTED X 4, LUNGS CLEAR/DIMINISHED IN ALL LEE BILATERALLY. POOR APPETITE WITH ALL MEALS TODAY. MEDICATED ONCE FOR PAIN THIS SHIFT-RELIEF NOTED. ILEOSTOMY DRAINING COPIUS AMOUNTS OF GREEN FLUID TO DEPENDENT DRAINAGE BAG. STOMA IS PINK, REMAINS EXCORIATED AROUND STOMA, BUT IS REPORTEDLY MUCH BETTER, AND NOT PAINFUL. REFUSED SUPPLEMENTS WITH MEALS. VOIDING WITHOUT DIFFICULTY.
[2019-07-10 03:40] VITALS: BP 104/68
--- NOTE | 2019-07-10 06:22 | NUR ---
PT DENIED PAIN THIS SHIFT.PT CONT ON IVF AND IV ABX.PT'S TF STARTED AT 1999 AND STOPPED AT 0255 PER PT'S REQUEST.ILEOSTOMY INTACT WITH [facility]/GREENISH OUTPUT,1650CC OUT THIS SHIFT.AREA AROUND HIS OSTOMY DRY AND FLAKY.PT WITH POOR APPETITE.PT ABLE TO MAKE HIS NEEDS KNOWN.FALL PRECAUTIONS IN PLACE,CALL LIGHT WITHIN REACH.
[2019-07-10 08:18] VITALS: BP 100/71
[2019-07-10] MEDS ORDERED: LOPERAMIDE 2 MG2 M1 PO (09:24)
--- NOTE | 2019-07-10 10:04 | NUR ---
Followup: ate very poorly day 2 calorie count. No specific records kept, but has record of 25% breakfast, 10% lunch and refused dinner and refused Ensure supplements. Today ate 100% of cereal and as still working on breakfast at time of visit. Intake is highly variable. Pending discharge home today. Discussed transition to bolus feeds with Dr Reynoso. Will recommend Jevity 1.5, 240 ml bolus at 10a, 1400, and 1600 followed by 240ml water flush. Continue to allow and encourage pt to take po as tolerated. If intake consistently poor then will need to increase bolus by additional 1-2 cartons per day. Recommend frequent weights at home to determine pt progression and adequacy of nutrition. Recommendations were discussed with Kelsy dumas CM.
--- NOTE | 2019-07-10 10:36 | NUR ---
cm notified by dietitian that pt will need to be on jevity 1.5 3x day ( 1000, 1400 and 8pm) followed by 240ml water flushes, if doesnt eat well then prn can bolus. he will need to be wt at home to see if he is gain or loose wt"/cecelia dietitian. cm passed on information to cm team and update for orlando jacobs says pt will dc home today. bedside nurse reported " pt not been out of bed since been here and therapy is eval, and still have large amount of output form his ileostomy"/bedside nurse. will cont following as needed for dc needs.
[2019-07-10 13:34] VITALS: BP 108/68
[2019-07-10 13:35] VITALS: BP 108/68
[2019-07-10 16:35] VITALS: BP 110/78
--- NOTE | 2019-07-10 17:00 | NUR ---
PT DISCHARGING TODAY TO HOME WITH [facility] FAXED DC ORDERSS/SUMMARY TO RECEIVED CONFIRMATION AND THEY WILL NOTIFY PT TIME OF VISITS ALSO [facility] WILL BE FOLLOWING FOR ENTERAL FEEDINGS FAXED MEDICAL NECESSITY FORMS SIGNED BY PHYSICIAN TO JENNIFER AT [facility] RECEIVED CONFIRMATION AND THEY WILL NOTIFY PT WHEN THEY WILL VISIT.
--- NOTE | 2019-07-10 17:21 | NUR ---
VSS-AFEBRILE. CASE MGMT HAS SET UP HOME HEALTH WELL DELIEVERY OF TUBE FEEDING FOR ANTICIPATED DC TO HOME TODAY. PT/OT HAVE CLEARED PATIENT BEING SAFE FOR DISCHARGE WELL. DISCUSSED WITH PATIENT ALL DC ORDERS, VERBALIZED UNDERSTANDING.
== END 2019-07-10 17:00 | disposition home health service (06) | DRG 602 ==
LOC: ER 20:49 → 4S 23:07 → EROBS 23:07 → 4S 07-08 00:15
PROVIDERS: Emergency Medicine; Nurse Practitioner Family; ADMIT Hospitalist
DX: L03.311 Cellulitis of abdominal wall (principal); E43 Unspecified severe protein-calorie malnutrition; K94.03 Colostomy malfunction; N17.9 Acute kidney failure, unspecified; I42.9 Cardiomyopathy, unspecified; Z68.1 Body mass index [BMI] 19.9 or less, adult; I12.9 Hypertensive chronic kidney disease with stage 1 through stage 4 chronic kidney disease, or unspecified chronic kidney disease; Y83.8 Other surgical procedures as the cause of abnormal reaction of the patient, or of later complication, without mention of misadventure at the time of the procedure; Y82.8 Other medical devices associated with adverse incidents; N18.9 Chronic kidney disease, unspecified; F17.210 Nicotine dependence, cigarettes, uncomplicated; Z85.038 Personal history of other malignant neoplasm of large intestine
CPT/HCPCS: 10195

== ENCOUNTER 2019-07-26 16:59 | Inpatient (IN) | payer OTHER ==
[~2019-07-26] VITALS: Ht 175.3 cm; Wt 56.3 kg
[2019-07-26 17:03] VITALS: BP 105/54
[2019-07-26 17:54] LABS: ABSOLUTE NEUTROPHILS 7.6 thou/uL (1.4-8.2); BASOPHILS 0.2 % (0.0-2.0); EOSINOPHILS 0.2 % (0.0-3.0); HEMATOCRIT 42.9 % (42.0-52.0); HEMOGLOBIN 14.3 gm/dL (14.0-18.0); LYMPHOCYTES 9.2 % (24.0-44.0); MCH 26.2 pg (26.0-34.0); MCHC 33.3 g/dL (28.0-37.0); MCV 78.7 fL (80.0-100.0); MONOCYTES 6.7 % (1.0-8.0); PLATELET COUNT 260 thou/uL (150-400); POLYS 83.7 % (36.0-66.0); RBC 5.45 mil/uL (4.50-6.00); RDW 18.9 % (10.5-14.5); WBC 9.1 thou/uL (4.0-11.0)
[2019-07-26 18:07] LABS: URINE BILIRUBIN NEGATIVE (Negative); URINE BLOOD TRACE (Negative); URINE CLARITY CLEAR; URINE COLOR YELLOW; URINE GLUCOSE-RANDOM* NEGATIVE (Negative); URINE KETONES NEGATIVE (Negative); URINE NITRITE-REFLEX NEGATIVE (Negative); URINE PROTEIN (DIPSTICK) TRACE (Negative); URINE SPECIFIC GRAVITY 1.015 (1.005-1.035); URINE UROBILINOGEN 0.2 E.U./dl (0.2-1.0)
[2019-07-26 18:15] LABS: URINE LEUKOCYTES-REFLEX 1+ (Negative)
[2019-07-26 18:17] LABS: ALBUMIN 3.2 g/dL (3.4-5.0); CALCIUM 8.9 mg/dL (8.5-10.1); CREATININE 5.9 mg/dL (0.7-1.3); POTASSIUM 3.7 mmol/L (3.5-5.1); TOTAL BILIRUBIN 0.2 mg/dL (0.2-1.0); TOTAL PROTEIN 9.1 g/dL (6.4-8.2); YEAST-REFLEX Present (None Seen)
[2019-07-26 18:18] LABS: BACTERIA-REFLEX 1-9 Few /HPF (None Seen); CASTS None Seen /LPF (None Seen); CRYSTALS None Seen /LPF (None Seen); SQUAMOUS 0-3 Few /LPF (0-3); URINE RBC 0-2 Rare /HPF (0-2); URINE WBC-REFLEX 6-15 Few /HPF (0-5)
[2019-07-26 18:24] LABS: ANISOCYTOSIS 2+; PLATELET ESTIMATE NORMAL
[2019-07-26 19:59] VITALS: BP 115/70
[2019-07-26 20:36] VITALS: BP 115/70
[2019-07-26 21:05] VITALS: BP 117/64
[2019-07-27 01:04] VITALS: BP 93/69
[2019-07-27 03:35] VITALS: BP 111/72
[2019-07-27 07:30] VITALS: BP 110/82
[2019-07-27 12:28] LABS: ABSOLUTE NEUTROPHILS 5.9 thou/uL (1.4-8.2); BASOPHILS 0.2 % (0.0-2.0); EOSINOPHILS 0.1 % (0.0-3.0); HEMATOCRIT 38.5 % (42.0-52.0); HEMOGLOBIN 12.4 gm/dL (14.0-18.0); LYMPHOCYTES 11.1 % (24.0-44.0); MCHC 32.3 g/dL (28.0-37.0); MCV 80.4 fL (80.0-100.0); MONOCYTES 7.8 % (1.0-8.0); PLATELET COUNT 199 thou/uL (150-400); POLYS 80.8 % (36.0-66.0); RDW 18.6 % (10.5-14.5); WBC 7.4 thou/uL (4.0-11.0)
[2019-07-27 12:40] LABS: CALCIUM 7.9 mg/dL (8.5-10.1); POTASSIUM 3.5 mmol/L (3.5-5.1)
[2019-07-27 12:47] LABS: ANISOCYTOSIS 2+; TARGET CELLS FEW
[2019-07-27 13:00] VITALS: BP 108/85
[2019-07-27 13:06] LABS: CREATININE 4.7 mg/dL (0.7-1.3)
[2019-07-27 17:01] VITALS: BP 98/63
[2019-07-27 19:28] VITALS: BP 109/72
[2019-07-28 04:33] VITALS: BP 102/68
[2019-07-28 05:32] LABS: HEMATOCRIT 34.1 % (42.0-52.0); HEMOGLOBIN 11.1 gm/dL (14.0-18.0); MCH 25.6 pg (26.0-34.0); MCHC 32.5 g/dL (28.0-37.0); MCV 78.7 fL (80.0-100.0); RBC 4.33 mil/uL (4.50-6.00); RDW 18.7 % (10.5-14.5); WBC 5.9 thou/uL (4.0-11.0)
[2019-07-28 05:52] LABS: ALBUMIN 2.3 g/dL (3.4-5.0); CALCIUM 7.4 mg/dL (8.5-10.1)
[2019-07-28 05:55] LABS: CREATININE 3.4 mg/dL (0.7-1.3)
[2019-07-28 05:57] LABS: POTASSIUM 2.6 mmol/L (3.5-5.1)
[2019-07-28 07:08] VITALS: BP 102/70
--- NOTE | 2019-07-28 08:50 | EKG ---
[facility] [place] [address] ELECTROCARDIOGRAM REPORT Name: DEBBI SOL Dolores Room #: 450-P ADM IN M.R.#: [id number] Admission: 07/26/19 Attend Phys: Joseph Polanco MD Discharge: Date of : 59 Report #: [id number] THIS REPORT FOR: cc: [facility] - Clinic physician unknown [facility] - Clinic physician unknown Buck Dale MD [facility] ~ THIS REPORT FOR: //name// 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[facility] 1955 Requested By: Priscilla Covarrubias Order Number: [id number] MD: Buck Dale Measurements Intervals [place] Rate: 98 P: 93 IN: 117 QRS: 81 QRSD: 105 T: 105 QT: 325 QTc: 415 Interpretive Statements Sinus rhythm Ventricular premature complex Borderline short IN interval Right atrial abnormality Nonspecific ST and T wave abnormality Compared to ECG 04/15/2019 20:08:26 Nonspecific change in the ST and T wave segments Electronically Signed On 07-28-2019 8:48:41 CDT by Buck Dale [email or web address] <ELECTRONICALLY SIGNED> By: Buck Dale MD, [facility] 07/28/19 0848 1826 1826 Buck Dale MD, [facility] /EPI
[2019-07-28 11:11] VITALS: BP 104/67
[2019-07-28 15:41] VITALS: BP 103/70
[2019-07-28 17:05] VITALS: BP 103/70
[2019-07-28 19:16] VITALS: BP 103/71
[2019-07-29 03:37] VITALS: BP 96/61
[2019-07-29 05:20] LABS: ALBUMIN 2.1 g/dL (3.4-5.0); CALCIUM 6.7 mg/dL (8.5-10.1)
[2019-07-29 05:47] LABS: CREATININE 2.2 mg/dL (0.7-1.3)
[2019-07-29 05:48] LABS: POTASSIUM 2.6 mmol/L (3.5-5.1)
[2019-07-29 07:18] VITALS: BP 89/57
[2019-07-29 10:52] VITALS: BP 78/48; BP 90/59
[2019-07-29 14:50] VITALS: BP 89/57
[2019-07-29 19:21] VITALS: BP 89/60
[2019-07-29 19:35] VITALS: BP 127/71
[2019-07-30 04:52] VITALS: BP 93/59
[2019-07-30 05:41] LABS: HEMATOCRIT 32.2 % (42.0-52.0); HEMOGLOBIN 10.4 gm/dL (14.0-18.0); MCH 25.5 pg (26.0-34.0); MCHC 32.3 g/dL (28.0-37.0); MCV 78.9 fL (80.0-100.0); RBC 4.08 mil/uL (4.50-6.00); RDW 18.9 % (10.5-14.5); WBC 6.7 thou/uL (4.0-11.0)
[2019-07-30 06:05] LABS: CALCIUM 6.7 mg/dL (8.5-10.1); CREATININE 1.5 mg/dL (0.7-1.3); PHOSPHORUS 2.3 mg/dL (2.5-4.9); POTASSIUM 3.5 mmol/L (3.5-5.1)
[2019-07-30 07:11] VITALS: BP 88/56
--- NOTE | 2019-07-30 09:18 | HC ---
[facility] [place] [address] CONSULTATION Name: DEBBI SOL Room #: 450-P ADM IN .R.#: [id number] Admission: 07/26/19 Attend Phys: Stewart Jacobo MD Discharge: Date of : 59 Report #: [id number] THIS REPORT FOR: cc: [facility] - Clinic physician unknown [facility] - Clinic physician unknown Autumn John MD ~ CC: [facility] unknown Joseph Polanco DATE OF SERVICE: 07/27/2019 REASON FOR CONSULTATION: Acute kidney injury. REASON FOR PRESENTATION: Weakness, abdominal pain and weight loss. HISTORY OF PRESENT ILLNESS: This is a very well-known patient to me. He is an unfortunate 64-year-old with past medical history of colon cancer, cecal mass was detected back in February of this year and unfortunately, the patient has a very complicated surgical and postoperative course including peritonitis, perforation of the anastomotic site, bilateral renal infarct. During that period of time, I had followed the patient for an extended period of time and he had achieved partial recovery of his renal function. His renal function never got back to normal; however, most recent lab in June of this year revealed that his creatinine was actually anywhere from 1.5 to 1.9. The patient had been at [facility] for an extended period of time and then he was sent home. There is a concern that the home health nurse is neglecting the patient per the family. They reported that she has been visiting him only for 5 minutes. The patient was in the Emergency Room back on 07/07/2019 for colostomy bag replacement. He had some cellulitic changes. Those changes were around his colostomy bag. He was discharged on 07/10/2019. The patient has reported significant weight loss over the last few months. He had very significant output through his colostomy bag. He has a PEG tube. However, he is able to tolerate oral intake. He tells me that he has been taking Ensure supplements. When the patient presented to the Emergency Room yesterday, he had severe electrolyte derangements with sodium of 121, anion gap metabolic acidosis, BUN of 196, creatinine of 5.9 mandating a Nephrology consultation. PAST MEDICAL HISTORY: Extensive and includes the followin. Colon cancer, status post resection. 2. Peritonitis and anastomotic leak. 3. Renal infarct. 4. Severe cachexia and malnutrition. HOME MEDICATIONS: Loperamide. ALLERGIES: IBUPROFEN. [address] [address] CONSULTATION Name: SWETADEBBI Dolores Room #: 450-P [facility] IN [facility]#: [id number] Admission: 07/26/19 Attend Phys: Stewart Jacobo MD Discharge: Date of : 59 Report #: [id number] FAMILY HISTORY: Hypertension. REVIEW OF SYSTEMS: GENERAL: No fever or chills, but significant weakness. CARDIOVASCULAR: No chest pain or palpitation. PULMONARY: No cough or hemoptysis. GASTROINTESTINAL: Very significant output through his colostomy tube. GENITOURINARY: No frequency, no urgency. SKIN: Some excoriation around the colostomy bag and in the lower extremities. NEUROLOGICAL: Significant deconditioning and weakness. PHYSICAL EXAMINATION: GENERAL: Severely cachectic and emaciated. VITAL SIGNS: Temperature 36.5, blood pressure 111/72, pulse rate is 92. He is satting 100% on 2 liters by nasal cannula. HEAD AND NECK: No jugular venous distention, severe muscle wasting. CHEST: No crackles. CARDIOVASCULAR: No rub detected. ABDOMEN: Soft with a PEG tube, very significant output through his right-sided colostomy. LOWER EXTREMITIES: Severe muscle wasting. No edema. LABORATORY VALUES: Sodium 122, potassium 3.7, carbon dioxide 19, BUN 196, creatinine 5.9, CT images abdomen and pelvis with no acute process. ASSESSMENT, IMPRESSION AND PLAN: 1. Acute kidney injury due to severe prerenal azotemia. 2. Anion gap metabolic acidosis. 3. Severe hypovolemic hyponatremia. 4. Severe malnutrition. 5. Colon cancer, status post cecal resection and colostomy. 6. Bilateral renal infarct. He has a significant worsening of his renal function due to severe dehydration because of high output colostomy with inability to compensate for the losses. This was accompanied by severe metabolic acidosis, hyponatremia. 7. The patient will need aggressive fluid resuscitation and nutritional support. I have talked with his nurse to initiate him on boluses of IV fluid and thereafter that I will initiate the patient on sodium bicarbonate drip. 8. Nutritional support. 9. Continue to follow urine output. [address] [address] CONSULTATION Name: DEBBI SOL Room #: 450-P [facility] IN .R.#: [id number] Admission: 07/26/19 Attend Phys: Stewart Jacobo MD Discharge: Date of : 59 Report #: [id number] 10. Continue to follow daily labs. 11. Expect this to recover with resolution of his severe dehydration. <ELECTRONICALLY SIGNED> By: Autumn John MD 07/30/1918 0942 Autumn John MD /nt
[2019-07-30 15:36] VITALS: BP 111/71
[2019-07-30 19:58] VITALS: BP 95/49
[2019-07-31 05:44] VITALS: BP 86/53
[2019-07-31 06:16] LABS: ALBUMIN 2.1 g/dL (3.4-5.0); CALCIUM 7.2 mg/dL (8.5-10.1); CREATININE 1.2 mg/dL (0.7-1.3); PHOSPHORUS 2.1 mg/dL (2.5-4.9); POTASSIUM 3.9 mmol/L (3.5-5.1)
[2019-07-31 07:49] VITALS: BP 87/58
[2019-07-31 15:57] VITALS: BP 98/69
[2019-07-31 20:33] VITALS: BP 98/64
[2019-08-01 05:42] LABS: HEMATOCRIT 33.1 % (42.0-52.0); HEMOGLOBIN 10.6 gm/dL (14.0-18.0); MCH 25.9 pg (26.0-34.0); MCHC 31.9 g/dL (28.0-37.0); MCV 81.2 fL (80.0-100.0); RBC 4.07 mil/uL (4.50-6.00); RDW 19.3 % (10.5-14.5); WBC 6.7 thou/uL (4.0-11.0)
[2019-08-01 06:16] LABS: ALBUMIN 2.2 g/dL (3.4-5.0); CALCIUM 7.3 mg/dL (8.5-10.1); CREATININE 1.2 mg/dL (0.7-1.3); PHOSPHORUS 2.7 mg/dL (2.5-4.9); TOTAL BILIRUBIN 0.1 mg/dL (0.2-1.0); TOTAL PROTEIN 6.5 g/dL (6.4-8.2)
[2019-08-01 07:18] VITALS: BP 92/63
[2019-08-01 14:49] VITALS: BP 94/63
[2019-08-01 19:21] VITALS: BP 95/63
[2019-08-02 04:45] VITALS: BP 94/63
[2019-08-02 06:35] LABS: CALCIUM 7.6 mg/dL (8.5-10.1); POTASSIUM 4.3 mmol/L (3.5-5.1)
[2019-08-02 07:11] VITALS: BP 102/67
[2019-08-02 12:39] VITALS: BP 87/53
[2019-08-02 16:14] VITALS: BP 89/52
[2019-08-02 19:30] VITALS: BP 93/56
[2019-08-03 04:14] VITALS: BP 89/54
[2019-08-03 06:38] LABS: ALBUMIN 1.9 g/dL (3.4-5.0); CALCIUM 7.3 mg/dL (8.5-10.1); PHOSPHORUS 1.2 mg/dL (2.5-4.9); POTASSIUM 4.5 mmol/L (3.5-5.1)
[2019-08-03 07:01] VITALS: BP 95/63
[2019-08-03 13:45] VITALS: BP 97/56
[2019-08-03 19:24] VITALS: BP 100/62
[2019-08-04 06:33] LABS: ALBUMIN 1.9 g/dL (3.4-5.0); CALCIUM 7.1 mg/dL (8.5-10.1); CREATININE 0.9 mg/dL (0.7-1.3); PHOSPHORUS 1.4 mg/dL (2.5-4.9); POTASSIUM 4.1 mmol/L (3.5-5.1)
[2019-08-04 07:05] VITALS: BP 96/50
[2019-08-04 16:10] VITALS: BP 105/65
[2019-08-04 19:25] VITALS: BP 116/71
[2019-08-04 19:36] LABS: CALCIUM 7.2 mg/dL (8.5-10.1); CREATININE 0.9 mg/dL (0.7-1.3); POTASSIUM 4.3 mmol/L (3.5-5.1)
[2019-08-04 19:37] LABS: INR 1.1; PROTIME 10.9 Seconds (9.3-11.4)
[2019-08-04 19:40] LABS: PHOSPHORUS 1.4 mg/dL (2.5-4.9)
[2019-08-05] VITALS (8 sets, daily range): BP systolic 112–128; BP diastolic 66–81
[2019-08-05 06:06] LABS: HEMATOCRIT 28.1 % (42.0-52.0); HEMOGLOBIN 8.9 gm/dL (14.0-18.0); MCH 25.4 pg (26.0-34.0); MCHC 31.6 g/dL (28.0-37.0); MCV 80.3 fL (80.0-100.0); RBC 3.5 mil/uL (4.50-6.00); RDW 19.6 % (10.5-14.5); WBC 7.2 thou/uL (4.0-11.0)
[2019-08-05 07:31] LABS: CALCIUM 7.4 mg/dL (8.5-10.1); CREATININE 0.9 mg/dL (0.7-1.3); PHOSPHORUS 1.3 mg/dL (2.5-4.9); POTASSIUM 4.6 mmol/L (3.5-5.1)
[2019-08-05 16:36] LABS: HEMOGLOBIN 10.4 gm/dL (14.0-18.0)
[2019-08-05 16:38] LABS: HEMATOCRIT 32.8 % (42.0-52.0); MCH 25.8 pg (26.0-34.0); MCHC 31.6 g/dL (28.0-37.0); MCV 81.6 fL (80.0-100.0); RBC 4.02 mil/uL (4.50-6.00); RDW 19.9 % (10.5-14.5); WBC 8.9 thou/uL (4.0-11.0)
[2019-08-05 16:57] LABS: ALBUMIN 2.2 g/dL (3.4-5.0); CALCIUM 7.5 mg/dL (8.5-10.1); CREATININE 1.1 mg/dL (0.7-1.3); PHOSPHORUS 2.7 mg/dL (2.5-4.9); POTASSIUM 5.3 mmol/L (3.5-5.1)
[2019-08-05 23:02] LABS: CALCIUM 6.8 mg/dL (8.5-10.1)
[2019-08-05 23:05] LABS: POTASSIUM 4.2 mmol/L (3.5-5.1)
[2019-08-06 03:50] VITALS: BP 124/79
[2019-08-06 05:47] LABS: MCH 25.8 pg (26.0-34.0); MCHC 32.1 g/dL (28.0-37.0); MCV 80.4 fL (80.0-100.0); RBC 3.1 mil/uL (4.50-6.00); RDW 19.8 % (10.5-14.5); WBC 8.9 thou/uL (4.0-11.0)
[2019-08-06 06:02] LABS: ALBUMIN 1.9 g/dL (3.4-5.0); CREATININE 0.8 mg/dL (0.7-1.3); PHOSPHORUS 2.7 mg/dL (2.5-4.9); POTASSIUM 4.4 mmol/L (3.5-5.1)
[2019-08-06 07:16] VITALS: BP 114/74
[2019-08-06 14:45] VITALS: BP 120/85
--- NOTE | 2019-08-06 15:08 | PATH ---
[facility] [address] [place] [address] PATHOLOGY RPT PROCEDURE Name: DEBBI SOL Dolores Room #: 450-P ADM IN M.R.#: [id number] Admission: 07/26/19 Date of : 59 Discharge: Report #: [id number] Path Case #: [id number] [facility] Accession Number: [id number] . 01 Material submitted: . anastomosis - ANASTOMOSIS . 01 Clinical history: . Ileostomy Acute on chronic renal failure, hyponatremia, dehydration . 02 Diagnosis: Ileostomy anastomosis closure: - Ischemic changes present at one end of the small bowel mucosa. - Opposite end with viable small bowel mucosa. (IUV:pit 08/06/2019) QTP 08/06/2019 1137 Local . 02 Electronically signed: . Nataly Joyner MD, Pathologist NPI- [id number] . 01 Gross description: . The specimen is received in formalin, labeled "Debbi Sol Sr., anastomosis". The site is further designated on the requisition as, "ileostomy". Received is a segment of small bowel measuring 6.5 cm in length by 2.4 cm in diameter. Both margins are stapled closed. The serosal surface is pink-hanson and shaggy in appearance. At the mid aspect of the specimen, there is a stoma present with exposed pink-red mucosa measuring 3.4 x 2.6 cm. Opening the specimen reveals pink-hanson mucosa with normal architectural folds. System Development Engineer sections from each side of the stoma are submitted in cassette A1. (CAA; 08/05/2019) QAC/QA 08/05/2019 1337 Local . 02 Pathologist provided ICD-10: N17.8, E87.0, E86.0 . 02 CPT . 279578 Specimen Comment: A courtesy copy of this report has been sent to [phone] Specimen Comment: Report sent to Performed at: [address] [facility] [address] [id number] MD Zaheer Segovia MD Phone: [phone] Performed at: 02 [place] [address] PATHOLOGY RPT PROCEDURE Name: DEBBI SOL Room #: 450-P ADM IN M.R.#: [id number] Admission: 07/26/19 Date of : 59 Discharge: Report #: [id number] Path Case #: [id number] [facility] [address], [place], [place] [id number] MD Nataly Joyner MD Phone: [phone]
[2019-08-06 19:00] VITALS: BP 120/75
[2019-08-07 05:33] LABS: HEMATOCRIT 30.1 % (42.0-52.0); HEMOGLOBIN 9.6 gm/dL (14.0-18.0); MCH 25.5 pg (26.0-34.0); MCHC 31.9 g/dL (28.0-37.0); RBC 3.76 mil/uL (4.50-6.00); WBC 6.7 thou/uL (4.0-11.0)
[2019-08-07 05:57] LABS: ALBUMIN 1.9 g/dL (3.4-5.0); CALCIUM 7.6 mg/dL (8.5-10.1); CREATININE 0.7 mg/dL (0.7-1.3); PHOSPHORUS 2.2 mg/dL (2.5-4.9); POTASSIUM 4.6 mmol/L (3.5-5.1)
[2019-08-07 07:10] VITALS: BP 129/77
[2019-08-07 15:39] VITALS: BP 114/71
[2019-08-07 20:20] VITALS: BP 131/77
[2019-08-08 05:43] VITALS: BP 107/71
[2019-08-08 09:24] VITALS: BP 121/83
[2019-08-08] MEDS ORDERED: MEGESTROL400 MG/11 PO (13:44)
[2019-08-08] MEDS ORDERED: PROTONIX40 M1 PO (13:44)
[2019-08-08] MEDS ORDERED: MAGOX 400400 MG PO (13:45)
== END 2019-08-08 16:01 | DRG 987 ==
LOC: ER 16:59 → 4W 19:24 → EROBS 19:24 → 4W 20:30
PROVIDERS: Anesthesiology; Hospitalist; Internal Medicine; Nurse Practitioner; Nurse Practitioner Family; ADMIT Surgery; ATTEND Surgery
PROC: 0DBB0ZZ Excision of Ileum, Open Approach (ICD-10-PCS; principal; 2019-08-05)
DX: N17.9 Acute kidney failure, unspecified (principal); E43 Unspecified severe protein-calorie malnutrition; E87.1 Hypo-osmolality and hyponatremia; N39.0 Urinary tract infection, site not specified; E87.2 Acidosis; N28.0 Ischemia and infarction of kidney; I42.9 Cardiomyopathy, unspecified; K22.10 Ulcer of esophagus without bleeding; Z68.1 Body mass index [BMI] 19.9 or less, adult; N18.9 Chronic kidney disease, unspecified; E86.0 Dehydration; D50.9 Iron deficiency anemia, unspecified; E87.6 Hypokalemia; I95.9 Hypotension, unspecified; E83.39 Other disorders of phosphorus metabolism; Z20.828 Contact with and (suspected) exposure to other viral communicable diseases; I12.9 Hypertensive chronic kidney disease with stage 1 through stage 4 chronic kidney disease, or unspecified chronic kidney disease; Z85.038 Personal history of other malignant neoplasm of large intestine; Z82.49 Family history of ischemic heart disease and other diseases of the circulatory system; Z93.2 Ileostomy status; Z88.8 Allergy status to other drugs, medicaments and biological substances; Z88.6 Allergy status to analgesic agent; Z87.891 Personal history of nicotine dependence; Z79.1 Long term (current) use of non-steroidal anti-inflammatories (NSAID)
CPT/HCPCS: 10045; 50101; 50386; 50445; 51390; 51435; 51708; 51712; 56524; 56525; 56526; 56530; 57092; 62110; 62900; 70005

== ENCOUNTER 2019-08-07 16:32 | Inpatient (IN) | payer OTHER ==
[~2019-08-07] VITALS: Ht 175.3 cm; Wt 49.4 kg
--- NOTE | 2019-08-08 11:38 | NUR ---
chart review. pt supposed to dc to [facility] today. cm visited with him via phone call. intro to cm, team meeting and dcp ie home health. per pt and chart " live in house with son, sig other and sister. 3 steps to enter and 15 steps in past. independent when feeling ok, no dme. has [facility] through medicaid. ok with hh if needed, would be nurse only [facility]."/franny. 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 noted in chart had [facility] in past.
[2019-08-08] MEDS ORDERED: MEGESTROL400 MG/11 PO (13:44)
[2019-08-08] MEDS ORDERED: PROTONIX40 M1 PO (13:44)
[2019-08-08] MEDS ORDERED: MAGOX 400400 MG PO (13:45)
[2019-08-08 16:00] VITALS: BP 111/76
--- NOTE | 2019-08-08 17:58 | NUR ---
PT ARRIVED AT 1600 FROM 4W. ALERT AND ORIENTED*4. DENIES PAIN AT THIS TIME. HR ELEVATED, ALL OTHER VITALS REMAIN STABLE. PEG TUBE REMAINS INTACT AND PATENT, VITAL AF 1.2 ADMINISTERED VIA TUBE FEED AT 20ML/HR, TUBE FLUSHED WITH 30CC AT 1700. PT EATING HIS DINNER WELL, MONITORING INTAKE TOLERATED. INCISION ON RLQ IS DRY AND DRESSING REMAINS INTACT. LEFT FOREARM IV IS INTACT AND PATENT SL. PT UP WITH MOD ASSIST, PIVOT TRANSFER TO CHAIR/BED. HOURLY ROUNDING. FALL PRECAUTIONS IN PLACE. CALL LIGHT WITHIN REACH
[2019-08-08 19:22] VITALS: BP 106/72
--- NOTE | 2019-08-09 05:08 | NUR ---
ASSUMED CARE AT 1900. PT REQUIRED MULTIPLE REINFORCEMENTS TO REMIND HIM HE CAN'T EAT AND DRINK CONTINUOSLY OVERNIGHT. TUBE FEEDING GOING AT 20 ML/HR, NEW BAG AND TUBING HUNG AT HS. PT REPORTS TENDERNESS TO ABD, DENIES NAUSEA. LATER IN SHIFT PT C/O ABD PAIN; GAVE TYLENOL AND OBTAINED ORDER FOR OXY IR. NO OTHER CONCERNS, WILL CONTINUE TO MONITOR.
[2019-08-09 05:36] LABS: HEMATOCRIT 27.5 % (42.0-52.0); MCH 25.8 pg (26.0-34.0); MCHC 32.6 g/dL (28.0-37.0); MCV 79.3 fL (80.0-100.0); RBC 3.47 mil/uL (4.50-6.00); RDW 19.6 % (10.5-14.5); WBC 4.8 thou/uL (4.0-11.0)
[2019-08-09 05:54] LABS: CALCIUM 7.8 mg/dL (8.5-10.1); CREATININE 0.7 mg/dL (0.7-1.3); POTASSIUM 4.4 mmol/L (3.5-5.1)
[2019-08-09 07:25] VITALS: BP 117/72
--- NOTE | 2019-08-09 15:43 | NUR ---
ASSUMED CARE OF PT AT 0700. PT IS A&OX4 AND VITAL SIGNS ARE STABLE. PT REPORTS PAIN TO LEFT SIDE OF ABDOMEN, MANAGED WITH PO MEDICAIONS. REPORTS POOR SLEEP OVERNIGHT, PROVIDER AWARE AND ORDERS ENTERED FOR SLEEP AID. PEG TUBE PLACEMENT CHECKED PER PROTOCOL, AND RUNNING 20ML/HR CONTINUOUS, 30ML WATER FLUSH Q4 HOURS. PT EDUCATED ABOUT FLUID AND NUTRITIONAL INTAKE, STATES THAT HE IS HUNGRY AND IS AWARE OF PROVIDER RECOMMENDATIONS AND ORDERS, STATES THAT HE REFUSES TO BE TOLD NOT TO EAT AND DRINK LARGE AMOUNTS. PT ABLE TO VERBALIZE THE RISKS OF REFUSING TO FOLLOW PROVIDER ORDERS. SURGICAL DRESSING TO LEFT SIDE C/D/I. PT DENIES N/V. FALL PRECAUTIONS IN PLACE AND NURSING WILL CONTINUE TO MONITOR.
[2019-08-09 19:51] VITALS: BP 113/70
[2019-08-10 08:00] VITALS: BP 124/82
--- NOTE | 2019-08-10 15:05 | NUR ---
ASSUMED CARE OF PT AT 0700. PT IS A&OX4 AND VITAL SIGNS ARE STABLE. PT REPORTS ABDOMINAL PAIN AT SURGICAL SITE, PAIN MANAGED WITH PO MEDICAITONS. PT EDUCATED ABOUT DIETARY CHOICES, DUE TO REPORTS THAT HE HAS FREQUENT STOMACH DISCOMFORT, NAUSEA, AND VERY LARGE STOOLS FOLLOWING MEALS. PT ENCOURAGED TO REDUCE LIQUID INTAKE AT MEAL TIME AND CHOOSE FOODS THAT ARE CALORIE DENSE AND HIGH IN PROTEIN. PT ORDERED LUNCH WITH FOOD CHOICES DISCUSSED AND VERBALIZED OTHER FOOD CHOICES THAT WOULD PROVIDE A BALANCED MEAL THAT WILL DECREASE GASTRIC DISCOMFORT AND ASSIST IN WEIGHT GAIN. TUBE FEEDING RUNNING CONTINUOUS AT ORDERED RATE, FLUSHED WITH 30ML WATER EVERY 4 HOURS. SURGICAL DESSING C/D/I. FALL PRECAUTIONS IN PLACE AND NURSING WILL CONTINUE TO MONITOR.
--- NOTE | 2019-08-11 02:33 | NUR ---
PATIENT ASSESSED AND IS VERY FRAIL LOOKING. IS ALERT X 4. SKIN WARM AND DRY. RESP EVEN AND UNLABORFED. HAD A REVERSE OF COLOSTOMY. PEG TUBE PRESENT WITH VITAL AF 1.2 AT 20 CC HOUR. NO RESIDUAL NOTED SO FAR THIS SHIFT. HAS A SURGICAL DRESSING ONJ RIGHT ABDOMEN DRY AND INTACT. NO EDEMA NOTED.FAMILY STILLS BRING IN ALOT OF MEALS. CHICKEN AND BBQ IN REFRIG . HE ATE A BBQ RIB THAT IS ALL THE RN FOR NIGHT SEEN HIM EAT. HAD A LARGE SOFT BM AND VOIDS WELL PER URINAL.TRAZADONE GIVEN PER REQUEST. AND OXCODONE ALSO. GIVEN FOR ABDOMINAL PAIN AND BACK PAIN. ON ROOM AIR. DENIES ANY SOA. NONCOMPLIANT WITH HIS DIET. REMAINS ON SOFT DIET ALSO. UP WITH 1 PERSON ASSIST TO BSC. REMAINS STEADY ON HIS FEET. HAD A BM ON 08/09. FAMILY HAD CHURCHES CHICKEN AND DODGE BBQ. REMIANS COOPERATIVE WITH STAFF. CONT PLAN OF CARE. DELIVERED TO EAT AT THE SAME TIME ON SHIFT CHANGE. i ONLY GAVE HIM A RIB TO EAT. ALL MEDS CRUSHED AND PLACE IN FEEDING TUBE, THEN FLUHED WITH H20. WELL. CONTINUE PLAN OF CARE.
[2019-08-11 06:44] LABS: HEMATOCRIT 26.3 % (42.0-52.0); HEMOGLOBIN 8.6 gm/dL (14.0-18.0); MCH 25.9 pg (26.0-34.0); MCHC 32.7 g/dL (28.0-37.0); MCV 79.2 fL (80.0-100.0); RBC 3.32 mil/uL (4.50-6.00); RDW 19.6 % (10.5-14.5); WBC 4.9 thou/uL (4.0-11.0)
[2019-08-11 07:30] VITALS: BP 101/69
[2019-08-11 07:44] LABS: CREATININE 0.7 mg/dL (0.7-1.3); POTASSIUM 4.4 mmol/L (3.5-5.1)
--- NOTE | 2019-08-11 16:03 | NUR ---
had voice message for pastora with [facility]. cm called her back [phone], left message requesting a call back. will cont following as needed for dc needs.
--- NOTE | 2019-08-11 16:16 | NUR ---
ASSUMED CARE AROUND 0700, PT A&O X 4, NO ACUTE DISTRESS NOTED. VSS, O2 ON RA. PT C/O NAUSEA TWICE TODAY, VERY NON COMPLIANT WITH DIET, EDUCATED PT ON DUMPING SYNDROME AND CONSULTED WITH DIETITIAN WHO SPOKE TO PT AT BEDSIDE. DRESSING TO SURGICAL WOUND CHANGED BY PHYSICIAN, C/D/I. PEG TUBE IN PLACE, VITAL AF 1.2 INFUSING AT 20ML/H WITH 3O ML FLUSHES Q4H. CONTINENT OF B&B, USES BSC AND URINAL. PT RESTING IN BED, CALL LIGHT WITHIN REACH, WILL CONTINUE TO MONITOR PER POC.
[2019-08-11 16:51] LABS: MAGNESIUM 1.2 mg/dL (1.8-2.4)
[2019-08-11 19:20] VITALS: BP 113/66
--- NOTE | 2019-08-12 05:34 | NUR ---
RECIEVED CARE OF THIS PATIENT AT 1900. PATIENT ALERT AND ORIENTED X4 PATIENT HAS PEG WHICH HE IS GETTING TF AT 20ML/HR WITH 30CC H2O FLUSHES Q4HR. PATIENT WANTS T=MEDS PER TUBE BUT IS TOLD HE CAN TAKE THEM BY MOUTH. USES URINAL. DRESSING ON ABD D/I. C/O PAIN, MED GIVEN X2 WITH LITTLE RELIEF. SLEPT LITTLE THIS SHIFT.
[2019-08-12 08:00] VITALS: BP 99/64
--- NOTE | 2019-08-12 12:20 | NUR ---
Nutrition: day one calorie count per 2 meals pt consumed 1325 kcals and 48 gm protein meeting 80% kcal needs, 67% low end protein needs. Tube feeds this day plus po met 115% kcal needs, 105% protein needs. Will continue calorie count one more day but overall appetite/intake improving. Would consider switch TF to nocturnal regimen of 40 mL/hr x 12 hours 7p-7a to prevent holding for therapies during the day if tube feeds continue.
--- NOTE | 2019-08-12 12:36 | NUR ---
team meeting, recommendation: cont to encourage pt to work with therapy. dc 08/20/2019 hh nurse only, tube feeding [place]. cont cbs with [facility]. pt reported he has walker and hospital bed on main level of home.
--- NOTE | 2019-08-12 12:59 | NUR ---
WOUND CONSULT; WAS AKED TO ASSESS THIS PATIENTS ABDOMINAL DRESSINGS. A OSTOMY REVISION SITE; INTACT SUTURES WITH NO DRAINAGE. THE PEG TUB SITE HAS NO DRAINAGE. THE PATIENT DENIES PAIN. NO S/S OF INFECTION TO THE PERIWOUND. RECOMMENDATIONS; NO STING BARRIER WIPE APPLIED TO ALL AREAS. A BORDER FOAM APPLIED TO THE OLD OSTOMY SITE AND AN AG FOAM APPLIED TO THE PEF TUBE SITE. DISCUSSED WITH DILLON
--- NOTE | 2019-08-12 13:34 | NUR ---
ASSUMED CARE AROUND 0700, PT A&O X 4, NO ACUTE CHANGES NOTED. VSS, 02 ON RA. PT C/O R ABD AND BACK PAIN RELIEVED WITH PRN EX TYLENOL. DRESSING TO SURGICAL WOUND IN PLACE. PEG TUBE IN PLACE, HAS VITAL AF 1.2 INFUSING AT 20ML/H, 30ML FLUSHES Q4H. CONTINENT OF B&B, LARGE SOFT BM THIS MORNING. PT RESTING IN BED, CALL LIGHT WITHIN REACH, WILL CONTINUE TO MONITOR PER POC.
[2019-08-12 19:23] VITALS: BP 101/63
--- NOTE | 2019-08-13 00:26 | NUR ---
PT ALERT AND ORIENTED X 4. UP TO BSC WITH ASSIST X 1. PT TRANSFERRED HIMSELF FROM BSC TO BED. INSTRUCTED TO CALL FOR ASSISTANCE WHEN GETTING UP. TUBE FEEDING INFUSING ORDERED. DRESSINGS AROUND TUBE FEEDING AND TO ABD C/D/I. PT C/O PAIN IN HIS ABDOMEN AND BACK. OXYCODONE GIVEN ORDERED. TRAZADONE GIVEN AT HS PER PT REQUEST FOR SLEEP. BED ALARM ON FOR SAFETY. PT APPEARS TO BE SLEEPING ON HOURLY ROUNDS.
[2019-08-13 08:00] VITALS: BP 106/67
--- NOTE | 2019-08-13 08:49 | NUR ---
Nutrition Recs: *Day 2 calorie count resulted in ~1500 kcals, 69 g protein from PO alone. This meets 91% energy needs, 97% goal protein needs. Calorie count from meals did not include if any additional supplements were consumed. *Could consider stopping TFs as PO intake appears to be very adequate, but understand benefit in continuing trophic TF for additional kcals to support ongoing nutritional repletion given severity of malnutrition. *If TFs medically indicated to continue, REC changing to nocturnal feeds and run at 40ml/hr x 12 hrs 8pm-8am to minimize frequent stoppage for therapies.
--- NOTE | 2019-08-13 16:20 | NUR ---
ASSUMED CARE OF PT AT 0700. PT IS A&OX4 AND VITAL SIGNS ARE STABLE. PT DENIES PAIN AT THIS TIME, PARTICIPATED IN SOME THERAPIES, REFUSED GROUP THERAPY THIS SHIFT. PEG TUBE IN IN PLACE, PLACEMENT CHECKED PER PROTOCOL, RUNNING 20ML/HR WITH LESS THAN 15ML RESIDUAL, FLUSHED WITH 30ML Q4H. DRESSINGS TO ABDOMEN CHANGED PER ORDERS. PT REPORTS MULTIPLE SOFT STOOLS OVERNIGHT AND THROUGHOUT SHIFT. FALL PRECAUTIONS IN PLACE AND NURSING WILL CONTINUE TO MONITOR.
[2019-08-13 19:37] VITALS: BP 120/73
--- NOTE | 2019-08-14 00:56 | NUR ---
PT ASSESSMENT COMPLETED AND VSS. MEDS GIVEN ORDERED AND WELL TOLERATED. FALL PRECAUTIONS IN PLACE. UP TO THE BSC WITH ASST/GAIT/WALKER. LARGE BM. VOIDING MODERATE AMOUNT. TF RUNNING ORDERED AND WELL TOLERATED. 0 RESIDUAL/FLUSHES ORDERED. PT MOVING SELF FREQUENTLY IN THE BED. REQUESTING SNACKS AT HS. NOT SLEEPING EVEN AFTER SLEEPING MEDICATION. CALLING FREQUENTLY. PRN PAIN MEDICATION HELPFUL. CREAM APPLIED TO DRY SKIN ON CHEST. WILL CONTINUE TO MONITOR FREQUENTLY.
[2019-08-14 05:59] LABS: ALBUMIN 2.1 g/dL (3.4-5.0); CALCIUM 8.1 mg/dL (8.5-10.1); CREATININE 0.7 mg/dL (0.7-1.3); MAGNESIUM 1.2 mg/dL (1.8-2.4); PHOSPHORUS 2.3 mg/dL (2.5-4.9); POTASSIUM 3.9 mmol/L (3.5-5.1)
--- NOTE | 2019-08-14 11:01 | NUR ---
WOUND CARE F/U; THE RLQ SURGICAL SITE IS DRAINING SMALL AMOUNT OF THICK MILKY DRAINAGE. NO ODOR. THE AREA IS TENDER TO THE PATIENT. S/S CONSISTNT WITH A POSSIBLE INFECTION. REPORTED THIS TO THE RN. RN STATED SHE WOULD REPORT TO DR DODGE. THE LUQ PEG TUB SITE IS UNREMARKABLE. RECOMMENDATIONS; CONTINUE THE CURRENT TREATMENT FOR NOW AWAITING DR DODGE ORDERS DISCUSSSED WITH RN
[2019-08-14 11:26] LABS: HEMATOCRIT 25.2 % (42.0-52.0); HEMOGLOBIN 8.2 gm/dL (14.0-18.0); MCHC 32.5 g/dL (28.0-37.0); MCV 80.1 fL (80.0-100.0); RBC 3.15 mil/uL (4.50-6.00); RDW 19.5 % (10.5-14.5); WBC 4.4 thou/uL (4.0-11.0)
--- NOTE | 2019-08-14 12:00 | NUR ---
ASSUMED CARE AROUND 0700, PT A&O X 4, NO ACUTE DISTRESS NOTED. VSS, O2 ON RA. PT DENIED ANY PAIN OR DISCOMFORT. MEDS GIVEN PER ORDERS. ANTONIO CARRANZA (WOUND CARE) NOTED SOME DRAINAGE TO PT WOUND, NOTIFIED DR. BRAVO WHO ASSESSED PT AT BEDSIDE, ATTEMPTED TO CONTACT WOUND CARE WITH UPDATE TO ORDERS, AWAITING CALL BACK. PT PARTICIPATED IN [facility] THERAPIES, CONTINENT OF B&B, BM TODAY. SITTING IN CHAIR, CALL LIGHT WITHIN REACH, WILL CONTINUE TO MONITOR PER POC.
--- NOTE | 2019-08-14 14:54 | NUR ---
obed visited with [facility] with [facility] via phone call, obed returned her call to [phone], she was waiting an update on dcp, cm provided updated 08/20/2019 " i will check and see who his community based services is with so they can get update at co as well. he will not need hh nurse, he can get nurse through his cbs with medicaid. i will make visit to him at his home when co thank you"/pastora.
[2019-08-14 19:35] VITALS: BP 109/64
--- NOTE | 2019-08-15 01:58 | NUR ---
PT ASSESSMENT COMPLETED AND VSS. MEDS GIVEN ORDERED AND WELL TOLERATED. FALL PRECAUTIONS IN PLACE. VOIDING MODERATE AMOUNT PER URINAL. PT ENCOURAGED NOT TO DRINK CAFFINEE AT HS TO HELP HIM SLEEP. PT SLEEPING THIS EVENING. BARRIER CREAM APPLIED TO LEFT AND RIGHT BUTTOCK PRESSURE WOUNDS. PT TURNED OFF BOTTOM. TF RUNNING ORDERED. 0 RESIDUAL. FLUSHES GIVEN. PRN PAIN AND SLEEP MEDICATION HELPFUL. SLEEPING. WILL CONTINUE TO MONITOR FREQUENTLY.
[2019-08-15 08:28] VITALS: BP 109/69
--- NOTE | 2019-08-15 08:50 | NUR ---
WOUND CARE F/U ASSESSED WOUNDS W/ BAND SAW MARKER ROXY ZAYAS ABD WOUND HEALING, SCANT DRAINAGE,AD WRITER W/ WOUND CARE, NO S/S INFECTION, PEG TUBE SITE CLEAN, INTACT NO DRAINAGE, PRESSURE WOUNDS IDENTIFIED BILAT BUTTOCKS AREA, STAGE 2, SEE PROCESS INTERVENTION FOR WOUND DETAILS, PT HAS BEEN ON LOW AIR LOSS PUMP ENTIRE HOSP STAY, WT NOW UP TO 101#, ALERT AND COOPERATIVE, STRONGLY ENCOURAGED TO NOT SIT LONG PERIODS, SITS ON PILLOW WHEN IN W/C, SUGGEST ZGUARD BID AND PRN BUTTOCKS AREA, STOOL MORE FORMED NOW, NO DIARRHEA NOR INCONT RECOMMENDATIONS; CONT PACKING RLQ WOUND ORDERED W/ NUGUAZE, SILVER FOAM DRSG, AND SILVER FOAM TO PED SITE, ZGUARD TO BUTTOCKS AREA BID AND PRN, TURN Q2 HOURS AT HS, OFF LOADING, DO NOT SIT LONG PERIODS AND USE WAFFLE SEAT CUSHION OR PILLOW BAND SAW MARKER AWARE
--- NOTE | 2019-08-15 15:46 | NUR ---
ASSUMED CARES AT 0700. PT AWAKE, ORIENTED TO PERSON, PLACE AND SITUATION. FORGETFUL. DENIES PAIN. VITALS REMAIN STABLE. PEG TUBE REMAINS INTACT AND PATENT. TUBE FEEDS AT 20ML/HR, 30CC FLUSHES Q4H. PT CONTINUES TO EAT MULTIPLE MEALS THROUGHOUT THE DAY, ORDERING MEALS FROM OUTSIDE AND FAMILY DELIVERING SOME PLUS HOSPITAL MEALS. PT EDUCATION REGARDING INTAKE AND NUTRITION COMPLETED BUT PT TENDS TO FORGET/ NOT UNDERSTAND INFORMATION. OLD-COLOSTOMY SITE CLEANED AND DRESSING CHANGED PER WOUNDCARE ORDERS. PT UP WITH 1 SBA, GB AND WALKER AND TOLERATED WELL. Q1H VISUAL CHECKS. CALL LIGHT WITHIN REACH. FALL PRECAUTIONS IN PLACE
[2019-08-15 19:38] VITALS: BP 123/70
--- NOTE | 2019-08-16 00:25 | NUR ---
PT ALERT AND ORIENTED X 4. UP TO BSC WITH ASSIST X 1. ONE STOOL SO FAR TONIGHT. PT EATING ALL KINDS OF SNACKS. FAMILY SENDING FOOD IN FOR PT. PEG TUBE PATENT. DOLORES FEEDINGS WELL. DRESSINGS TO ABD AND AROUND PEG TUBE SITE C/D/I. PT DENIES PAIN OR DISCOMFORT. BED ALARM ON FOR SAFETY. PT CHECKED ON HOURLY ROUNDS.
[2019-08-16 06:32] LABS: HEMOGLOBIN 8.6 gm/dL (14.0-18.0); WBC 5.2 thou/uL (4.0-11.0)
[2019-08-16 06:34] LABS: HEMATOCRIT 25.9 % (42.0-52.0); MCH 26.3 pg (26.0-34.0); MCHC 33.3 g/dL (28.0-37.0); MCV 78.8 fL (80.0-100.0); PLATELET COUNT 630 thou/uL (150-400); RBC 3.29 mil/uL (4.50-6.00); RDW 19.5 % (10.5-14.5)
[2019-08-16 06:37] LABS: CALCIUM 8.7 mg/dL (8.5-10.1); CREATININE 0.8 mg/dL (0.7-1.3); MAGNESIUM 1.3 mg/dL (1.8-2.4); POTASSIUM 4.2 mmol/L (3.5-5.1)
[2019-08-16 08:00] VITALS: BP 122/83
[2019-08-16 10:15] LABS: ABSOLUTE NEUTROPHILS 1.9 thou/uL (1.4-8.2); ATYPICAL LYMPHS 1 %
[2019-08-16 10:17] LABS: HYPOCHROMASIA 2+; MICROCYTES 2+; PLATELET ESTIMATE INCREASED; TARGET CELLS 1+
--- NOTE | 2019-08-16 13:48 | NUR ---
ASSUMED CARES AT 0700. PT ORIENTED TO PERSON, PLACE AND SITUATION, FORGETFUL. C/O MILD PAIN AROUND ABDOMINAL INCISION DURING DRESSING CHANGE THAT RESOLVED AFTER CARES WERE COMPLETED. VITALS REMAIN STABLE. ABDOMINAL INCISION REMAINS INTACT, DRESSING CHANGED, SMALL AMOUNT OF CREAMY COLORED SECRETIONS NOTED. PEG TUBE REMAIN INTACT AND PATENT, TUBE FEEDING AT 20ML/HR. PT ATE MORE THAN 100% OF HIS BREAKFAST, HAD DIARRHEA ALMOST IMMEDIATELY AND COULDN'T WAIT FOR ASSISTANCE SO WENT PARTIALLY ON THE TRASH CAN. PT REEDUCATION ON NUTRITION AND HEALTHY DIET DONE WITH PT. PT UP WITH BARTOLO, LACEY AND JUAN. PT CONTINUES TO CALL FREQ. [id number], FOR FOOD RELATED ITEMS/CONCERNS. Q1H VISUAL CHECKS. CALL LIGHT WITHIN REACH. FALL PRECAUTIONS IN PLACE
[2019-08-16 19:19] VITALS: BP 111/68
--- NOTE | 2019-08-17 01:37 | NUR ---
PT LYING IN BED. VOIDING PER URINAL. OXY PROVIDING PAIN RELIEF. DENIES NAUSEA. RESTING COMFORTABLY. NO NEEDS VOICED. CALL LIGHT WITHIN REACH. FREQUENT OBNSERVATION.
[2019-08-17 12:38] LABS: CALCIUM 8.3 mg/dL (8.5-10.1); CREATININE 0.9 mg/dL (0.7-1.3); MAGNESIUM 1.6 mg/dL (1.8-2.4); PHOSPHORUS 2.8 mg/dL (2.5-4.9); POTASSIUM 4.3 mmol/L (3.5-5.1)
--- NOTE | 2019-08-17 18:37 | NUR ---
ASSUMED CARE OF PT AT 0700. PT IS A&OX4 AND VITAL SIGNS ARE STABLE. PT DENIES PAIN. REFUSED TURNS AND REPOSITIONING. FEEDING TUBE IN PLACE, FEEDING RUNNING AT 20ML/HR, FLUSHES 30ML Q4 HOURS. IV TO RIGHT FOREARM PATENT, DRESSING C/D/I, SITE WNL. DRESSINGS TO ABDOMEN C/D/I. FALL PRECAUTIONS IN PLACE AND NURSING WILL CONTINUE TO MONITOR.
[2019-08-17 19:20] VITALS: BP 115/68
--- NOTE | 2019-08-18 02:38 | NUR ---
PT ASSESSMENT COMPLETED AND VSS. MEDS GIVEN ORDERED AND WELL TOLERATED. TF RUNNING AT 20. FLUSHES GIVEN. RESIDUAL 0. PRN PAIN MEDICATION HELPFUL. BARRIER CREAM APPLIED TO L AND R BUTTOCK. ENCOURAGED PT TO STAY ON HIS SIDE ALL NIGHT. FALL PRECAUTIONS IN PLACE. DRESSING ON ABD DRY AND INTACT. SLEEPING WELL. WILL CONTINUE TO MONITOR FREQUENTLY.
[2019-08-18 06:02] LABS: CALCIUM 8.5 mg/dL (8.5-10.1); CREATININE 0.9 mg/dL (0.7-1.3); MAGNESIUM 1.5 mg/dL (1.8-2.4); POTASSIUM 4.4 mmol/L (3.5-5.1)
[2019-08-18 08:00] VITALS: BP 95/58
--- NOTE | 2019-08-18 09:40 | NUR ---
WOUND CARE F/U ASSESSED WOUNDS W/ FIELD PROJECT MANAGER IRIS, RLEfrain WOUND (OLD OSTOMY SITE) HEALING, SCANT DRAINAGE, DEPTH <.5CM, ALMOST CLOSED, NO DRAINAGE PEG TUBE SITE, BUTTOCKS/SACRAL WOUND HEALING, COOPERATIVE, ENCOURAGED TO NO SIT FOR LONG PERIODS, REMAINS ON LOW AIR LOSS PUMP TO BED, SEE PROCESS INTERVENTIONS FOR WOUND DETAILS RECOMMENDATIONS CONT CURRENT POC, NUGUAZE PACKING TO RLQ WOUND, COVER W/ AG FOAM, AG FOAM TO PEG TUBE SITE, ZGUARD TO BUTTOCKS/SACRAL AREA BID AND PRN, OFF LOADING, PRESSURE RELIEF, SIT ON PILLOW WHEN IN CHAIR, TURN Q 2HOURS WHEN IN BED
[2019-08-18 10:30] LABS: HEMATOCRIT 26.8 % (42.0-52.0); HEMOGLOBIN 8.7 gm/dL (14.0-18.0); MCH 25.9 pg (26.0-34.0); MCHC 32.7 g/dL (28.0-37.0); MCV 79.3 fL (80.0-100.0); RBC 3.37 mil/uL (4.50-6.00); RDW 19.2 % (10.5-14.5); WBC 6.5 thou/uL (4.0-11.0)
--- NOTE | 2019-08-18 16:37 | NUR ---
ASSUMED CARE OF PT AT 0700. PT IS A&OX4 AND VITAL SIGNS ARE STABLE. PT REPORTS PAIN TO NECK AND ABDOMEN, MANAGED WITH PO MEDICATIONS PER ORDERS, PARTICIPATED IN SCHEDULED THERAPIES. DRESSING TO ABDOMEN CHANGED PER ORDERS. PEG TUBE PATENT, RUNNING AT 20ML/HR, FLUSHED Q4H. PT REFUSES TO TURN OR REPOSITION. FALL PRECAUTIONS IN PLACE AND NURSING WILL CONTINUE TO MONITOR.
[2019-08-18 20:00] VITALS: BP 103/61
--- NOTE | 2019-08-19 03:09 | NUR ---
assumed care at appar 1900 evening 08/17. pt lying in bed with head of bed elevated at change of shift. pt somewhat restless and fussy this shift calling out for multiple requests -food, drinks, belongings, shoes, etc. peg tube infusing at 20ml/hr with pt tolerating. pt voiding per urinal. pts meds crushed and given po. bed alarm on and call light in reach. will continue to monitor.
[2019-08-19 06:40] LABS: CALCIUM 8.6 mg/dL (8.5-10.1); CREATININE 0.9 mg/dL (0.7-1.3); MAGNESIUM 1.5 mg/dL (1.8-2.4); PHOSPHORUS 3.8 mg/dL (2.5-4.9); POTASSIUM 4.3 mmol/L (3.5-5.1)
[2019-08-19 07:45] VITALS: BP 90/56
--- NOTE | 2019-08-19 08:02 | NUR ---
ASSUMED CARE AT 0700. PATIENT IS ALERT AND ORIENTED X4 BUT FORGETFUL. PATIENT TATUM'S, PATIENT IS UP WITH ASSIST OF 1 STAFF, GAIT BELT AND WALKER. LUNGS ARE CLEAR AND DEMINISHED. ABD IS SOFT WITH BSX4. FALL AND SAFETY PROTOCOLS IN PLACE. DENIES ANY PAIN AT THIS TIME. PATIENT HAS S.L. IN HIS RIGHT F.A. PATIENT HAS OPTIFOAM TO HIS ABD. PATIENT HAS T.F. AT 20 CC/HR PER PEG TUBE. PATIENT CONTINUES TO PROGESS SLOWLY TOWARDS D/C GOALS. WILL CONTINUE TO MONITER.
--- NOTE | 2019-08-19 13:02 | NUR ---
team meeting, recommendation cont with dcp 08/20/2019 with cbs and nurse. tube feeding from [facility], [place]. nurse to cont [facility] dhss following with open case.
[2019-08-19 20:49] VITALS: BP 125/79
--- NOTE | 2019-08-20 04:27 | NUR ---
Assumed pt care at 1900. Pt A/OX3 with forgetfulness. VSS. Pt c/o pain to abdomen/back LOP 10/29 medicated for pain per EMAR w/relief reported. Pt is continent of urine voiding per urinal @ NOC. Dsgs an abd C/D/I,Peg-tube on LUQ declined policy writer sales from flushing it. Pt able to reposition self in bed,on a CITLALY mattress,refused SCD's as well. Fall precautions in place, calls approp for help. ill continue to monitor pt.
[2019-08-20 08:00] VITALS: BP 97/63
[2019-08-20] MEDS ORDERED: HYDROCORTISONE30 G9 TOP (08:51)
[2019-08-20] MEDS ORDERED: MAGOX 400400 MG PO (08:51)
[2019-08-20] MEDS ORDERED: PROTONIX40 M1 PO (08:51)
[2019-08-20] MEDS ORDERED: MELATONIN5 M1 PO (08:51)
[2019-08-20 09:36] LABS: CALCIUM 8.7 mg/dL (8.5-10.1); CREATININE 0.9 mg/dL (0.7-1.3); MAGNESIUM 1.7 mg/dL (1.8-2.4); POTASSIUM 4.6 mmol/L (3.5-5.1)
--- NOTE | 2019-08-20 09:37 | NUR ---
WOUND CARE FU; ASSESSED RLQ WOUND (OLD OSTOMY SITE) W/ THIRD RIGGER DON, ONE SURGICAL STITCH REMAINS, ADVISED TO CALL SURGEON DR DODGE TO SEE IF SUTURE CAN BE REMOVED, WOUND CARE ALMOST CLOSED, NO PACKING NEEDED, AND WHETHER PT NEEDS F/U W/ SURGEON, BORDER FOAM DRSG APPLIED, BUTTOCKS/SACRAL AREA ALL HEALED, PT ALERT AND COOPERATIVE, ENCOURAGED TO NOT SIT FOR LONG PERIODS AND TO CONT PROTECTIVE CREAM PRN SACRAL/BUTTOCKS AREA, DRSG DRY INTACT PEG TUBE SITE, DRSG SUPPLIES IN ROOM FOR HOME USE RECOMMENDATIONS; CONSULT SURGEON FOR WOUND CARE TO RLQ WOUND, CONT PROTECTIVE CREAM TO SACRAL AREA PRN, OPTIFOAM AG TO PED TUBE SITE, CHANGE 3XWEEK AND PRN RN AWARE
--- NOTE | 2019-08-20 09:52 | NUR ---
ASSUMED CARE AT 0700. PATIENT IS ALERT AND ORIENTED X4. PATIENT TATUM, MIXING MACHINE FEEDER ARE EQUAL. LUNGS ARE CLEAR. ABD IS SOFT WITH BSX4. UP TO THE BSC WITH ASSIST OF 1 STAFF. PATIENT HAS ABD G.T. THAT IS PATENT AND INTACT. MARINE EQUIPMENT RESEARCH ENGINEER HAS BEEN CONSULTED FOR ASSISTANCE WITH HIGH PROTEIN/HIGH CALORIE DIET AND POSSIBLE ENSURE 2X /DAY VS BOOST 2X/DAY. DRESSSING CHANGED TO WOUND SITE. VOIDING MARK COLORED URINE PER URINAL. FALL AND SAFETY PROTOCOLS IN PLACE. DENIES PAIN AT THIS TIME. PLAN D/C LATER T0DAY. WILL CONTINUE TO MONITER.
[2019-08-20 09:59] VITALS: BP 125/79
[2019-08-20 10:11] VITALS: BP 125/79
--- NOTE | 2019-08-20 10:37 | NUR ---
RD consult received to review high protein/high calorie diet in preparation for discharge today. Discussed with pt, provided literature and recipes and encourage use of Ensure Enlive BID along with coupons to use for home. Will not be using PEG but has option to utilize if intake at meal is poor-can use can of Ensure if desired. Pt should weigh at least weekly to make sure wt gain trends continue to be seen. Pt excited to go home.
[2019-08-20 11:12] VITALS: BP 125/79
--- NOTE | 2019-08-20 11:31 | NUR ---
PATIENT GIVEN D/C INSTRUCTIONS AND SCRIPT FOR PAIN MED. PATIENT LEFT WITH ALL OF HIS BELONGINGS. PATIENT LEFT THE UNIT IN GOOD CONDTION. QUINCY DESOUZA TO PROVIDE NURSING SERVICE FOR WOUND CARE. DR. DODGE WILL REMOVE STITCH FROM [facility] ON CLINIC VISIT SEPTEMBER 02 AT 10 AM.
--- NOTE | 2019-08-20 11:47 | NUR ---
Spoke with pt and nursing this am. Pt dcing home with his son before noon. Message left with [facility] worker Gricel to confirm dc and that we are recommending home RN visits through his [facility] [place] medicaid. Call back request with agency fax number for dc instructions. Pt aware that he will need to contact the administration regarding issues he has been having with his disablity checks. Pt's son to assist with this. He may need to go into the admin office to address this issue. Pt has needed dme in place. Case closed.
[2019-08-20 12:05] VITALS: BP 125/79
--- NOTE | 2019-08-20 12:52 | NUR ---
PT WAS ON SERVICE WITH [facility] SPOKE WITH INTAKE AND THEY CAN ACCEPT AT DC FAXED UPDATE AND DC ORDERS/SUMMARY RECEIVED CONFIRMATION THEY WILL NOTIFY PT AND SET UP VISITS.
--- NOTE | 2019-08-24 09:54 | HC ---
[facility] [place] [address] CONSULTATION Name: DEBBI SOL Room #: 510-P [facility] IN M.R.#: [id number] Admission: 08/08/19 Attend Phys: Jarett Sadler MD Discharge: 08/20/19 Date of : 59 Report #: [id number] THIS REPORT FOR: cc: [facility] - Clinic physician unknown [facility] - Clinic physician unknown Jose Alberto Pacheco PhD ~ CC: Jarett DAVALOS unknown DATE OF SERVICE: 08/16/2019 NEUROBEHAVIORAL STATUS EXAMINATION ATTENDING PHYSICIAN: Jarett Sadler MD SLOT FLOOR SUPERVISOR: Jose Alberto Pacheco, PhD CLINICAL PRESENTATION: The patient is a 64-year-old male admitted to the rehab unit at [facility] for a comprehensive inpatient rehabilitation program. He was diagnosed with chrmv-[id number] renal failure upon admission to the hospital on 07/26/2019. The patient required PEG tube placement. His assessment on admission to the rehabilitation unit was weakness, hyponatremia secondary to severe prerenal azotemia, acute JEANINE on CKD, UTI, hypotension, severe PCM, ileocecal cancer, status post resection and ostomy. A complete description of his medical condition and history along with medications can be found in his medical record. Neuropsychological consultation was requested to provide assistance in the assessment of cognitive and emotional status and to provide recommendations and services. Prior to this most recent medical event, the patient was living independently in his own home. He had been living with his fiancee. He has 4 children. The patient is a high school graduate. 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 He does not report a previous history of treatment for depression or anxiety. TECHNIQUES UTILIZED: Clinical interview, review of medical records, staff consultation and behavioral observation, mini mental status exam 2 standard version, brief verbal fluency assessment, clock drawing and family interview -- sister. EXAMINATION FINDINGS: The patient was alert and cooperative with the assessment. He accurately described the reason for his hospitalization and having been in a coma for an extended time. Additional symptoms include anxiety, depressed mood, difficulty with sleep and tiredness and fatigue. He does not report difficulty with his appetite. Occasional difficulty with word finding is reported. Difficulty with memory is described since his [facility] [address] [place] [address] CONSULTATION Name: SWETADEBBI Dolores Room #: 510-P [facility] IN [facility]#: [id number] Admission: 08/08/19 Attend Phys: Jarett Sadler MD Discharge: 08/20/19 Date of : 59 Report #: [id number] hospitalization. His performance on the MMSE 2 brief version was 14/16, which is within normal limits. He was 3/3 for initial registration, 4/5 for orientation to time, 5/[address] and 2/3 for immediate recall of 3 items after a brief time delay and distraction. Performance on the MMSE 2 standard version declined to 23/30, which is a T score of 32 and percentile rank of 4. He was 1/5 for serial sevens, 2/2 for naming, 1/1 for repetition. He was 3/3 for comprehension. He could read and follow a single command and write a sentence. The patient had difficulty with copying a simple geometric design. The patient was unable to accurately set the hands of a clock at a designated time. Brief verbal fluency assessment was generally within normal limits with single letter fluency, a T score of 52 and percentile rank of 58 and single category fluency was a T score of 44 and percentile rank of 77. The patient is worried about getting better and resuming his prior lifestyle. The patient appears to be presenting with a mild neurocognitive disorder with deficits in sustained concentration and attention and very likely higher level executive functioning. Additionally, his diet appears poor as he is reportedly to be ordering food, but not eating. DIAGNOSTIC IMPRESSION: Adjustment disorder with anxious mood. Mild neurocognitive disorder, unspecified, without behavior disorder. RECOMMENDATIONS: The patient will benefit from verbal reassurance along with complements and encouragement during his participation in his rehabilitation program. The use of relaxation techniques including deep breathing strategies should also help in the management of anxiety. As he becomes increasingly independent and gains in physical strength and endurance, anxiety will likely improve. Consider a dietary consult to assist with proper nutrition management. Thank you very much for allowing me to provide the consultation on this patient. <ELECTRONICALLY SIGNED> By: Jose Alberto Pacheco, PhD 08/24/19 [id number] Jose Alberto Pacheco, PhD /nt
--- NOTE | 2019-08-25 14:59 | NUR ---
cm received message from bedside nurse that pt sister abdiaziz frederick [phone] left name requested a call back, called and had question about if he was going to get home care. cm called brandy leaving him a message with comfort care would be his [facility] and curt was going to do nursing only and any other question to call back.
== END 2019-08-20 11:31 | disposition home health service (06) | DRG 947 ==
PROVIDERS: Hospitalist; Internal Medicine; Nurse Practitioner; Nurse Practitioner Family; Surgery; ADMIT Physical Medicine & Rehabilitation; ATTEND Physical Medicine & Rehabilitation
DX: R53.81 Other malaise (principal); E43 Unspecified severe protein-calorie malnutrition; N17.9 Acute kidney failure, unspecified; N39.0 Urinary tract infection, site not specified; I42.9 Cardiomyopathy, unspecified; E87.1 Hypo-osmolality and hyponatremia; Z68.1 Body mass index [BMI] 19.9 or less, adult; N18.9 Chronic kidney disease, unspecified; Z60.2 Problems related to living alone; I12.9 Hypertensive chronic kidney disease with stage 1 through stage 4 chronic kidney disease, or unspecified chronic kidney disease; I95.9 Hypotension, unspecified; F43.20 Adjustment disorder, unspecified; G31.84 Mild cognitive impairment of uncertain or unknown etiology; E86.1 Hypovolemia; E83.39 Other disorders of phosphorus metabolism; D63.8 Anemia in other chronic diseases classified elsewhere; E83.42 Hypomagnesemia; Z88.8 Allergy status to other drugs, medicaments and biological substances; Z88.6 Allergy status to analgesic agent; Z85.89 Personal history of malignant neoplasm of other organs and systems; Z87.891 Personal history of nicotine dependence; Z93.2 Ileostomy status
CPT/HCPCS: 10112